=== PATIENT | female | born 1945 | race Caucasian/White ===

== ENCOUNTER 2019-08-09 11:30 | Outpatient (CLI) | payer MEDICARE, SELFPAY ==
--- NOTE | ~2019-08-09 | XR_ITS ---
EXAMINATION: XR lumbar spine 2-3V DATE: 08/09/2019 11:57 INDICATION: Low back pain TECHNIQUE: Anteroposterior and lateral views of the lumbar spine, and cone-down lateral view of the l umbosacral junction were obtained. COMPARISON: 04/30/2018. FINDINGS: There is no fracture, dislocation, or subluxation. The vertebral body heights are normal. T here is severe loss of intervertebral disc space height at L4-5 and moderate loss of intervertebral d isc space height throughout the remainder of the lumbar spine. A chronic compression fracture of T11 is noted. Degenerative osteophytes project from the anterior endplates of multiple vertebral bodies. There is severe facet osteoarthritis of the lower lumbar spine. Surgical changes are noted in the up per abdomen. IMPRESSION: 1. Severe lumbar spondylosis without acute findings. Reviewed, dictated and finalized at location A.
== END 2019-08-09 11:31 | disposition home or self-care (01) ==
LOC: CHSIMG 11:36
PROVIDERS: PCP Internal Medicine; Visit Provider Internal Medicine
DX: M54.5 Low back pain (principal)
CPT/HCPCS: 72100

== ENCOUNTER 2019-08-17 06:52 | Outpatient (CLI) | payer MEDICARE, SELFPAY ==
--- NOTE | ~2019-08-17 | MR_ITS ---
EXAMINATION: MR lumbar spine wo con EXAM DATE: 08/17/2019 07:39 INDICATION: Left back, buttock pain. States lifting injury 2 1/2 weeks ago. TECHNIQUE: Multi-sequential, multiplanar MR images of the lumbar spine were obtained without contrast . Sagittal T1, T2, T2 fat saturation images. Axial T2 weighted images. There is no prior study for comparison. FINDINGS: Thoracolumbar dilated nerve root sleeves, not clinically significant. Moderate to severe lo ss of the L4-5 disc height, mild to moderate loss at the other lumbar levels.. Only minimal endplate degenerative signal change. Small Schmorl's nodes. The vertebral bodies are aligned in the AP dimensi on. The conus medullaris terminates at the L1/2 level and has normal signal intensity and morphology. Paraspinal soft tissue is unremarkable. Level by level evaluation: T12-L1: Disc does not extend beyond the endplate margin. Facet arthropathy: None. Neural foraminal stenosis: No stenosis. Central canal stenosis: No stenosis. L1-L2: There is a mild diffuse disc bulge. Facet arthropathy: Mild. Neural foraminal stenosis: No stenosis. Central canal stenosis: No stenosis. L2-L3: There is a minimal diffuse disc bulge. Facet arthropathy: Mild. Neural foraminal stenosis: No stenosis. Central canal stenosis: No stenosis. L3-L4: There is a mild diffuse disc bulge. Facet arthropathy: Mild. Neural foraminal stenosis: No stenosis. Central canal stenosis: No stenosis. L4-L5: There is a mild diffuse disc bulge. Facet arthropathy: Mild. Neural foraminal stenosis: Mild right. Central canal stenosis: No stenosis. L5-S1: There is a mild diffuse disc bulge. Facet arthropathy: Mild. Neural foraminal stenosis: Mild right. Central canal stenosis: No stenosis. IMPRESSION: 1. Overall moderate lumbar disc disease and mild facet arthropathy. Reviewed, dictated and finalized at location A.
== END 2019-08-17 06:53 | disposition home or self-care (01) ==
LOC: CHSIMG 06:53
PROVIDERS: PCP Internal Medicine; Visit Provider Internal Medicine
DX: M54.5 Low back pain (principal); M54.10 Radiculopathy, site unspecified
CPT/HCPCS: 72148

== ENCOUNTER 2019-08-20 16:42 | Outpatient (RCR) | payer MEDICARE, SELFPAY ==
--- NOTE | 2019-08-20 17:40 | PTOPEVAL ---
Thank you for referring Andreina Dinh to [facility]. Please review, sign, date and return this plan of care SARITA. I agree with and certify that the following plan of care is medically necessary. Referring Physician Date Admitting Provider: Attending Provider: Denis Hanesn MD Referring Provider: *PT Outpatient Evaluation Start: 08/20/19 16:59 Freq: Status: Active Protocol: Document 08/20/19 17:01 J (Rec: 08/20/19 17:32 [facility] [id number]) Therapy Assessment Status Assessment Status Assessment Status Evaluation Evaluation Information Problem Diagnosis low back pain, L buttock pain Onset 07/31/19 Additional Evaluation Detail oswestry = 36% functionally declined Subjective Information patient reports she has been Query Text:As Reported By Patient/ having pain in the low back Family for about 3 weeks. she reports no specific injury, but reports she does remember lifting heavy boxes and increased pain began the next few days. she reports the pain has been getting worse. she reports she has no pain with sitting in her recliner shifted to her R side. she reports she is able to stand with support with low pain. however, increased pain with movement and twisting. she reports pain in the L buttock and in the posterior thigh. Prior Level of Function Comments Additional Prior Level of Function she reports she is limited in Comments her normal walking on level ground and up and down steps due to this pain. no cane or AD prior to pain in the back/ buttock. Pain Assessment Timing of Pain Assessment Timing of Pain Assessment Assessment Pain Scale Pain Scale Used Numeric (1 - 10) Self Report Pain Assessment Left Posterior Buttock(s) Reported Pain Level 5 Pain Description Soreness,Tender on Palpation Lowest Pain Intensity 5 Greatest Pain Intensity 8 Pain Aggravating Factors Exercise/Activity,Walking Pain Score Pain Score 5: Self Report Cervical and Lumbar ROM Lumbar ROM Lumbar Flexion Active Ankle Query Text:Hands to: Lumbar Extension (0-40) 15
== END 2019-09-18 09:25 | disposition home or self-care (01) ==
LOC: CHSPT 16:42
PROVIDERS: PCP Internal Medicine; Visit Provider Internal Medicine
DX: M51.36 Other intervertebral disc degeneration, lumbar region (principal)
CPT/HCPCS: 97014; 97110; 97140; 97161; G0283

== ENCOUNTER 2020-03-05 10:27 | Outpatient (CLI) | payer MEDICARE, SELFPAY ==
[2020-03-05 11:22] LABS: SARS-CoV-2 Ag Negative (Negative)
== END 2020-03-05 10:28 | disposition home or self-care (01) ==
LOC: CHSLAB 10:29
PROVIDERS: PCP Internal Medicine; Visit Provider Internal Medicine
DX: Z20.822 Contact with and (suspected) exposure to COVID-19 (principal)
CPT/HCPCS: 87426; C9803

== ENCOUNTER 2020-07-01 11:28 | Outpatient (CLI) | payer MEDICARE, SELFPAY ==
--- NOTE | ~2020-07-01 | XR_ITS ---
XR wrist RT min 3V DATE: 07/01/2020 11:44 INDICATION: Right wrist injury from fall. Lateral pain TECHNIQUE: 4 views COMPARISON: 08/08/2007 right forearm FINDINGS: No fracture or dislocation, periosteal reaction or bone destruction, significant joint spac e narrowing or chondrocalcinosis or erosive change. IMPRESSION: No significant abnormality Reviewed, dictated and finalized at location A. IMPRESSION: No significant abnormality
== END 2020-07-01 11:29 | disposition home or self-care (01) ==
LOC: CHSIMG 11:30
PROVIDERS: PCP Internal Medicine; Visit Provider Internal Medicine
DX: S69.91XA Unspecified injury of right wrist, hand and finger(s), initial encounter (principal)
CPT/HCPCS: 73110

== ENCOUNTER 2020-08-11 08:48 | Outpatient (CLI) | payer MEDICARE, SELFPAY ==
--- NOTE | ~2020-08-11 | XR_ITS ---
XR knee LT 3V 08/11/2020 09:07 Indication: Left knee pain Procedure: 4 views left knee Comparison: No prior studies for comparison. Findings: There is mild osteoarthritis. Osteopenia. No acute fracture or traumatic malalignment. No s ignificant joint effusion. No foreign bodies. There are vascular calcifications. Impression: 1: Mild osteoarthritis of the left knee. Reviewed, dictated and finalized at location B. Impression: 1: Mild osteoarthritis of the left knee.
== END 2020-08-11 08:49 | disposition home or self-care (01) ==
LOC: CHSLAB 08:49
PROVIDERS: PCP Internal Medicine; Visit Provider Internal Medicine
DX: M25.562 Pain in left knee (principal)
CPT/HCPCS: 73562

== ENCOUNTER 2020-10-01 13:53 | Outpatient (CLI) | payer MEDICARE, SELFPAY ==
[2020-10-01 14:11] LABS: Basophils Absolute Auto 0.07 K/mm3 (0.00-0.10); Basophils Percent Auto 1.5 % (0.0-1.0); Eosinophils Absolute Auto 0.11 K/mm3 (0.02-0.50); Eosinophils Percent Auto 2.4 % (1.0-6.0); Hematocrit 33.4 % (35.0-42.0); Hemoglobin 10.8 g/dL (11.7-13.8); Immature Granulocyte Absolute 0.01 K/mm3 (0.00-0.00); Immature Granulocyte Percent A 0.2 % (0.0-0.0); Lymphocytes Absolute Auto 1.23 K/mm3 (1.10-4.50); Lymphocytes Percent Auto 26.7 % (18.0-42.0); Mean Corpuscular HGB Conc 32.3 g/dL (32.0-36.0); Mean Corpuscular Hemoglobin 30.5 pg (27.0-31.0); Mean Corpuscular Volume 94.4 fL (78.0-102.0); Mean Platelet Volume 11.8 fl (9.2-11.8); Monocytes Absolute Auto 0.62 K/mm3 (0.10-0.90); Monocytes Percent Auto 13.4 % (2.0-11.0); Neutrophils Absolute Auto 2.6 K/mm3 (1.7-7.2); Neutrophils Percent Auto 55.8 % (50.0-70.0); Platelet Count Result 240 K/mm3 (150-420); Red Blood Count 3.54 M/mm3 (4.20-5.40); Red Cell Distribution Width 15.1 % (11.6-14.4); White Blood Count 4.6 K/mm3 (4.8-10.8)
[2020-10-01 14:53] LABS: Alanine Aminotransferase 38 U/L (14-59); Albumin Level 2.9 g/dL (3.4-5.0); Alkaline Phosphatase 167 U/L (46-116); Anion Gap 10 mmol/L (8-16); Aspartate Amino Transferase 41 U/L (15-37); Bilirubin,Total 0.6 mg/dL (0.00-1.00); Blood Urea Nitrogen 23 mg/dL (7-18); Calcium 9.3 mg/dL (8.5-10.1); Carbon Dioxide 25 mmol/L (21-32); Chloride 110 mmol/L (98-108); Estimated Glomerular Filt Rate 41; Glucose 121 mg/dL (70-99); Osmolality Calculated 304 mOsm/kg (285-295); Potassium 4.6 mmol/L (3.5-5.1); Sodium 145 mmol/L (136-145); Total Protein 7.4 g/dL (6.4-8.2)
[2020-10-06 18:38] LABS: Alpha Fetoprotein Tumor Marker 2.5 ng/mL (<6.1)
== END 2020-10-01 13:54 | disposition home or self-care (01) ==
LOC: CHSLAB 13:57
PROVIDERS: PCP Internal Medicine
DX: K75.4 Autoimmune hepatitis (principal)
CPT/HCPCS: 36415; 80053; 82105; 85025; 85610

== ENCOUNTER 2021-02-19 10:17 | Outpatient (CLI) | payer OTHER, SELFPAY ==
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
== END 2021-02-19 10:18 | disposition home or self-care (01) ==
PROVIDERS: PCP Internal Medicine; Visit Provider Internal Medicine
DX: M54.2 Cervicalgia (principal)
CPT/HCPCS: 72040

== ENCOUNTER 2021-02-23 09:29 | Outpatient (RCR) | payer OTHER, MEDICARE, SELFPAY ==
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
== END 2021-03-19 10:28 | disposition home or self-care (01) ==
LOC: CHSPT 09:29
PROVIDERS: PCP Internal Medicine; Visit Provider Internal Medicine
DX: M54.2 Cervicalgia (principal)
CPT/HCPCS: 97014; 97110; 97140; 97161; G0283

== ENCOUNTER 2021-04-02 08:30 | Outpatient (CLI) | payer MEDICARE, SELFPAY ==
--- NOTE | ~2021-04-02 | DEXA_ITS ---
Bone Density Report Name: ASHLYN BHAT Age: 76 Sex: Female Ethnicity: White Date of : 1945 Indication: postmenopausal; screening for osteoporosis; height loss; secondary osteoporosis; Referring Provider: Denis Hansen Study: Bone densitometry was performed. Exam Date: April 02, 2021 Accession number: [id number] Bone Density: Region BMD T-score Z-score Classification AP Spine(L1-L4) 0.839 -1.9 0.5 Osteopenia Femoral Neck (Left) 0.509 -3.1 -1.0 Osteoporosis Total Hip (Left) 0.636 -2.5 -0.7 Osteoporosis Femoral Neck (Right) 0.480 -3.3 -1.2 Osteoporosis Total Hip (Right) 0.581 -3.0 -1.2 Osteoporosis Femoral Neck Mean 0.495 -3.2 -1.1 Osteoporosis Total Hip Mean 0.609 -2.7 -1.0 Osteoporosis World Health Organization criteria for BMD impression classify patients as: Normal (T-score at or above -1.0), Osteopenia (T-score between -1.0 and -2.5), or Osteoporosis (T-score at or below -2.5). 10-year Fracture Risk: FRAX not reported because: Some T-score for Spine Total or Hip Total or Femoral Neck at or below -2.5 Treated for osteoporosis Clinical Information Provided by Patient: Has secondary osteoporosis Is being treated for osteoporosis Has used the following medications: Vitamin D Patient maximum height was 67 Menopause Age: 49 No regular weight bearing exercise Drinks caffeinated beverages Onset of menses at age 13 Number of children 4 Impression: The patient has osteoporosis, based on the Right Femoral Neck T-score. Discussion: It is important to ask patients whether they are taking their medications and to encourage continued and appropriate compliance with their osteoporosis therapies to reduce fracture risk. It is also important to review their risk factors and encourage appropriate calcium and vitamin D intakes, exercise, fall prevention and other lifestyle measures. Follow-Up: Consider a repeat BMD and Vertebral Fracture Assessment (VFA) exam in 2 years or sooner if medically necessary, to reassess this patient's status. Reported by: Dr. Benjamin Willoughby on 04/02/2021 9:09:00 AM. Reviewed, dictated and finalized at location A. AMY
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
== END 2021-04-02 08:31 | disposition home or self-care (01) ==
LOC: CHSIMG 08:32
PROVIDERS: PCP Internal Medicine; Visit Provider Internal Medicine
DX: M81.0 Age-related osteoporosis without current pathological fracture (principal); R07.9 Chest pain, unspecified
CPT/HCPCS: 71046; 77080

== ENCOUNTER 2021-05-04 09:45 | Outpatient (CLI) | payer MEDICARE, SELFPAY ==
[2021-05-04 10:00] VITALS: BMI 22.6
[2021-05-04] MEDS: ZOLEDRONIC ACID 5 MG/100 ML 100 ML 400 MG IVPB (10:00)
[2021-05-04 10:01] VITALS: BP 128/74; PULSE 67; RESP 14; TEMP 36.4; O2SAT 97
--- NOTE | 2021-05-04 10:18 | PC.NURSE ---
Patient here for yearly IV Reclast infusion. Education given on medication. No concerns voiced. IV Reclast administered. See MAR. Tolerated well. Safe exit of hospital.
== END 2021-05-04 09:46 | disposition home or self-care (01) ==
LOC: CHSLAB 09:49 → CHSTREATRM 09:49
PROVIDERS: PCP Internal Medicine; Visit Provider Internal Medicine
DX: M81.0 Age-related osteoporosis without current pathological fracture (principal)
CPT/HCPCS: 96374; J3489

== ENCOUNTER 2021-09-29 12:56 | Outpatient (CLI) | payer MEDICARE, SELFPAY ==
--- NOTE | ~2021-09-29 | XR_ITS ---
EXAM: XR knee RT min 4V DATE: 09/29/2021 13:39 HISTORY: Right knee pain,WORSE WITH STAIRS . COMPARISON: None available. FINDINGS: Severely decreased mineralization. No fracture or dislocation. Serpiginous metaphyseal [place] in the proximal bilateral tibia likely representing infarct or enchondroma, of doubtful clinic al significance. Severe lateral and moderate medial joint space narrowing. No erosion or periosteal c hange. Scattered vascular calcification.. IMPRESSION: . Reviewed, dictated and finalized at location K. IMPRESSION: .
== END 2021-09-29 12:57 | disposition home or self-care (01) ==
LOC: CHSIMG 12:58
PROVIDERS: PCP Internal Medicine; Visit Provider Internal Medicine
DX: M25.561 Pain in right knee (principal)
CPT/HCPCS: 73564

== ENCOUNTER 2022-05-12 10:34 | Emergency (ER) | payer MEDICARE, SELFPAY ==
--- NOTE | ~2022-05-12 | CT_ITS ---
EXAMINATION: CT brain wo con INDICATION: Headache COMPARISON: None TECHNIQUE: Standard unenhanced head CT. The dose-length product (DLP) was 605.33 mGy-cm. The mA was a djusted according to patient size. Iterative reconstruction technique was employed. FINDINGS: There is no acute intraparenchymal hemorrhage. No evidence of mass lesion. No evidence of a cute infarction. There is mild periventricular and subcortical hypodensity probably related to small vessel ischemic disease. There is mild prominence of the sulci and ventricles related to cerebral atr ophy. Intracranial calcified cerebral atherosclerosis is noted. There are no extra-axial collections. There is no mass effect or midline shift. Changes in the globes are likely from ocular lens surgery. The visualized sinuses and mastoid air cells are well aerated. IMPRESSION: 1. No acute intracranial abnormality. 2. Age related findings. Reviewed, dictated and finalized at location L.
--- NOTE | ~2022-05-12 | CT_ITS ---
EXAMINATION: CTA chest PE protocol DATE: 05/12/2022 12:02 INDICATION: Dizziness. Elevated d-dimer. TECHNIQUE: Computed tomography (CT) pulmonary angiogram of the chest was performed with 100 mL Omnipa que-350 intravenous contrast. Additional 3D reconstructions utilizing coronal maximum intensity proje ction (MIP) were performed. Automated exposure control and iterative reconstruction technique were em ployed. The dose-length product was 181.55 mGy-cm. COMPARISON: Chest CT dated 04/30/2018 FINDINGS: Excellent contrast opacification of the pulmonary arteries. There is mild streak artifact from dense contrast in the superior vena cava and right atrium. Minimal scattered respiratory motion artifact do es not significantly limit evaluation. No pulmonary embolism. Linear band of discoid atelectasis/scar ring in the right lower lobe. There are also couple calcified right lower lobe nodules along with ingrid cified right hilar lymph nodes consistent with old granulomatous disease. No pneumonia, pulmonary shannon ma, pleural effusion or pneumothorax. Cardiomegaly. Atherosclerotic coronary artery calcific location . No pericardial effusion. Dependently layering fluid within the chronically patulous esophagus with no significant change in relatively diffuse relatively uniform circumferential esophageal wall thicke gray likely related to chronic esophagitis. There are postoperative changes with multiple surgical cl ips in the epigastric region. Cirrhotic nodular liver with paraesophageal varices. No interval change in multiple perineural cysts along the neural foramina at multiple levels in the thoracic spine linn g with a couple larger but attenuation meningoceles or potentially schwannomas at the bilateral T9-T1 0 neural foramina. Mild thoracic dextrocurvature with moderate spondylosis. Chronic T11 compression f racture with 20% anterior vertebral body height loss. IMPRESSION: 1. No pulmonary embolism or other acute cardiopulmonary disease. 2. Chronic patulous esophagus with chronic diffuse esophageal wall thickening most likely related to esophagitis such as in the setting of reflux. 3. Cardiomegaly. 4. Cirrhosis of the liver with portal venous hypertension including paraesophageal varices. Reviewed, dictated and finalized at location A. IMPRESSION: 1. No pulmonary embolism or other acute cardiopulmonary disease. 2. Chronic patulous esophagus with chronic diffuse esophageal wall thickening m ost likely related to esophagitis such as in the setting of reflux. 3. Cardiomegaly. 4. Cirrhosis of the liver with portal venous hypertension including paraesophag eal varices.
[2022-05-12 10:48] VITALS: BP 98/70; PULSE 110; RESP 16; TEMP 35.7; O2SAT 99
--- NOTE | 2022-05-12 10:52 | ECG_ITS ---
Rate 104 AR 0 QRSd 99 QT 353 QTc 465 --Mears-- P QRS 9 T 3 ATRIAL FIBRILLATION WITH RAPID VENTRICULAR RESPONSE BORDERLINE ST-T WAVE ABNORMALITY- DIFFUSE LEADS BASELINE WANDER- I, AVR, AVL, AVF ABNORMAL ECG NO PREVIOUS ECG AVAILABLE FOR COMPARISON Electronically Signed On 05-12-2022 11:24:47 CDT by Eliud REYES
[2022-05-12 11:03] LABS: Appearance Urine Slightly Cloudy (Clear); Bilirubin Urine Negative (Negative); Blood Urine Trace-Intact (Negative); Color Urine Light Yellow (Yellow); Glucose Urine UA Negative (Negative); Ketones Urine Negative (Negative); Leukocyte Esterase Ur 3+ LEU/UL (Negative); Nitrate Urine Positive (Negative); Protein Urine Negative (Negative); Specific Grav Ur 1.015 (1.010-1.020); pH Urine 6.5 (5.0-8.0)
[2022-05-12 11:15] LABS: Basophils Absolute Auto 0.07 K/mm3 (0.00-0.10); Basophils Percent Auto 1.5 % (0.0-1.0); Eosinophils Absolute Auto 0.15 K/mm3 (0.02-0.50); Eosinophils Percent Auto 3.2 % (1.0-6.0); Hematocrit 35.9 % (35.0-42.0); Hemoglobin 12.2 g/dL (11.7-13.8); Immature Granulocyte Absolute 0.01 K/mm3 (0.00-0.00); Immature Granulocyte Percent A 0.2 % (0.0-0.0); Lymphocytes Absolute Auto 1.14 K/mm3 (1.10-4.50); Lymphocytes Percent Auto 24.1 % (18.0-42.0); Mean Corpuscular Hemoglobin 31.7 pg (27.0-31.0); Mean Corpuscular Volume 93.2 fL (78.0-102.0); Mean Platelet Volume 12.3 fl (9.2-11.8); Monocytes Absolute Auto 0.55 K/mm3 (0.10-0.90); Monocytes Percent Auto 11.6 % (2.0-11.0); Neutrophils Absolute Auto 2.8 K/mm3 (1.7-7.2); Neutrophils Percent Auto 59.4 % (50.0-70.0); Platelet Count Result 220 K/mm3 (150-420); Red Blood Count 3.85 M/mm3 (4.20-5.40); Red Cell Distribution Width 16.4 % (11.6-14.4); White Blood Count 4.7 K/mm3 (4.8-10.8)
[2022-05-12 11:21] LABS: Add Urine Microscopic? NO; Bacteria Urine 3+ /hpf; RBC Urine 0-2 /hpf (0-2); Renal Epithelial Cells Urine Rare /hpf; Squamous Epithelial Cell Urine Rare /hpf (Few); WBC Urine 21-30 /hpf (0-3)
[2022-05-12 11:29] LABS: Partial Thromboplastin Time 26.2 SEC (23.90-30.70); Prothrombin Time 10.8 Seconds (9.50-12.10)
--- NOTE | 2022-05-12 11:30 | PC.NURSE ---
elevated Ddimer 1.38, erp is notified.
[2022-05-12 11:31] LABS: D Dimer 1.38 mg/L (0.19-0.50)
[2022-05-12 11:36] LABS: Alanine Aminotransferase 31 U/L (14-59); Albumin Level 2.1 g/dL (3.4-5.0); Alkaline Phosphatase 148 U/L (46-116); Anion Gap 11 mmol/L (8-16); Aspartate Amino Transferase 38 U/L (15-37); Bilirubin,Total 0.7 mg/dL (0.00-1.00); Blood Urea Nitrogen 22 mg/dL (7-18); Calcium 9.7 mg/dL (8.5-10.1); Carbon Dioxide 24 mmol/L (21-32); Chloride 112 mmol/L (98-108); Estimated CRCL calculation 28 ml/min; Estimated Glomerular Filt Rate 40; Glucose 141 mg/dL (70-99); Magnesium 1.7 mg/dL (1.8-2.4); NT Pro B Type Natriuretic Pept 5875 pg/mL (0-450); Osmolality Calculated 309 mOsm/kg (285-295); Potassium 3.5 mmol/L (3.5-5.1); Sodium 147 mmol/L (136-145); Troponin I 16.5 ng/L (0.00-60.4)
[2022-05-12] MEDS: SODIUM CHLORIDE 0.9% IV 500 ML 999 ML IV CONT (13:52)
--- NOTE | 2022-05-12 14:12 | ED.DIZZY ---
HPI - Dizziness General Chief Complaint: Dizziness Stated Complaint: dizzy spells Time Seen by Provider: 05/12/22 10:37 Source: patient Mode of arrival: ambulatory Limitations: no limitations History of Present Illness HPI Narrative: this is a 77-year-old female with a history of atrial fibrillation CHF recently started on spironolactone, and currently on furosemide. Presents with some dizziness for last 3 days, has a history of atrial fibrillation and is currently on Eliquis patient denies any chest pain there is currently no shortness of breath does have peripheral edema but patient family state that this is improved since she started on spironolactone. There is no nausea vomiting no chest pain no abdominal pain no diarrhea constipation no frontal sinus pressure no bilateral ear pressure. MD elicited complaint: dizziness Onset (ago): day(s) Timing: gradual onset Severity: mild Description: sense of movement Context: change in medication Exacerbating factors: movement/ambulation Relieving factors: remaining still Associated symptoms: denies other symptoms Related Data Home Medications Medication Instructions Recorded Confirmed apixaban 5 mg tablet (Eliquis) 5 mg PO BID 05/04/21 05/12/22 gabapentin 100 mg tablet 200 mg PO TID 05/04/21 05/12/22 pravastatin 20 mg tablet 10 mg PO DAILY 05/04/21 05/12/22 spironolactone 25 mg tablet 25 mg PO DAILY 05/04/21 05/12/22 metoprolol succinate 25 mg 12.5 mg PO DAILY 05/12/22 05/12/22 tablet,extended release 24 hr metoprolol tartrate 25 mg tablet 25 mg PO DAILY 05/12/22 05/12/22 omeprazole 40 mg capsule,delayed 40 mg PO BID 05/12/22 05/12/22 release ursodiol 500 mg tablet 500 mg PO BID 05/12/22 05/12/22 Allergies Allergy/AdvReac Type Severity Reaction Status Date / Time Sulfa (Sulfonamide Allergy Hives Verified 05/12/22 10:52 Antibiotics) Review of Systems Review of Systems: All systems reviewed & are unremarkable except as noted in HPI and below PMFSH Past Medical History Medical History Afib CHF (congestive heart failure) Exam Const: General: healthy appearing Nutritional Appearance: well nourished Orientation/consciousness: patient oriented x3 Limitations: no limitations HENMT: Head: normal to inspection Face and sinus: normal facial exam Mouth: Yes Normal oral and palatal mucosa present Eyes: Conjunctivae: conjunctivae normal EOM: EOMs intact bilaterally Neck: Neck: normal visual inspection Chest: Chest palpation & inspection: normal inspection of the chest Resp: Effort & Inspection: normal respiratory effort Cardio: Rate: regular rate Rhythm: regular rhythm GI: Auscultation: normal bowel sounds : General: Yes bladder normal to palpation Urinary Catheter: Urinary Catheter: patent and draining Back/Spine/Pelvis: Back: no CVA tenderness Skin: General skin exam: normal color Rashes: no rashes Wounds: no wounds Neuro: General: patient oriented x3 Cranial nerves: Yes Nystagmus not present Speech: normal speech Gait exam (Neuro): Normal gait present Extrem: General: normal to inspection Psych: Mental Status: mental status grossly normal Affect: normal affect Attitude: cooperative Course Course Emergency Course: labs an EKG reviewed with patient and family patient had an elevated D-dimer and CTA performed which shows no pulmonary embolism patient had a BNP performed which was 5875, patient with peripheral edema started on spironolactone not too long ago and states that her edema has markedly improved. Patient had a UA performed which shows that she has a urinary tract infection and given IV antibiotics and small bolus of 250 mL of normal saline. Otherwise her labs and vitals reviewed were stable patient does have according the family a lower blood pressure readings. Her symptoms of dizziness has improved. Vital Signs Vital signs: Vital Signs Temperature 35.7 C L 03
[2022-05-12 14:42] VITALS: BP 103/63; PULSE 100
[2022-05-12 14:43] VITALS: BP 102/59; PULSE 114
[2022-05-12 15:02] VITALS: BP 87/47; PULSE 89; RESP 16; TEMP 36.3; O2SAT 98
--- NOTE | 2022-05-12 16:15 | PC.NURSE ---
On 05/12/22, the student, [wilbert guzman ], provided care and completed [facility] documentation on this patient. I have reviewed the student's documentation and agree with the findings.
--- NOTE | 2022-05-14 12:21 | PC.NURSE ---
reviewed final urine culture results. no change in plan of care needed.
== END 2022-05-12 15:10 | disposition home or self-care (01) ==
PROVIDERS: Emergency Provider Emergency Medicine; PCP Internal Medicine
DX: N30.00 Acute cystitis without hematuria (principal); E86.0 Dehydration; I48.91 Unspecified atrial fibrillation; I50.9 Heart failure, unspecified; Z79.01 Long term (current) use of anticoagulants
CPT/HCPCS: 36415; 70450; 71275; 80053; 81003; 83605; 83735; 83880; 84484; 85025; 85380; 85610; 85730; 87077; 87086; 87088; 87186; 93005; 96365; 99284; J0696; J7040; J7050; Q9967

== ENCOUNTER 2022-08-24 12:47 | Outpatient (CLI) | payer MEDICARE, SELFPAY ==
--- NOTE | ~2022-08-24 | XR_ITS ---
EXAMINATION: XR knee RT 3V DATE: 08/24/2022 13:12 INDICATION: Right knee pain and worsening imbalance TECHNIQUE: Anteroposterior, sunrise and crosstable lateral views of the right knee were obtained COMPARISON: 09/29/2021 FINDINGS: Alignment is normal. No fracture. Severe joint space narrowing in the lateral compartment best appre ciated on the lateral projection and mild respiratory the patellofemoral compartment. No joint effusi on/layering lipohemarthrosis. Soft tissues are unremarkable. IMPRESSION: 1. Right knee osteoarthritis, severe in the lateral compartment and mild in the patellofemoral compar tment. Reviewed, dictated and finalized at location B. IMPRESSION: 1. Right knee osteoarthritis, severe in the lateral compartment and mild in the patellofemoral compartment.
== END 2022-08-24 12:48 | disposition home or self-care (01) ==
LOC: CHSIMG 12:48
PROVIDERS: PCP Internal Medicine; Visit Provider Internal Medicine
DX: M25.561 Pain in right knee (principal); M17.11 Unilateral primary osteoarthritis, right knee
CPT/HCPCS: 73562

== ENCOUNTER 2022-09-19 06:32 | Outpatient (CLI) | payer MEDICARE, SELFPAY ==
--- NOTE | ~2022-09-19 | MR_ITS ---
EXAMINATION: MR brain IAC wo/w con DATE: 09/19/2022 08:11 INDICATION: Dizziness. TECHNIQUE: Magnetic resonance imaging (MRI) of the brain, brainstem, and internal auditory canals was performed without and with 11 mL MultiHance intravenous contrast. COMPARISON: Brain MRI 07/22/2017, head CT 05/12/2022 FINDINGS: The pituitary is enlarged with height of 13 mm, worsened from 5 mm on 07/22/17. The infundibu lum is displaced to the left. There is a 13 x 14 x 12 mm mass in the pituitary that demonstrates incr eased T1 and T2 weighted signal intensity without contrast enhancement. There are scattered areas of nonspecific increased T2-weighted signal intensity in the cerebral white matter, which is within norm al limits for the patient's age. There is no intracranial hemorrhage or acute ischemic infarct. The v entricles are normal in size. There is mild mucosal thickening in the paranasal sinuses. There are li ruthy changes of ocular lens replacement surgeries. The mastoid air cells are normal. IMPRESSION: 1. 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 Reviewed, dictated and finalized at location A. IMPRESSION: 1. 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
== END 2022-09-19 06:33 | disposition home or self-care (01) ==
PROVIDERS: PCP Internal Medicine; Visit Provider Nurse Practitioner Family
DX: R42 Dizziness and giddiness (principal)
CPT/HCPCS: 70553; A9577

== ENCOUNTER 2022-12-06 13:59 | Emergency (ER) | payer MEDICARE, SELFPAY ==
--- NOTE | ~2022-12-06 | CT_ITS ---
EXAMINATION: CT pelvis wo con DATE: 12/06/2022 14:35 INDICATION: Coccygeal pain post fall TECHNIQUE: Computed tomography (CT) of the pelvis was performed without intravenous contrast. Automat ed exposure control and iterative reconstruction technique were employed.The dose-length product was 215.33 mGy-cm. COMPARISON: 06/26/2017 FINDINGS: There is a transverse process extending across the sacrum at the level of S4. There is up to 6 mm ant erior displacement of the caudal fragment. No other fractures identified. Mild bilateral sacroiliac a nd hip osteoarthritis. Moderate to severe disc height loss at L4-L5 and mild disc height loss at L5-S 1. Moderate lower lumbar facet osteoarthritis. Nodular liver surface consistent with cirrhosis. Chron ic UPJ obstruction with mild left hydronephrosis. Again seen are perirectal varices consistent with p ortal venous hypertension. Bowels are otherwise unremarkable. Bladder is normal. No pathologically en larged cervical inguinal lymphadenopathy. IMPRESSION: 1. Mild displacement of fracture extending transversely across S4. 2. Cirrhosis with prominent perirectal collaterals consistent with cirrhosis. 3. Chronic left UPJ obstruction with mild left hydroureteronephrosis without significant change since 2017. 4. Moderate to severe lower lumbar spondylosis. Reviewed, dictated and finalized at location A. IMPRESSION: 1. Mild displacement of fracture extending transversely across S4. 2. Cirrhosis with prominent perirectal collaterals consistent with cirrhosis. 3. Chronic left UPJ obstruction with mild left hydroureteronephrosis without si gnificant change since 2018. 4. Moderate to severe lower lumbar spondylosis.
--- NOTE | ~2022-12-06 | XR_ITS ---
XR tibia fibula LT 2V DATE: 12/06/2022 14:35 INDICATION: Fall. Anterior skin tears. TECHNIQUE: AP and crosstable lateral views of right lower leg COMPARISON: None FINDINGS: There is diffuse osteopenia. No fracture or dislocation, periosteal reaction or bone destruction. IMPRESSION: Osteopenia Reviewed, dictated and finalized at location A. IMPRESSION: Osteopenia
[2022-12-06 14:00] VITALS: BP 127/58; PULSE 58; RESP 16; TEMP 36.6; O2SAT 98
--- NOTE | 2022-12-06 14:09 | ED.FALL ---
HPI - Fall General Chief Complaint: Fall Stated Complaint: fall/tail bone pain Time Seen by Provider: 12/06/22 14:08 Source: patient, EMS and RN notes reviewed Mode of arrival: EMS Limitations: no limitations History of Present Illness MD complaint: fall Onset (ago): minute(s) (30) Fall from: standing Fall witnessed: no Place fall occurred: home Loss of consciousness: none Prolonged down time: no Symptoms prior to fall: none Context: tripped/slipped Location of injury: buttocks Location of injury - extremities: Left: lower leg Severity: moderate Quality: dull and aching Associated symptoms (after fall): denies Related Data Home Medications Medication Instructions Recorded Confirmed apixaban 5 mg tablet (Eliquis) 5 mg PO BID 05/04/21 12/06/22 gabapentin 100 mg tablet 300 mg PO TID 05/04/21 12/06/22 pravastatin 20 mg tablet 10 mg PO DAILY 05/04/21 12/06/22 spironolactone 25 mg tablet 25 mg PO DAILY 05/04/21 12/06/22 metoprolol succinate 25 mg 12.5 mg PO DAILY 05/12/22 12/06/22 tablet,extended release 24 hr omeprazole 40 mg capsule,delayed 40 mg PO BID 05/12/22 12/06/22 release ursodiol 500 mg tablet 550 mg PO BID 05/12/22 12/06/22 lactulose 10 gram/15 mL oral 30 ml PO DAILY 12/06/22 12/06/22 solution midodrine 2.5 mg tablet 7.5 mg PO DAILY 12/06/22 12/06/22 Allergies Allergy/AdvReac Type Severity Reaction Status Date / Time Sulfa (Sulfonamide Allergy Hives Verified 12/06/22 14:07 Antibiotics) Review of Systems Review of Systems: All systems reviewed & are unremarkable except as noted in HPI and below PMFSH Past Medical History Medical History (Updated 12/06/22 @ 15:09 by Jose Roberto Arora MD) Afib CHF (congestive heart failure) GERD (gastroesophageal reflux disease) Hyperlipidemia Exam Const: General: healthy appearing, no acute distress and alert Nutritional Appearance: well nourished Orientation/consciousness: patient oriented x3 Limitations: no limitations HENMT: Head: normal to inspection Ears: external ears normal Face/Nose/Sinus: Normal external nose present Face and sinus: normal facial exam Mouth: Yes Normal oral and palatal mucosa present Eyes: Conjunctivae: conjunctivae normal Pupils: Equal, round and reactive pupils present EOM: EOMs intact bilaterally Neck: Neck: normal visual inspection Resp: Effort & Inspection: normal respiratory effort Auscultation: clear to auscultation bilaterally Cardio: Rate: regular rate Rhythm: regular rhythm GI: GI Palp: Yes Soft to palpation and No Tenderness to palpation present (GI) Auscultation: normal bowel sounds Back/Spine/Pelvis: Cervical Spine: cervical ROM normal Thoracic/Lumbar Spine: thoraco-lumbar ROM normal Sacrum: tenderness midline Coccyx: Coccyx tenderness present on direct palpation Skin: General skin exam: normal color and abrasion ( left anterior gonzalez) Neuro: General: patient oriented x3, moves all extremities, no focal motor deficits and CN's II-XI intact bilaterally Speech: normal speech Extrem: General: normal exam except as noted and no clubbing, cyanosis or edema Left lower extremity: lower leg Details: tenderness Location: of the midshaft tibia Psych: Mental Status: mental status grossly normal Affect: normal affect Attitude: cooperative MDM - Fall Differential Diagnosis Differential diagnosis: Likely other ( contusion left leg, fracture left tibia, pelvic fracture, coccyx fracture, sacral fracture.) Discharge Plan Discharge Clinical Impression: Closed sacral fracture Qualifiers: Encounter type: initial encounter Fracture alignment: minimally displaced Patient Disposition: Home, Self-Care Condition: Stable Instructions: Sacral Fracture (ED) Additional Instructions: obtain a donut to sit on from pharmacy. Can take Tylenol in between pain medicines. Prescriptions: New hydrocodone-acetaminophen 5-325 mg tablet 1 tablet PO Q6H PRN (Reason: pain) Qty: 10 0RF No Action spi
--- NOTE | 2022-12-06 15:08 | PC.NURSE ---
at bedside. pt is awaiting results. denies any needs or complaints. will continue to monitor.
[2022-12-06 15:15] VITALS: BP 125/66; PULSE 56; RESP 18; O2SAT 98
== END 2022-12-06 15:15 | disposition home or self-care (01) ==
PROVIDERS: Emergency Provider Emergency Medicine; PCP Internal Medicine
DX: S32.10XA Unspecified fracture of sacrum, initial encounter for closed fracture (principal); I48.91 Unspecified atrial fibrillation; I50.9 Heart failure, unspecified; E78.5 Hyperlipidemia, unspecified; Z79.01 Long term (current) use of anticoagulants; Z79.899 Other long term (current) drug therapy; W01.0XXA Fall on same level from slipping, tripping and stumbling without subsequent striking against object, initial encounter
CPT/HCPCS: 72192; 73590; 99284

== ENCOUNTER 2022-12-14 12:43 | Outpatient (CLI) | payer MEDICARE, SELFPAY | END 2022-12-14 12:44 | disposition home or self-care (01) | LOC: CHSLAB 12:44 | PROVIDERS: PCP Internal Medicine; Visit Provider Internal Medicine | DX: R19.7 Diarrhea, unspecified (principal) | CPT/HCPCS: 87324 ==

== ENCOUNTER 2023-01-11 10:22 | Outpatient (CLI) | payer MEDICARE, SELFPAY ==
[2023-01-11 10:46] LABS: Basophils Percent Auto 1.8 % (0.0-1.0); Eosinophils Absolute Auto 0.23 K/mm3 (0.02-0.50); Eosinophils Percent Auto 4.1 % (1.0-6.0); Hematocrit 30.7 % (35.0-42.0); Hemoglobin 10.4 g/dL (11.7-13.8); Immature Granulocyte Absolute 0.08 K/mm3 (0.00-0.00); Immature Granulocyte Percent A 1.4 % (0.0-0.0); Lymphocytes Absolute Auto 1.28 K/mm3 (1.10-4.50); Lymphocytes Percent Auto 22.9 % (18.0-42.0); Mean Corpuscular HGB Conc 33.9 g/dL (32.0-36.0); Mean Corpuscular Hemoglobin 33.8 pg (27.0-31.0); Mean Corpuscular Volume 99.7 fL (78.0-102.0); Monocytes Absolute Auto 0.82 K/mm3 (0.10-0.90); Monocytes Percent Auto 14.7 % (2.0-11.0); Neutrophils Absolute Auto 3.1 K/mm3 (1.7-7.2); Neutrophils Percent Auto 55.1 % (50.0-70.0); Nucleated Red Blood Cells Absolute Auto 0.06 K/mm3 (0.00-0.00); Nucleated Red Blood Cells Perc 1.1 % (0-0.0); Platelet Count Result 230 K/mm3 (150-420); Red Blood Count 3.08 M/mm3 (4.20-5.40); Red Cell Distribution Width 19.9 % (11.6-14.4); White Blood Count 5.6 K/mm3 (4.8-10.8)
[2023-01-11 11:08] LABS: Alanine Aminotransferase 30 U/L (14-59); Albumin Level 1.7 g/dL (3.4-5.0); Alkaline Phosphatase 212 U/L (46-116); Anion Gap 7 mmol/L (8-16); Aspartate Amino Transferase 40 U/L (15-37); Bilirubin,Total 0.8 mg/dL (0.00-1.00); Blood Urea Nitrogen 29 mg/dL (7-18); Calcium 9.2 mg/dL (8.5-10.1); Carbon Dioxide 27 mmol/L (21-32); Chloride 110 mmol/L (98-108); Estimated Glomerular Filt Rate 49; Glucose 102 mg/dL (70-99); NT Pro B Type Natriuretic Pept 1512 pg/mL (0-450); Osmolality Calculated 303 mOsm/kg (285-295); Potassium 3.5 mmol/L (3.5-5.1); Sodium 144 mmol/L (136-145); Total Protein 6.4 g/dL (6.4-8.2)
== END 2023-01-11 10:23 | disposition home or self-care (01) ==
LOC: CHSLAB 10:26
PROVIDERS: PCP Internal Medicine; Visit Provider Internal Medicine
DX: I50.9 Heart failure, unspecified (principal)
CPT/HCPCS: 36415; 80053; 83880; 85025

== ENCOUNTER 2023-01-27 11:45 | Outpatient (CLI) | payer MEDICARE, SELFPAY ==
[2023-01-27 12:00] LABS: Basophils Absolute Auto 0.08 K/mm3 (0.00-0.10); Basophils Percent Auto 1.7 % (0.0-1.0); Eosinophils Absolute Auto 0.24 K/mm3 (0.02-0.50); Hematocrit 32.3 % (35.0-42.0); Hemoglobin 10.4 g/dL (11.7-13.8); Immature Granulocyte Absolute 0.02 K/mm3 (0.00-0.00); Immature Granulocyte Percent A 0.4 % (0.0-0.0); Lymphocytes Absolute Auto 1.14 K/mm3 (1.10-4.50); Lymphocytes Percent Auto 23.6 % (18.0-42.0); Mean Corpuscular HGB Conc 32.2 g/dL (32.0-36.0); Mean Corpuscular Hemoglobin 33.1 pg (27.0-31.0); Mean Corpuscular Volume 102.9 fL (78.0-102.0); Mean Platelet Volume 12.9 fl (9.2-11.8); Monocytes Absolute Auto 0.69 K/mm3 (0.10-0.90); Monocytes Percent Auto 14.3 % (2.0-11.0); Neutrophils Absolute Auto 2.7 K/mm3 (1.7-7.2); Nucleated Red Blood Cells Absolute Auto 0.02 K/mm3 (0.00-0.00); Nucleated Red Blood Cells Perc 0.4 % (0-0.0); Platelet Count Result 229 K/mm3 (150-420); Red Blood Count 3.14 M/mm3 (4.20-5.40); Red Cell Distribution Width 18.6 % (11.6-14.4); White Blood Count 4.8 K/mm3 (4.8-10.8)
[2023-01-27 12:22] LABS: Alanine Aminotransferase 29 U/L (14-59); Albumin Level 2.2 g/dL (3.4-5.0); Alkaline Phosphatase 207 U/L (46-116); Ammonia 36 umol/L (11-32); Anion Gap -1 mmol/L (8-16); Aspartate Amino Transferase 48 U/L (15-37); Bilirubin,Total 1.1 mg/dL (0.00-1.00); Blood Urea Nitrogen 17 mg/dL (7-18); Calcium 9.1 mg/dL (8.5-10.1); Carbon Dioxide 33 mmol/L (21-32); Chloride 106 mmol/L (98-108); Estimated Glomerular Filt Rate 41; Glucose 101 mg/dL (70-99); NT Pro B Type Natriuretic Pept 1985 pg/mL (0-450); Osmolality Calculated 287 mOsm/kg (285-295); Potassium 4.4 mmol/L (3.5-5.1); Sodium 138 mmol/L (136-145); Total Protein 6.9 g/dL (6.4-8.2)
[2023-01-27 12:29] LABS: Appearance Urine Clear (Clear); Bilirubin Urine Negative (Negative); Blood Urine Negative (Negative); Color Urine Light Yellow (Yellow); Glucose Urine UA Negative (Negative); Ketones Urine Negative (Negative); Leukocyte Esterase Ur 1+ (Negative); Nitrate Urine Negative (Negative); Protein Urine Negative (Negative); Specific Grav Ur 1.015 (1.010-1.020)
[2023-01-27 12:31] LABS: Add Urine Microscopic? YES; Bacteria Urine Trace /hpf; RBC Urine None seen /hpf (0-2); Squamous Epithelial Cell Urine Rare /hpf (Few)
== END 2023-01-27 11:46 | disposition home or self-care (01) ==
LOC: CHSLAB 11:47
PROVIDERS: PCP Internal Medicine; Visit Provider Internal Medicine
DX: I48.0 Paroxysmal atrial fibrillation (principal); K74.3 Primary biliary cirrhosis; I50.9 Heart failure, unspecified; N39.0 Urinary tract infection, site not specified
CPT/HCPCS: 36415; 80053; 81001; 82140; 83880; 85025; 87086; 87088

== ENCOUNTER 2023-09-25 14:20 | Outpatient (CLI) | payer MEDICARE, SELFPAY ==
--- NOTE | ~2023-09-25 | DEXA_ITS ---
Bone Density Report Name: ASHLYN BHAT Age: 78 Sex: Female Ethnicity: White Date of : 1945 Indication: postmenopausal osteoporosis; monitoring treatment; height loss; Referring Provider: Denis Hansen Study: Bone densitometry was performed. Exam Date: September 25, 2023 Accession number: [id number] Bone Density: Region BMD T-score Z-score Classification AP Spine(L1-L4) 0.820 -2.1 0.5 Osteopenia Femoral Neck (Left) 0.433 -3.7 -1.6 Osteoporosis Total Hip (Left) 0.583 -2.9 -1.0 Osteoporosis Femoral Neck (Right) 0.427 -3.8 -1.6 Osteoporosis Total Hip (Right) 0.527 -3.4 -1.5 Osteoporosis Femoral Neck Mean 0.430 -3.8 -1.6 Osteoporosis Total Hip Mean 0.555 -3.2 -1.3 Osteoporosis World Health Organization criteria for BMD impression classify patients as: Normal (T-score at or above -1.0), Osteopenia (T-score between -1.0 and -2.5), or Osteoporosis (T-score at or below -2.5). 10-year Fracture Risk: FRAX not reported because: Some T-score for Spine Total or Hip Total or Femoral Neck at or below -2.5 Treated for osteoporosis Previous Exams: Region Exam Age BMD T-score BMD Change BMD Change Date g/cm2 vs Baseline vs Previous AP Spine (L1-L4) 09/25/2023 78 0.820 -2.1 -0.019 (-2.2%) -0.019 (-2.2%) 04/02/2021 76 0.839 -1.9 Total Hip(Left) 09/25/2023 78 0.583 -2.9 -0.053 (-8.4%) -0.053 (-8.4%) 04/02/2021 76 0.636 -2.5 Total Hip(Right) 09/25/2023 78 0.527 -3.4 -0.054 (-9.3%) -0.054 (-9.3%) 04/02/2021 76 0.581 -3.0 *Denotes significance at 95% confidence level, LSC for AP Spine = 0.022 g/cm2, LSC for Total Hip = 0.027 g/cm2 # Denotes dissimilar scan types or analysis methods Clinical Information Provided by Patient: Is being treated for osteoporosis Has used the following medications: Reclast (i.e. zoledronate), Vitamin D, multi Patient maximum height was 67 Menopause Age: 49 No regular weight bearing exercise Drinks caffeinated beverages Onset of menses at age 13 Number of children 4 Impression: The patient has osteoporosis, based on the Right Femoral Neck T-score. No significant bone loss was observed. Discussion: PATIENT UNDER TREATMENT WITH NO SIGNIFICANT BMD LOSS SINCE LAST EXAM. In an untreated patient, BMD typically declines with age. A lack of decline or gain is usually a sign that treatment is efficacious and fracture risk is reduced. It is important to ask patients whether they are bob
== END 2023-09-25 14:21 | disposition home or self-care (01) ==
LOC: CHSIMG 14:22
PROVIDERS: PCP Internal Medicine; Visit Provider Internal Medicine
DX: Z78.0 Asymptomatic menopausal state (principal); M81.0 Age-related osteoporosis without current pathological fracture; M85.88 Other specified disorders of bone density and structure, other site
CPT/HCPCS: 77080

== ENCOUNTER 2023-10-20 09:51 | Outpatient (CLI) | payer MEDICARE, SELFPAY ==
[2023-10-20 10:10] VITALS: BP 112/54; PULSE 56; RESP 16; TEMP 35.6; O2SAT 99; BMI 20.2
--- NOTE | 2023-10-20 10:10 | PC.NURSE ---
patient here for Reclast infusion. tolerated IV start well. Patient provided with call light, denies any needs at this time.
[2023-10-20] MEDS: ZOLEDRONIC ACID 5 MG/100 ML 100 ML 400 MG IVPB (10:31)
--- NOTE | 2023-10-20 10:31 | PC.NURSE ---
Reclast infusion started, patient tolerating well. Sitting up in chair resting.
--- NOTE | 2023-10-20 10:50 | PC.NURSE ---
Patient tolerated infusion well. Encouraged patient to drink plenty of fluids and reviewed possible adverse reactions and or side effects she may experience. Patient denies any questions,IV site removed, tip intact, dressing applied to site. Patient left ambulatory.
== END 2023-10-20 10:50 | disposition home or self-care (01) ==
PROVIDERS: PCP Internal Medicine; Visit Provider Internal Medicine
DX: M81.0 Age-related osteoporosis without current pathological fracture (principal)
CPT/HCPCS: 96374; J3489

== ENCOUNTER 2023-12-18 09:51 | Outpatient (RCR) | payer MEDICARE, SELFPAY ==
--- NOTE | 2023-12-18 11:49 | PTOPEVAL1 ---
Assessment and note entered by Shaun Higuera Evaluation Information Assessment Status Evaluation Diagnosis closed displaced fracture of the right femoral neck ICD-10 Condition Codes (PT) R26.9,Weakness R53.1 Onset 11/03/23 Subjective Information Pt. reports that he was going up a ramp into a restaurant and fell when reaching for a handle. She states that she was no using an AD at the time . She reports that she underwent surgery on . She states that she had done rehab and home health therapy after the fall. She states that she has been discharged from home health. She reports that prior to her fall she was very active with driving and did not use an AD. She states that she completed all IADL's without assistance. She reports that she is not currently driving and is using a walker for ambulation. She states that her goal for therapy is to be able to walk without an AD. Reported Pain Level Pain Score 4: Self Report Assessment PT Clinical Summary Pt. is a 78 year old female who enters the clinic post hip fracture. She presents with impaired strength, impaired ROM, impaired gait, impaired balance and functional decline. Continued skilled PT is indicated in order to improve these areas to allow the pt. to be able to achieve her goal of walking normal. Plan of Care Interventions Electrical Stimulation,Gait Training,Hot Pack/Cold Pack,Manual Therapy,Neuro Re-education,Patient/ Caregiver Educati,Therapeutic Activities, Therapeutic Exercise PT Services Indicated Yes Treatment Frequency and 3x/week x 12 visits Duration These treatments will address the objective and functional deficits as defined above. The patient will be advanced safely and appropriately in order for the patient to progress towards his/her prior level of function. Additional exercises will be introduced and as well as a comprehensive home exercise program upon discharge, if needed, ?to ensure carryover of functional gains achieved in the clinic. This treatment plan has been reviewed and agreement upon by the patient.
--- NOTE | 2023-12-18 11:50 | OPREHPOC ---
Outpatient Therapy Plan of Care This is a Multidisciplinary Plan of Care that may contain components documented by all disciplines (PT, OT, and ST.) PT Problem 1 PT Problem #1 Knowledge Deficit PT Goal 1 Goal / Goal Update Pt. will be independent with a HEP addressing strength and mobility. Target Visit 2 PT Problem 2 PT Problem #2 Impaired Balance PT Goal 1 Goal / Goal Update Pt. will improve her tinetti score to 19 or greater indicating lower fall risk Target Visit 12 PT Problem 3 PT Problem #3 Impaired Gait PT Goal 1 Goal / Goal Update Pt. will complete the 6 minute walk test for a distance of 750' or greater with use of cane or no AD demonstrating improve gait efficiency Target Visit 12 PT Problem 4 PT Problem #4 Impaired Strength PT Goal 1 Goal / Goal Update Pt. will present with 4+/5 gross right l.e. strength Pt. will be able to complete 5-10 sit to stand without u.e. support indicating improved functional strength Target Visit 12
--- NOTE | 2024-01-11 12:09 | OPREHPOC ---
Outpatient Therapy Plan of Care This is a Multidisciplinary Plan of Care that may contain components documented by all disciplines (PT, OT, and ST.) PT Problem 1 PT Problem #1 Knowledge Deficit PT Goal 1 Goal / Goal Update Pt. will be independent with a HEP addressing strength and mobility. Target Visit 2 Progress Met PT Problem 2 PT Problem #2 Impaired Balance PT Goal 1 Goal / Goal Update Pt. will improve her tinetti score to 19 or greater indicating lower fall risk Target Visit 12 Progress Not Met PT Goal 2 Goal / Goal Update continue Target Visit 20 PT Problem 3 PT Problem #3 Impaired Gait PT Goal 1 Goal / Goal Update Pt. will complete the 6 minute walk test for a distance of 750' or greater with use of cane or no AD demonstrating improve gait efficiency Target Visit 12 Progress Not Met PT Goal 2 Goal / Goal Update continue Target Visit 20 PT Problem 4 PT Problem #4 Impaired Strength PT Goal 1 Goal / Goal Update Pt. will present with 4+/5 gross right l.e. strength Pt. will be able to complete 5-10 sit to stand without u.e. support indicating improved functional strength Target Visit 12 Progress Not Met PT Goal 2 Goal / Goal Update continue Target Visit 20
--- NOTE | 2024-01-11 12:09 | PTOPPROG ---
Assessment and note entered by Gina Chandler, PT Evaluation Information Assessment Status Progress Diagnosis closed displaced fracture of the right femoral neck ICD-10 Condition Codes (PT) R26.9,Weakness R53.1 Other ICD-10 Condition Codes ( R26.9, R53.1 PT) Onset 11/03/23 Subjective Information Andreina Dinh reports that she has improved since initiating PT and can move around easier. She does still get pain in her right knee and feels her right knee is weak. She utilizes a rollator walker for ambulation and when she tries to go without it, she feels off balance. She denies falls. She is able to take stairs one at a time and she uses two handrails. Assessment PT Clinical Summary Andreina Dinh has completed 10 skilled PT visits for weakness and difficulty walking following a closed displaced fracture of the right femoral neck. She is reporting she has improved since initiating PT but she still gets pain in her right knee and feels her right knee is still weak. She has not fallen but uses her rollator walker at all times. She is still taking stairs one at a time. She objectively demonstrates improved LE strength, improved balance, and improved gait however, she continues to have functional right knee and hip weakness, decreased dynamic balance, and altered gait. She is a high fall risk per the Tinetti Balance test. She will continue to benefit from skilled PT to address these limitations. Plan of Care Interventions Gait Training,Neuro Re-education,Patient/Caregiver Educati,Therapeutic Activities,Therapeutic Exercise PT Services Indicated Yes Treatment Frequency and Continue 2 times a week for 10 visits Duration These treatments will address the objective and functional deficits as defined above. The patient will be advanced safely and appropriately in order for the patient to progress towards his/her prior level of function. Additional exercises will be introduced and as well as a comprehensive home exercise program upon discharge, if needed, ?to ensure carryover of functional gains achieved in the clinic. This treatment plan has been reviewed and agreement upon by the patient.
--- NOTE | 2024-02-20 14:48 | PCPTNOTE ---
Pt BP taken due to patient complaints of shortness of breath and dizziness with exertion. 77/43 pulse 44. Pt taken to ER
--- NOTE | 2024-02-29 12:17 | OPREHPOC ---
Outpatient Therapy Plan of Care This is a Multidisciplinary Plan of Care that may contain components documented by all disciplines (PT, OT, and ST.) PT Problem 1 PT Problem #1 Knowledge Deficit PT Goal 1 Goal / Goal Update Pt. will be independent with a HEP addressing strength and mobility. Target Visit 2 Progress Met PT Problem 2 PT Problem #2 Impaired Balance PT Goal 1 Goal / Goal Update Pt. will improve her tinetti score to 19 or greater indicating lower fall risk Target Visit 12 Progress Not Met PT Goal 2 Goal / Goal Update continue Target Visit 20 Progress Met PT Problem 3 PT Problem #3 Impaired Gait PT Goal 1 Goal / Goal Update Pt. will complete the 6 minute walk test for a distance of 750' or greater with use of cane or no AD demonstrating improve gait efficiency Target Visit 12 Progress Not Met PT Goal 2 Goal / Goal Update continue Target Visit 20 Progress Not Met PT Problem 4 PT Problem #4 Impaired Strength PT Goal 1 Goal / Goal Update Pt. will present with 4+/5 gross right l.e. strength Pt. will be able to complete 5-10 sit to stand without u.e. support indicating improved functional strength Target Visit 12 Progress Not Met PT Goal 2 Goal / Goal Update continue Target Visit 20 Progress Partially Met
--- NOTE | 2024-02-29 12:17 | PTOPDC ---
Assessment and note entered by Gina Chandler, PT Evaluation Information Assessment Status Discharge Diagnosis closed displaced fracture of the right femoral neck ICD-10 Condition Codes (PT) Abnormalities of gait and mobility R26.9,Weakness R53.1 Other ICD-10 Condition Codes ( R26.9, R53.1 PT) Onset 11/03/23 Subjective Information Andreina Dinh reports her right hip is doing well. She is not having very much pain in the hip but does have right knee pain. She is able to get around her home easily and has started cooking a little as well. Her is still doing most of the cleaning though. She feels her balance is doing well and she has not had any falls. Reported Pain Level Pain Score 7,0: Self Report Pain Score 8,2: Self Report Assessment PT Clinical Summary Andreina Dinh has completed 20 skilled PT visits following a closed displaced fracture of the right femoral neck. She is reporting minimal pain in the right hip but has been having right knee pain. She is getting around her home without difficulty and has been able to start cooking more recently. She reports her does most of the cleaning right now. She demonstrates improved hip and knee strength, improved gait, and improved balance. She has met 4/5 goals and will be discharged to an independent [facility]. Plan of Care PT Services Indicated No
== END 2024-02-29 13:03 | disposition home or self-care (01) ==
LOC: CHSPT 09:51
DX: S72.001A Fracture of unspecified part of neck of right femur, initial encounter for closed fracture (principal); R26.9 Unspecified abnormalities of gait and mobility; R53.1 Weakness
CPT/HCPCS: 97110; 97112; 97116; 97161; 97530; 97750

== ENCOUNTER 2024-02-20 11:37 | Emergency (ER) | payer MEDICARE, SELFPAY ==
[2024-02-20] VITALS (24 sets, daily range): BP systolic 95–130; BP diastolic 64–89; PULSE 82–106; RESP 12–23; TEMP 36.6; O2SAT 98–100
--- NOTE | ~2024-02-20 | CT_ITS ---
Clinical Indication: Shortness of breath CT Scan of the Chest with Contrast: Technique: Contiguous sections were acquired throughout the chest after intravenous administration of 100 cc of Omnipaque 350. Dose reduction technique was used on this scan by utilizing automated expos ure control and iterative reconstruction technique. The dose-length product (DLP) was 142.44 mGy-cm. COMPARISON: 05/12/2022 Findings: There is no evidence of any significant mediastinal, hilar or axillary lymphadenopathy. There is no f illing defect in the pulmonary arterial tree to suggest pulmonary embolus. There is no evidence of ao rtic dissection or aneurysm. Marked, diffuse esophageal dilatation is unchanged from prior exam.. There is no evidence of pleural or pericardial effusion. There is linear bibasilar scarring or atelectasis. Calcified right lower lobe granulomas are present. Images through the upper abdomen reveal no abnormalities. Compression fractures of T10 and T11 are no sol. Impression: No evidence of pulmonary embolus, aortic dissection, or aortic aneurysm. Linear bibasilar scarring or atelectasis. Marked, diffuse esophageal dilatation is unchanged. T10 compression fracture, new since 05/12/2022, but age-indeterminate overall. Stable T11 compression fracture. Reviewed, dictated and finalized at location . [employer] Impression: No evidence of pulmonary embolus, aortic dissection, or aortic aneurysm. Linear bibasilar scarring or atelectasis. Marked, diffuse esophageal dilatation is unchanged. T10 compression fracture, new since 05/12/2022, but age-indeterminate overall. S table T11 compression fracture.
--- NOTE | 2024-02-20 11:56 | ED_ITS ---
HPI - General Adult General Chief complaint: Dizziness Stated complaint: dizziness and sob Time Seen by Provider: 02/20/24 11:56 Source: patient and family Mode of arrival: ambulatory Limitations: no limitations History of Present Illness HPI narrative: 78-year-old white femalecomplaint of dizziness this morning she was in physical therapy for status post hip surgery complains of dizziness orthostatic hypotension shortness of breath. Patient had her right hip surgery done in October she says she has been short of breath since then and now she is short of breath to the point where she gets short of breath just walking across the room. She has dizziness as well of feeling like she is going to pass out for the last 2-4 weeks. She has not discussed this with any of her physicians or primary care providers. Denies any pain. Occasionally she will have some right hip pain and right arthritis knee pain but she is having no pain now. She says she does not drink a whole lot but otherwise her eating and drinking have not changed. She denies any nausea vomiting diarrhea bleeding or bruising black stools swelling lumps or bumps rash or itching. She feels generally weak fatigued and tired and has dyspnea on exertion she has no shortness of breath at rest her setting. Denies any cough. patient does admit to being short of breath since her ortho pubic surgery of her right hip in October. She admits to being short of breath just walking across the room for several weeks. She has not discussed this with her physicians however. Past medical history hypotension GERD hyperlipidemia Primary biliary cirrhosis,CHF atrial fib on Eliquis she has had gastric bypass surgery. Related Data Home Medications ?Medication ?Instructions ?Recorded ?Confirmed ?Last Taken ?Type pravastatin 20 mg tablet 10 mg PO DAILY 05/04/21 11/12/23 11/12/23 History omeprazole 40 mg capsule,delayed 40 mg PO DAILY 05/12/22 11/12/23 11/12/23 History release ursodiol 500 mg tablet 500 mg PO BID 05/12/22 11/12/23 11/12/23 History lactulose 10 gram/15 mL oral 20 ml PO TID 12/06/22 11/12/23 11/12/23 History solution rifaximin 200 mg tablet (Xifaxan) 550 mg PO BID 10/20/23 11/12/23 11/12/23 History acetaminophen 650 tablet PO Q6H PRN Pain 11/12/23 11/12/23 11/12/23 History Allergies Allergy/AdvReac Type Severity Reaction Status Date / Time Sulfa (Sulfonamide Allergy Hives Verified 12/06/22 14:07 Antibiotics) Review of Systems 2 Review of Systems: All systems reviewed & are unremarkable except as noted in HPI and below PMFSH Past Medical History Medical History Afib CHF (congestive heart failure) Esophagitis GERD (gastroesophageal reflux disease) Hyperlipidemia Hypotension Social History Social History Smoking status: Never smoker Alcohol intake: never Substance use: never Do You Feel Safe in your Home?: Yes Lack of Transportation: No Lack of Food: Never True Current Housing: I Have Housing Concerned About Future Housing: No Difficulty Paying Gas/Electric Bills: No Difficulty Paying for Meds: No Currently Unemployed: No Education: Bachelor's Degree Difficulty w/ Childcare or Family Care: No Spiritual care concerns: No Exam 2 Narrative: White female patient with no apparent distress.? Head normocephalic, atraumatic.? Eyes conjunctiva pink sclera nonicteric.? Extraocular movements are intact.? Ears externally normal.? TMs are normal. ?Oropharynx is clear with moist mucous membranes without exudates.? Neck is supple nontender no lymphadenopathy.? Back is nontender.? Lungs are clear.? Heart is regular rate and irregularly irregular rhythm without murmurs gallops or rubs.? Chest wall nontender. Abdomen is soft and nontender no hepatosplenomegaly or masses no CVA tenderness no abdominal bruits.? Extremities no cyanosis clubbing or edema.? Skin is warm and dry without rashes or lesions.? Neurological patient is alert and oriented x4.? Motor and sensory grossly intact.? Gait is normal. Course Vital Signs Vital signs: Vital Signs Pulse Rate 99 02/20/24 11:59 Respiratory Rate 16 02/20/24 11:59 Pulse Oximetry 99 02/20/24 11:59 Oxygen Delivery Room Air 02/20/24 11:59 Temperature 36.6 C 02/20/24 12:03 Pulse Rate 99 02/20/24 16:00 Respiratory Rate 17 02/20/24 16:00 Blood Pressure 130/82 02/20/24 16:01 Pulse Oximetry 99 02/20/24 16:01 Oxygen Delivery Room Air 02/20/24 16:01 Medical Decision Making MDM Narrative Medical decision making narrative: ?Patient placed in room: 7 with her ? History and physical was performed. CT PE study:No PE Compression fractures T10 new since April of 2022 but age- indeterminate overall and stable chronic T11 compression ? Hematocrit 34.1 rest of CBC was normal,, D-dimer was 6.99.? Coags were normal BUN is 29 creatinine 1.64 GFR is 30 in October BUN creatinine was 271.7 and GFR was 40.? Calcium 10.6, total bilirubin 1.1 AST 38 alk-phos 233 albumin 2.2 the rest of CMP was normal. Lactic acid normal at 1.7 and magnesium was normal at 1.8 COVID flu and RSV was negative Independent Historian: External Source Review: Differential Dx includes but not limited to: PE pneumonia electrolyte imbalance anemia acute coronary syndrome Medications were Reviewed: home meds reviewed, patient is on Eliquis Medications given: normal saline 1 L Independently Interpreted by me: EKG shows atrial fib with nonspecific ST T-wave abnormalities at a rate of 94 impression abnormal EKG is independently interpreted by me. Shared decision Making: Evaluation was discussed all questions were asked and answered patient agreed with plan. Social Situation Impacting Patients Care: Right hip surgery in October Discussed with Dr. LIU DIAGNOSIS: dyspnea Congestive heart failure on exertion orthostatic hypotension volume depletion AFib with controlled rate Age-indeterminate T10 compression fracture, old T11 compression fracture DISPOSITION : discharge home CONDITION AT DISCHARGE: stable ambulated well at discharge Vital Signs Vital Signs: Vital Signs Pulse Rate 99 02/20/24 11:59 Respiratory Rate 16 02/20/24 11:59 Pulse Oximetry 99 02/20/24 11:59 Oxygen Delivery Room Air 02/20/24 11:59 Temperature 36.6 C 02/20/24 12:03 Pulse Rate 99 02/20/24 16:00 Respiratory Rate 17 02/20/24 16:00 Blood Pressure 130/82 02/20/24 16:01 Pulse Oximetry 99 02/20/24 16:01 Oxygen Delivery Room Air 02/20/24 16:01 Lab Data 02/20/24 12:27 02/20/24 12:26 Labs: Lab Results 02/20/24 02/20/24 02/20/24 Range/Units 12:17 12:26 12:27 WBC 6.7 (4.8-10.8) K/mm3 RBC 3.71 L (4.20-5.40) M/mm3 Hgb 11.9 (11.7-13.8) g/dL Hct 34.1 L (35.0-42.0) % MCV 91.9 (78.0-102.0) fL MCH 32.1 H (27.0-31.0) pg MCHC 34.9 (32-36) g/dL RDW 17.7 H (11.6-14.4) % Plt Count 215 (150-420) K/mm3 MPV 12.8 H (9.2-11.8) fl PT 10.9 (9.64-11.0) Seconds INR 1.0 APTT 27.6 (23.9-30.70) Sec D-Dimer 6.99 H* Cancelled (0.19-0.50) mg/L Sodium 139 (136-145) mmol/L Potassium 5.1 (3.5-5.1) mmol/L Chloride 107 (98-108) mmol/L Carbon Dioxide 24 (21-32) mmol/L Anion Gap 8 (4-12) mmol/L BUN 29 H (7-18) mg/dL Creatinine 1.64 H (0.55-1.02) mg/dL Estim Creat Clear Calc 21 ml/min Estimated GFR 30 L (59 - ) Glucose 119 H (70-99) mg/dL Calculated Osmolality 294 (285-295) mOsm/kg Lactic Acid 1.7 (0.4-2.0) mmol/L Calcium 10.6 H (8.5-10.1) mg/dL Magnesium 1.8 (1.8-2.4) mg/dL Total Bilirubin 1.1 H (0.00-1.00) mg/dL AST 38 H (15-37) U/L ALT 25 (14-59) U/L Alkaline Phosphatase 233 H (46-116) U/L Troponin I 15.1 (0.00-60.4) ng/L NT-Pro-B Natriuret Pep 1241 H (0-450) pg/mL Total Protein 7.7 (6.4-8.2) g/dL Albumin 2.2 L (3.4-5.0) g/dL Influenza A (RT-PCR) Negative (Negative) Influenza B (RT-PCR) Negative (Negative) RSV (RT-PCR) Negative (Negative) SARS-CoV-2 RNA (RT-PCR) Negative (Negative) Discharge Plan Discharge Clinical Impression: Volume depletion, Dizziness Afib Qualifiers: Atrial fibrillation type: unspecified chronic Qualified Code(s): I48.20 - Chronic atrial fibrillation, unspecified CKD (chronic kidney disease) Qualifiers: Chronic kidney disease stage: unspecified stage Qualified Code(s): N18.9 - Chronic kidney disease, unspecified Congestive heart failure Qualifiers: Heart failure type: unspecified Heart failure chronicity: chronic Qualified Code(s): I50.9 - Heart failure, unspecified Patient Disposition: Home, Self-Care Condition: Stable Instructions: Heart Failure (ED), Dehydration (ED), Dizziness (ED) Additional Instructions: follow-up with your primary care provider and 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 Return if you get worse or develops any new symptoms. Continue her same medications. Patient Language: Japanese Prescriptions: No Action pravastatin 20 mg Tablet 10 mg PO DAILY lactulose 10 gram/15 mL solution 20 ml PO TID omeprazole 40 mg capsule,delayed release(DR/EC) 40 mg PO DAILY ursodiol 500 mg tablet 500 mg PO BID Xifaxan 200 mg Tablet 550 mg PO BID acetaminophen 650 tablet PO Q6H PRN (Reason: Pain) oxycodone 5 mg Tablet 5 mg PO Q8H PRN (Reason: Pain Rated 7-10) Qty: 20 0RF pantoprazole 40 mg Tablet,Delayed Release (Dr/Ec) 40 mg PO DAILY Qty: 30 0RF docusate sodium 100 mg Capsule 100 mg PO BID PRN (Reason: Constipation) Qty: 60 0RF calcium carbonate 500 mg calcium (1,250 mg) Tablet,Chewable 200 mg PO Q2H PRN (Reason: Indigestion) Qty: 90 0RF ferrous sulfate 325 mg (65 mg iron) Tablet,Delayed Release (Dr/Ec) 325 mg PO DAILY Qty: 30 0RF cholecalciferol (vitamin D3) 125 mcg (5,000 unit) Tablet 5,000 unit PO DAILY Qty: 30 0RF multivitamin with folic acid [Thera] 400 mcg Tablet 1 tablet PO QAM Qty: 30 0RF methocarbamol 500 mg Tablet 1,000 mg PO TID Qty: 90 0RF lidocaine [Blue-Emu Lidocaine Patch] 4 % Adhesive Patch,Medicated 2 patch TOPICAL DAILY Qty: 30 0RF polyethylene glycol 3350 17 gram Powder In Packet 17 g PO DAILY Qty: 30 0RF spironolactone 25 mg Tablet 50 mg PO DAILY Qty: 30 0RF midodrine 2.5 mg tablet 2.5 mg PO TID Qty: 90 0RF Eliquis 5 mg Tablet 5 mg PO BID Qty: 60 0RF Follow-up/Referrals: Denis Hansen MD [Primary Care Provider] - Time of Disposition: 17:01
--- NOTE | 2024-02-20 12:01 | ECG_ITS ---
Test Date: 2024-02-20 12:20:20 Measurements Intervals [place] Rate: 94 P: 0 VT: 0 QRS: 43 QRSD: 96 T: -55 QT: 354 QTc: 443 Interpretive Statements ATRIAL FIBRILLATION NONSPECIFIC ST & T-WAVE ABNORMALITY No previous ECG available for comparison Electronically Signed On 02-20-2024 22:43:53 [employer] by Katelynn Jimenez M.D.
[2024-02-20] MEDS: SODIUM CHLORIDE 0.9% IV 1,000 ML 999 ML IV CONT (12:26)
[2024-02-20 12:50] LABS: Alanine Aminotransferase 25 U/L (14-59); Albumin Level 2.2 g/dL (3.4-5.0); Alkaline Phosphatase 233 U/L (46-116); Anion Gap 8 mmol/L (4-12); Aspartate Amino Transferase 38 U/L (15-37); Bilirubin,Total 1.1 mg/dL (0.00-1.00); Blood Urea Nitrogen 29 mg/dL (7-18); Calcium 10.6 mg/dL (8.5-10.1); Carbon Dioxide 24 mmol/L (21-32); Chloride 107 mmol/L (98-108); Estimated CRCL calculation 21 ml/min; Estimated Glomerular Filt Rate 30; Glucose 119 mg/dL (70-99); Osmolality Calculated 294 mOsm/kg (285-295); Potassium 5.1 mmol/L (3.5-5.1); Sodium 139 mmol/L (136-145); Total Protein 7.7 g/dL (6.4-8.2)
[2024-02-20 12:56] LABS: Lactic Acid Reflex 1.7 mmol/L (0.4-2.0)
[2024-02-20 12:57] LABS: Hematocrit 34.1 % (35.0-42.0); Hemoglobin 11.9 g/dL (11.7-13.8); Mean Corpuscular HGB Conc 34.9 g/dL (32-36); Mean Corpuscular Hemoglobin 32.1 pg (27.0-31.0); Mean Corpuscular Volume 91.9 fL (78.0-102.0); Mean Platelet Volume 12.8 fl (9.2-11.8); Platelet Count Result 215 K/mm3 (150-420); Red Blood Count 3.71 M/mm3 (4.20-5.40); Red Cell Distribution Width 17.7 % (11.6-14.4); White Blood Count 6.7 K/mm3 (4.8-10.8)
[2024-02-20 13:10] LABS: SARS-CoV-2 RNA PCR Negative (Negative)
[2024-02-20 13:10] LABS: Partial Thromboplastin Time 27.6 Sec (23.9-30.70); Prothrombin Time 10.9 Seconds (9.64-11.0)
[2024-02-20 13:11] LABS: Influenza A QL RT-PCR Negative (Negative); Influenza B QL RT-PCR Negative (Negative); RSV RNA, RT-PCR Negative (Negative)
[2024-02-20 13:27] LABS: Magnesium 1.8 mg/dL (1.8-2.4)
[2024-02-20 13:33] LABS: D Dimer 6.99 mg/L (0.19-0.50)
[2024-02-20 15:04] LABS: Troponin I 15.1 ng/L (0.00-60.4)
[2024-02-20 15:07] LABS: NT Pro B Type Natriuretic Pept 1241 pg/mL (0-450)
--- NOTE | 2024-02-20 16:36 | PC.NURSE ---
1620 PT TAKEN ON A WALK WITH WALKER PT SACHI WELL
== END 2024-02-20 17:05 | disposition home or self-care (01) ==
PROVIDERS: Emergency Provider Emergency Medicine; PCP Internal Medicine
DX: I13.0 Hypertensive heart and chronic kidney disease with heart failure and stage 1 through stage 4 chronic kidney disease, or unspecified chronic kidney disease (principal); I50.9 Heart failure, unspecified; I48.91 Unspecified atrial fibrillation; N18.9 Chronic kidney disease, unspecified; I95.1 Orthostatic hypotension; E86.9 Volume depletion, unspecified; M48.54XA Collapsed vertebra, not elsewhere classified, thoracic region, initial encounter for fracture; R06.00 Dyspnea, unspecified; K74.3 Primary biliary cirrhosis; E78.5 Hyperlipidemia, unspecified; K21.9 Gastro-esophageal reflux disease without esophagitis; Z79.01 Long term (current) use of anticoagulants; Z98.84 Bariatric surgery status; Z20.822 Contact with and (suspected) exposure to COVID-19
CPT/HCPCS: 36415; 71275; 80053; 83605; 83735; 83880; 84484; 85027; 85380; 85610; 85730; 87637; 93005; 96360; 99284; J7030; Q9967

== ENCOUNTER 2024-03-26 12:53 | Outpatient (RCR) | payer MEDICARE, SELFPAY ==
--- NOTE | 2024-03-26 15:09 | PTOPEVAL1 ---
Assessment and note entered by Carol Kerr DPT Evaluation Information Assessment Status Evaluation Diagnosis R hip weakness Other ICD-10 Condition Codes ( S72.001A PT) Onset 03/19/24 Subjective Information Patient underwent R hemiarthroplasty in October of 2023. She reports she has not had PT since January 2024. She reports she is limited at times due to shortness of breath. She reports she is not walking straight. She reports she is using a rollator at all times. She reports difficulty with putting on socks and shoes and picking up objects off the floor. She reports her surgeon recommended that she continue PT to strengthen. She reports she does not have to return to surgeon unless she has any issues. Reported Pain Level Pain Score 0: Self Report Assessment PT Clinical Summary Mrs. Dinh is a 79 year old female who presents to PT with R hip weakness following R hip hemiarthroplasty. Patient demonstrates decreased B hip strength, impaired gait mechanics and impaired balance. She has difficulty with completing house hold tasks, putting on her socks and shoes, and picking up objects from the ground. Patient would benefit from skilled PT to address impairments and return to PLOF. Plan of Care Interventions Electrical Stimulation,Gait Training,Hot Pack/Cold Pack,Manual Therapy,Neuro Re-education,Patient/ Caregiver Education,Therapeutic Activities, Therapeutic Exercise PT Services Indicated Yes Treatment Frequency and 2x weekly for 12 visits Duration These treatments will address the objective and functional deficits as defined above. The patient will be advanced safely and appropriately in order for the patient to progress towards his/her prior level of function. Additional exercises will be introduced and as well as a comprehensive home exercise program upon discharge, if needed, ?to ensure carryover of functional gains achieved in the clinic. This treatment plan has been reviewed and agreement upon by the patient.
--- NOTE | 2024-04-23 12:01 | OPREHPOC ---
Outpatient Therapy Plan of Care This is a Multidisciplinary Plan of Care that may contain components documented by all disciplines (PT, OT, and ST.) PT Problem 1 PT Problem #1 Knowledge Deficit PT Goal 1 Goal / Goal Update Patient to demonstrate independence with HEP Target Visit 6 Progress Met PT Problem 2 PT Problem #2 Pain PT Goal 1 Goal / Goal Update patient to report highest pain at 2/10 Target Visit 12 Progress Partially Met PT Goal 2 Goal / Goal Update continue PT Problem 3 PT Problem #3 Impaired Strength PT Goal 1 Goal / Goal Update patient to demonstrate 4+/5 B hip strength to return to prolonged ambulation without limp Target Visit 12 Progress Not Met PT Goal 2 Goal / Goal Update continue PT Problem 4 PT Problem #4 Impaired Functional Mobility PT Goal 1 Goal / Goal Update 1. patient to improve LEFS by 20% 2. patient to report ability to don socks and shoes on R LE at PLOF 3. patient to demonstrate ability to tow picker objects off of floor Target Visit 12 Progress Partially Met PT Goal 2 Goal / Goal Update continue
--- NOTE | 2024-04-23 12:02 | PTOPPROG ---
Assessment and note entered by Gina Chandler, PT Evaluation Information Assessment Status Progress Diagnosis R hip weakness Other ICD-10 Condition Codes ( S72.001A PT) Onset 03/19/24 Subjective Information Renee reports her right hip is getting stronger and not having as much pain. She does still have constant right knee pain though and feels it holds her back more than the hip. She saw an orthopedically impaired teacher for her right knee last week and had a cortisone injection. She reports the injection has not helped her pain. She was also ordered PT for her right knee and the patient wants to finish PT on her hip then start PT for her knee. She notes she is getting around the house with a cane or by holding furniture and pierre but she still uses her rollator walker when she goes out. Assessment PT Clinical Summary Andreina Dinh has completed 9 skilled PT visits for her right hip. She is reporting decreasing pain levels in the hip however, she has had increased pain in the right knee. She still uses a rollator walker for ambulation outside the home and a single point cane or furniture to get around in the home. She demonstrates improved strength and endurance however she continues to have deficits in strength, balance, gait, and endurance. She will benefit from continued PT to further address these limitations. Plan of Care Interventions Manual Therapy,Neuro Re-education,Patient/ Caregiver Education,Therapeutic Activities, Therapeutic Exercise PT Services Indicated Yes Treatment Frequency and Continue per original POC for 3 additional visits Duration These treatments will address the objective and functional deficits as defined above. The patient will be advanced safely and appropriately in order for the patient to progress towards his/her prior level of function. Additional exercises will be introduced and as well as a comprehensive home exercise program upon discharge, if needed, ?to ensure carryover of functional gains achieved in the clinic. This treatment plan has been reviewed and agreement upon by the patient.
--- NOTE | 2024-05-02 11:53 | OPREHPOC ---
Outpatient Therapy Plan of Care This is a Multidisciplinary Plan of Care that may contain components documented by all disciplines (PT, OT, and ST.) PT Problem 1 PT Problem #1 Knowledge Deficit PT Goal 1 Goal / Goal Update Patient to demonstrate independence with HEP Target Visit 6 Progress Met PT Problem 2 PT Problem #2 Pain PT Goal 1 Goal / Goal Update patient to report highest pain at 2/10 Target Visit 12 Progress Met PT Goal 2 Goal / Goal Update continue PT Problem 3 PT Problem #3 Impaired Strength PT Goal 1 Goal / Goal Update patient to demonstrate 4+/5 B hip strength to return to prolonged ambulation without limp Target Visit 12 Progress Partially Met PT Goal 2 Goal / Goal Update continue PT Problem 4 PT Problem #4 Impaired Functional Mobility PT Goal 1 Goal / Goal Update 1. patient to improve LEFS by 20% -not met 2. patient to report ability to don socks and shoes on R LE at PLOF -met 3. patient to demonstrate ability to tow picker objects off of floor -not met Target Visit 12 Progress Partially Met PT Goal 2 Goal / Goal Update continue
--- NOTE | 2024-05-02 11:53 | PTOPDC ---
Assessment and note entered by Gina Chandler, PT Evaluation Information Assessment Status Discharge Diagnosis R hip weakness Other ICD-10 Condition Codes ( S72.001A PT) Onset 03/19/24 Subjective Information Renee reports her right hip has been doing well and she is not having pain in it any longer. She also notes her balance is improving and she uses a cane or no AD in her home. She still uses a walker when she goes out in public. She has been having pain in her right knee that has caused more deficits than her hip. She had an injection in her knee 2 weeks ago and that has helped decrease the knee pain as well. Reported Pain Level Pain Score 0,2: Self Report Assessment PT Clinical Summary Andreina Dinh has completed 12 skilled PT visits for her right hip. She is reporting decreasing pain levels in the hip and knee. She feels her balance is improving as well but she is still using AD for ambulation and she still feels weak. She continues to have difficulty picking items up off the floor. She demonstrates improved strength, balance, and endurance however she continues to have deficits in strength, balance, gait, and endurance. She will be discharged for her right hip and plans to initiate PT for her right knee. Plan of Care PT Services Indicated No
== END 2024-05-02 13:10 | disposition home or self-care (01) ==
LOC: CHSPT 12:53
DX: S72.001A Fracture of unspecified part of neck of right femur, initial encounter for closed fracture (principal)
CPT/HCPCS: 97110; 97112; 97116; 97161; 97530; 97750

== ENCOUNTER 2024-05-07 10:50 | Outpatient (RCR) | payer MEDICARE, SELFPAY ==
--- NOTE | 2024-05-07 11:58 | OPREHPOC ---
Outpatient Therapy Plan of Care This is a Multidisciplinary Plan of Care that may contain components documented by all disciplines (PT, OT, and ST.) PT Problem 1 PT Problem #1 Knowledge Deficit PT Goal 1 Goal / Goal Update The patient will be independent in a home exercise program. Target Visit 4 PT Problem 2 PT Problem #2 Pain PT Goal 1 Goal / Goal Update The patient will report no greater than 3/10 right knee pain with sit to stand transfers and stair negotiation. Target Visit 10 PT Problem 3 PT Problem #3 Impaired Strength PT Goal 1 Goal / Goal Update The patient will demonstrate 4/5 right knee and hip strength. Target Visit 10 PT Problem 4 PT Problem #4 Impaired Endurance PT Goal 1 Goal / Goal Update The patient will ambulate with the least restrictive AD a distance of 600 feet or more with independence during the 6 minute walk test to improve community ambulation. Target Visit 10 PT Problem 5 PT Problem #5 Impaired Functional Mobility PT Goal 1 Goal / Goal Update The patient will demonstrate 40% or less self perceived disability per the LEFS questionnaire. Target Visit 10
--- NOTE | 2024-05-07 11:58 | PTOPEVAL1 ---
Assessment and note entered by Gina Chandler, PT Evaluation Information Assessment Status Evaluation ICD-10 Condition Codes (PT) Pain in right knee M25.561 Other ICD-10 Condition Codes ( M17.11 PT) Onset 04/16/24 Subjective Information Andreina Dinh reports she has osteoarthritis in her right knee. She was planning to have a knee replacement however, she had a fall and broke her right hip and had to have surgery in October 2023. She has been participating in PT for her hip and recently her knee has been more painful and more of a problem than her hip. She notes pain with prolonged sitting, sit to stand transfers, and stairs. She continues to use a cane for ambulation and occasionally a rollator. She recently had an injection in her knee that helped decrease the pain and now she notes achiness in the right knee. Reported Pain Level Pain Score 4: Self Report Assessment PT Clinical Summary Andreina Dinh presents with right knee pain and has been diagnosed with osteoarthritis. She sustained a right femur fracture in October 2023 that required surgical stabilization. She has been having increased right knee pain recently and feels limitations with sit to stand transfers, stairs, and prolonged sitting. She demonstrates decreased right knee and hip strength, altered gait, decreased balance, and tenderness at the left medial knee joint line. She will benefit from skilled PT to address these limitations. Plan of Care Interventions Electrical Stimulation,Gait Training,Hot Pack/Cold Pack,Manual Therapy,Neuro Re-education,Patient/ Caregiver Education,Therapeutic Activities, Therapeutic Exercise PT Services Indicated Yes Treatment Frequency and 2 times a week for 10 visits Duration These treatments will address the objective and functional deficits as defined above. The patient will be advanced safely and appropriately in order for the patient to progress towards his/her prior level of function. Additional exercises will be introduced and as well as a comprehensive home exercise program upon discharge, if needed, ?to ensure carryover of functional gains achieved in the clinic. This treatment plan has been reviewed and agreement upon by the patient.
--- NOTE | 2024-06-20 10:10 | PTOPDC ---
Assessment and note entered by Gina Chandler, PT Evaluation Information Assessment Status Discharge - Pt Not Present ICD-10 Condition Codes (PT) Pain in right knee M25.561 Other ICD-10 Condition Codes ( M17.11 PT) Onset 04/16/24 Subjective Information Andreina Dinh called to report she fell and broke her patella so she will not be in PT for awhile. Assessment PT Clinical Summary Andreina Dinh completed 4 skilled PT visits for right knee pain. She called to report she fell and fractured her patella so she will not be attending PT for awhile. She is discharged. Plan of Care PT Services Indicated No
== END 2024-05-16 20:00 | disposition home or self-care (01) ==
LOC: CHSPT 10:50
DX: M17.11 Unilateral primary osteoarthritis, right knee (principal)
CPT/HCPCS: 97014; 97110; 97161; 97530; G0283

== ENCOUNTER 2024-07-03 13:43 | Outpatient (RCR) | payer MEDICARE, SELFPAY ==
--- NOTE | 2024-07-03 15:39 | OPREHPOC ---
Outpatient Therapy Plan of Care This is a Multidisciplinary Plan of Care that may contain components documented by all disciplines (PT, OT, and ST.) PT Problem 1 PT Problem #1 Knowledge Deficit PT Goal 1 Goal / Goal Update The patient will be independent in a home exercise program. Target Visit 4 PT Problem 2 PT Problem #2 Pain PT Goal 1 Goal / Goal Update The patient will report no greater than 3/10 right knee pain with walking 500 feet. Target Visit 10 PT Problem 3 PT Problem #3 Impaired Range of Motion PT Goal 1 Goal / Goal Update The patient will demonstrate 0-120 degrees right knee AROM to improve gait and stair navigation. Target Visit 10 PT Problem 4 PT Problem #4 Impaired Strength PT Goal 1 Goal / Goal Update The patient will demonstrate 4/5 or greater strength in the right hip and knee to improve gait and functional mobility. Target Visit 10
--- NOTE | 2024-07-03 15:40 | PTOPEVAL1 ---
Assessment and note entered by Gina Chandler, PT Evaluation Information Assessment Status Evaluation Diagnosis s/p R patella fracture ICD-10 Condition Codes (PT) Pain in right knee M25.561 Other ICD-10 Condition Codes ( S82.001A PT) Onset 05/18/24 Subjective Information Renee Dinh reports she caught her foot or cane when walking on a sidewalk on 05/18/24 and she fell forward onto both knees. She fractured her right patella and was put in a knee brace locked in extension for the first 6 weeks. She went to the physician about 10 days ago and her braced was opened to allow 45 degrees of movement. She is now able to move around a little better but still has difficulty walking, getting in and out of chairs, and standing for more than 10 minutes. She is using a rollator walker for mobility as well. She reports a lot of her pain has improved the last 2 weeks. Reported Pain Level Pain Score 2: Self Report Assessment PT Clinical Summary Andreina Dinh presents 6.5 weeks s/p right patella fracture. She presents in a hinged knee brace that allows 45 degrees of knee flexion. She has difficulty with walking, standing more than 10 minutes, stairs, and getting in/out of chairs and vehicles. She objectively demonstrates decreased right knee flexion passive and active ROM, slightly decreased right knee extension ROM, impaired gait, impaired balance, and decreased right LE strength. She will benefit from skilled PT to address these limitations. Plan of Care Interventions Electrical Stimulation,Gait Training,Hot Pack/Cold Pack,Manual Therapy,Neuro Re-education,Patient/ Caregiver Education,Therapeutic Activities, Therapeutic Exercise PT Services Indicated Yes Treatment Frequency and 2 times a week for 10 visits Duration These treatments will address the objective and functional deficits as defined above. The patient will be advanced safely and appropriately in order for the patient to progress towards his/her prior level of function. Additional exercises will be introduced and as well as a comprehensive home exercise program upon discharge, if needed, ?to ensure carryover of functional gains achieved in the clinic. This treatment plan has been reviewed and agreement upon by the patient.
--- NOTE | 2024-08-01 14:03 | OPREHPOC ---
Outpatient Therapy Plan of Care This is a Multidisciplinary Plan of Care that may contain components documented by all disciplines (PT, OT, and ST.) PT Problem 1 PT Problem #1 Knowledge Deficit PT Goal 1 Goal / Goal Update The patient will be independent in a home exercise program. Target Visit 4 Progress Met PT Problem 2 PT Problem #2 Pain PT Goal 1 Goal / Goal Update The patient will report no greater than 3/10 right knee pain with walking 500 feet. Target Visit 10 Progress Met PT Problem 3 PT Problem #3 Impaired Range of Motion PT Goal 1 Goal / Goal Update The patient will demonstrate 0-120 degrees right knee AROM to improve gait and stair navigation. Target Visit 10 Progress Not Met PT Problem 4 PT Problem #4 Impaired Strength PT Goal 1 Goal / Goal Update The patient will demonstrate 4/5 or greater strength in the right hip and knee to improve gait and functional mobility. Target Visit 10 Progress Not Met
--- NOTE | 2024-08-01 14:03 | PTOPPROG ---
Assessment and note entered by Litzy Dolan, PT Evaluation Information Assessment Status Progress Diagnosis s/p R patella fracture ICD-10 Condition Codes (PT) Pain in right knee M25.561 Other ICD-10 Condition Codes ( S82.001A PT) Onset 05/18/24 Subjective Information Pt reports an improvement in her pain and is able to stand for more than 10 mins. She also notes improved ability to walk but does still have difficulty getting out of a chair as long as there are arm rests to push up from. She does report concern regarding her balance and states she had a fall 2 days ago before her previous PT visit. Assessment PT Clinical Summary Mrs. Dinh has attended 10 skilled PT visits following R patellar fracture on 05/18/24. She continues to slowly progress toward normal R knee flexion ROM per protocol. She demonstrates gross LE weakness with production of R knee pain with resisted knee extension. She also demonstrates gait deficits such as forward lurch and decreased stance time on R leg due to pain and quad weakness . She will benefit from continued skilled PT intervention per protocol to improve deficits and continue progressing toward goals. Plan of Care Interventions Electrical Stimulation,Gait Training,Hot Pack/Cold Pack,Manual Therapy,Neuro Re-education,Patient/ Caregiver Education,Therapeutic Activities, Therapeutic Exercise PT Services Indicated Yes Treatment Frequency and 2x/week for 10 additional visits Duration These treatments will address the objective and functional deficits as defined above. The patient will be advanced safely and appropriately in order for the patient to progress towards his/her prior level of function. Additional exercises will be introduced and as well as a comprehensive home exercise program upon discharge, if needed, ?to ensure carryover of functional gains achieved in the clinic. This treatment plan has been reviewed and agreement upon by the patient.
--- NOTE | 2024-09-03 12:55 | PCPTNOTE ---
Patient called & cancelled scheduled appointment this date due to being in the ER on 09/02/24 evening, pt will try to make it 09/05/24. -Gina Chandler, PT
--- NOTE | 2024-09-10 15:50 | OPREHPOC ---
Outpatient Therapy Plan of Care This is a Multidisciplinary Plan of Care that may contain components documented by all disciplines (PT, OT, and ST.) PT Problem 1 PT Problem #1 Knowledge Deficit PT Goal 1 Goal / Goal Update The patient will be independent in a home exercise program. Target Visit 4 Progress Met PT Problem 2 PT Problem #2 Pain PT Goal 1 Goal / Goal Update The patient will report no greater than 3/10 right knee pain with walking 500 feet. Target Visit 10 Progress Not Met PT Problem 3 PT Problem #3 Impaired Range of Motion PT Goal 1 Goal / Goal Update The patient will demonstrate 0-120 degrees right knee AROM to improve gait and stair navigation. Target Visit 10 Progress Met PT Problem 4 PT Problem #4 Impaired Strength PT Goal 1 Goal / Goal Update The patient will demonstrate 4/5 or greater strength in the right hip and knee to improve gait and functional mobility. Target Visit 10 Progress Not Met
--- NOTE | 2024-09-10 15:50 | PTOPREEVAL ---
Assessment and note entered by JT File, PT Evaluation Information Assessment Status Progress Diagnosis s/p R patella fracture ICD-10 Condition Codes (PT) Pain in right knee M25.561 Other ICD-10 Condition Codes ( S82.001A PT) Onset 05/18/24 Subjective Information patient reports she continues to have pain in the R knee. she reports it crackles and pops. she reports she struggles to get up and down from a chair most. she reports she follows up with the ortho doc on 09/25/24. Reported Pain Level Pain Score 4: Self Report Assessment PT Clinical Summary mrs. alarcon presents to skilled PT for her 20th skilled therapy visit for the R knee after patellar fracture. she displays improved R knee arom, R LE strength, but pain still in the R knee with standing and ambulation activities. she has made mixed progress towards goals. she will hold continued skilled PT at this time, and continue with HEP while she awaits follow up with her ortho . Plan of Care Interventions Electrical Stimulation,Gait Training,Hot Pack/Cold Pack,Manual Therapy,Neuro Re-education,Patient/ Caregiver Education,Therapeutic Activities, Therapeutic Exercise PT Services Indicated Yes Treatment Frequency and hold therapy, continue with HEP, follow up with Duration ortho These treatments will address the objective and functional deficits as defined above. The patient will be advanced safely and appropriately in order for the patient to progress towards his/her prior level of function. Additional exercises will be introduced and as well as a comprehensive home exercise program upon discharge, if needed, ?to ensure carryover of functional gains achieved in the clinic. This treatment plan has been reviewed and agreement upon by the patient.
--- NOTE | 2024-10-08 15:04 | PCPTNOTE ---
patient got new order and new account
== END 2024-10-01 23:59 | disposition home or self-care (01) ==
LOC: CHSPT 13:43
DX: S82.001A Unspecified fracture of right patella, initial encounter for closed fracture (principal); M25.561 Pain in right knee
CPT/HCPCS: 97110; 97112; 97161; 97530

== ENCOUNTER 2024-09-02 20:12 | Emergency (ER) | payer MEDICARE, SELFPAY ==
[2024-09-02] VITALS (9 sets, daily range): BP systolic 95–113; BP diastolic 56–72; PULSE 82–103; RESP 13–25; TEMP 36.6; O2SAT 99–100
--- OUTSIDE RECORDS SUMMARY | 2024-09-02 20:14 | XMS_ITS | Encounter Summary ---
Author Organization [facility] Address [address] [place] [address] Phone Care Team Providers Care Prefabricator Name Role Phone Denis Hansen MD Primary Care Provider Suzanne Klein MD Unavailable [phone] Laurence Oden 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 Not on file No t on file documented as of this encounter Plan of Treatment Not on file documented as of this encounter Procedures Procedure Name Priority Date/Time Associated Diagnosis Comments SCAN - LABS 10/01/2020 documented in this encounter Results * SCAN - LABS (10/01/2020) us Provider Scanning Final Result documented in this encounter Visit Diagnoses Not on filedocumented in this encounter Care Teams Prefabricator Relationship Specialty Start Date End Date Denis Hansen MD [address] [place] [address] PCP - General 12/26/16 Suzanne Klein MD [address] [facility] [address] [place] [address] Medical Oncologist/Deodorizer Operator Hematology 06/09/21 Laurence Oden LCSW [address] [facility] ([facility]) Mailstop [phone] [place] [address] SHOP Outpatient Client Experience Manager 07/12/23 08/09/23 documented as of this encounter
--- OUTSIDE RECORDS SUMMARY | 2024-09-02 20:14 | XMS_ITS | Clinical Summary ---
Author Organization [facility] Address [address] [place] [address] Care Team Providers Care Insurance Adviser Name Role Phone Denis Hansen MD Primary Care Provider [phone] Allergies Active Allergy Reactions Criticality Noted Date Comments Sulfa Antibiotics Itching 11/11/2017 Medications ELIQUIS 5 MG tablet Take 5 mg by mouth 2 (two) times daily. 8 Active gabapentin 100 MG capsule Take 100-200 mg by mouth 3 (three) times daily. Takes 200 mg (2 Caps) in AM, then 100 mg (1 Cap) at Noon, then 200 mg (2 Caps) in PM 8 Active potassium chloride CR 20 MEQ tablet Take 20 mEq by mouth 2 (two) times daily. 8 Active pravastatin 10 MG tablet Take 10 mg by mouth daily. 8 Active ursodiol 500 MG tablet Take 1,000 mg by mouth daily. 8 Active pantoprazole 40 MG tablet Take 1 tablet (40 mg total) by mouth 2 (two) times daily. Take 1 tablet 2 hours after morning dose of carafate and before breakfast every day. Take 1 tablet 1 hour after third dose of carafate and before dinner every day. 120 tablet 8 Active sucralfate 1 GM/10ML suspension Take 10 mLs (1 g total) by mouth 4 (four) times daily. Take at 0600 (2 hours before breakfast), 1100 (1 hour before lunch), 1700(1 hour before dinner), 2200(before bed) 1200 mL 8 Active ferrous sulfate, 65 mg elemental, 325 (65 FE) MG tablet Take 1 tablet (325 mg total) by mouth 2 (two) times a day. 180 tablet 8 Active COMPRESSION STOCKINGS Use compression stockings to help with leg edema. 3 Container 3 8 Active Active Problems Problem Noted Date Diagnosed Date Syncope 11/11/2017 Anemia 11/11/2017 Assessment & Plan (11/11/2017 6:23 PM CDT): - repeat AM CBC - iron studies ordered Blood in stool 11/11/2017 Assessment & Plan (11/11/2017 6:24 PM CDT): - GI consultation - continue eliquis for the time being A-fib ([facility]) 11/11/2017 Assessment & Plan (11/11/2017 6:26 PM CDT): - continue home eliquis for the time Social History Tobacco Use Types Packs/Day Years Used Date Smoking Tobacco: Never Smokeless Tobacco: Never Alcohol Use Standard Drinks/Week Comments No 0 (1 standard drink = 0.6 oz pur e alcohol) AUDIT-C Answer Date Recorded Frequency of Alcohol Consumption Never 11/11/2017 Average Number of Drinks Not on file 018 Frequency of Binge Drinking Not on file 10/22 Comments No Sex and Gender Information Value Date Recorded Sex Assigned at Not on file Legal Sex Female 2:43 AM CDT Gender Identity Not on file Sexual Orientation Not on file Last Filed Vital Signs Vital Sign Reading Time Taken Comments Blood Pressure 96/54 11/14/2017 4:01 PM CDT Pulse 89 11/14/2017 4:01 PM CDT Temperature 36.9 C (98.4 F) 11/14/2017 3:55 PM CDT Respiratory Rate 18 11/14/2017 3:55 PM CDT Oxygen Saturation 97% 11/14/2017 4:01 PM CDT Inhaled Oxygen Concentration - - Weight 66 kg (145 lb 8.1 oz) 11/14/2017 4:32 AM CDT Height 165.1 cm (5' 5) 11/11/2017 6:18 PM CDT Body Mass Index 24.21 11/11/2017 6:18 PM CDT Plan of Treatment Health Maintenance Due Date Last Done Comments Hepatitis C 1964 DTaP, Tdap and Td Vaccines ( 1 - Tdap) 1965 Pneumococcal Vaccine: 50+ Ye ars (1 of 1 - PCV) 1996 Zoster Vaccines (1 of 2) 1996 Annual Medicare Wellness Visit 2011 Dexa Scan (General) 2011 RSV Immunization or 60+ Years (1 - 1-dose 75+ series) 2021 COVID-19 Vaccine (1 - 2023-2 5 season) 2023 Meningococcal B Vaccine Aged Out No l onger eligible based on patient's age to complete this topic Meningococcal Vaccine Aged Out No lucy zoltan eligible based on patient's age to complete this topic RSV Immunizations Under 20 Months Aged Out No longer eligible based on patient's age to complete this topic Insurance MED REPLACE [facility] [place] [address] [facility] [place] [address] Advance Directives * Full Code (Latest Code Status on File) Date Activated Date Inactivated Comments 11/11/2017 6:20 PM 11/14/2017 7:49 PM Care Teams Insurance Adviser Relationship Specialty Start Date End Date Denis Hansen MD [address] [place] [id number] PCP - General INTERNAL MEDICINE 11/11/17
--- OUTSIDE RECORDS SUMMARY | 2024-09-02 20:14 | XMS_ITS | Encounter Summary ---
Author Organization [facility] Address [address] [place] [address] Phone Care Team Providers Care Heat Plant Specialist Name Role Phone Denis Hansen MD Primary Care Provider [phone] Suzanne Klein MD Unavailable [phone] Laurence Oden [facility] Unavailable [phone] Encounter Details Date Type Department Care Team (Latest Contact Info) Description 03/19/2021 Orders Only [facility] Scanning, Provider Social History Tobacco Use Types Packs/Day Years Used Date Smoking Tobacco: Never Smokeless Tobacco: Never Alcohol Use Standard Drinks/Week Comments No 0 (1 standard drink = 0.6 oz pur e alcohol) AUDIT-C Answer Date Recorded Q1: How often do you have a drink containing alc ohol? Monthly or less 11/25/2020 Q2: How many drinks containi ng alcohol do you have on a typical day when you are drinking? 1 or 2 11/25/2020 Q3: How often do you have si x or more drinks on one occasion? 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 No t on file documented as of this encounter Plan of Treatment Not on file documented as of this encounter Procedures Procedure Name Priority Date/Time Associated Diagnosis Comments SCAN - LABS 03/19/2021 documented in this encounter Results * SCAN - LABS (03/19/2021) us Provider Scanning Final Result documented in this encounter Visit Diagnoses Not on filedocumented in this encounter Care Teams Heat Plant Specialist Relationship Specialty Start Date End Date Denis Hansen MD [address] [place] [address] PCP - General 12/26/16 Suzanne Klein MD [address] [place] [address] Medical Oncologist/Circus Train Supervisor Hematology 06/09/21 Laurence Oden LCSW [address] [facility] ([facility]) Mailstop [phone] [place] [address] SHOP Outpatient Manager Pool 07/12/23 08/09/23 documented as of this encounter
--- OUTSIDE RECORDS SUMMARY | 2024-09-02 20:14 | XMS_ITS | Encounter Summary ---
Author Organization [facility] Address [address] [place] [address] Care Team Providers Care Machining And Assembly Supervisor Name Role Phone Denis Hansen MD Primary Care Provider Encounter Details Date Type Department Care Team (Latest Contact Info) Description 11/12/2017 Abstract [facility] Michell Ruelas MD Social History Tobacco Use Types Packs/Day Years [...] on file Sexual Orientation Not on file documented as of this encounter Functional Status documented as of this encounter Mental Status * Question Answer Entry Date Author Status Because of a physical, mental, or emotional condition, do you have serious difficulty concentrating, remembering, or making decisions? No 11/14/2017 4:56 PM CDT Fest[employer] Rust LP N Active documented in this encounter Plan of Treatment Not on file documented as of this encounter Visit Diagnoses Not on filedocumented in this encounter Care Teams Machining And Assembly Supervisor Relationship Specialty Start Date End Date Denis Hansen MD [address] [place] [id number] PCP - General INTERNAL MEDICINE 11/11/17 documented as of this encounter
--- OUTSIDE RECORDS SUMMARY | 2024-09-02 20:14 | XMS_ITS | Encounter Summary ---
Author Organization [facility] Address [address] [place] [address] Phone Care Team Providers Care Treasury Assistant Name Role Phone Denis Hansen MD Primary Care Provider [phone] Suzanne Klein MD Unavailable [phone] Laurence Oden [facility] Unavailable [phone] Encounter Details Date Type Department Care Team (Late st Contact Info) Description 02/19/2021 Orders Only [facility] Scanning, Provider Social [...] on file Legal Sex Female 8:41 PM CERTIFIED SURGICAL FIRST ASSISTANT Gender Identity Not on file Sexual Orientation Not on file 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 No t on file documented as of this encounter Plan of Treatment Not on file documented as of this encounter Procedures Procedure Name Priority Date/Time Associated Diagnosis Comments SCAN - RADIOLOGY/IMAGING 02/19/2021 documented in this encounter Results * SCAN - RADIOLOGY/IMAGING (02/19/2021) Anatomical Region Laterality Modality Other Provider Scanning Final Result documented in this encounter Visit Diagnoses Not on filedocumented in this encounter Care Teams Treasury Assistant Relationship Specialty Start Date End Date Denis Hansen MD [address] [place] [address] PCP - General 12/26/16 Suzanne Klein MD [address] [place] [address] Medical Oncologist/Nurse Midwife/Clinical Instructor Hematology 06/09/21 Laurence Oden, REMELTER [address] [facility] ([facility]) Mailstop [phone] [place] [address] SHOP Outpatient Paving Rammer 07/12/23 08/09/23 documented as of this encounter
--- OUTSIDE RECORDS SUMMARY | 2024-09-02 20:14 | XMS_ITS | Encounter Summary ---
Author Organization [facility] Address [address] [place] [address] Phone Care Team Providers Care Auto Electrician Name Role Phone Denis Hansen MD Primary Care Provider + [phone] Suzanne Klein MD Unavailable [phone] Laurence Oden [facility] Unavailable [phone] Encounter Details Date Type Department Care Team (Late st Contact Info) Description 04/02/2021 Orders Only [facility] Scanning, Provider Social History Tobacco Use Types Packs/Day Years Used Date Smoking Tobacco: Never Smokeless Tobacco: Never Alcohol Use Standard Drinks/Week Comments No 0 (1 standard drink = 0.6 oz pur e alcohol) AUDIT-C Answer Date Recorded Q1: How often do you have a drink containing alc ohol? Never 04/06/2021 Average Number of Drinks Not on file 022 Q3: How often do you have si x or more drinks on one occasion? 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 on file documented as of this encounter Plan of Treatment Not on file documented as of this encounter Procedures Procedure Name Priority Date/Time Associated Diagnosis Comments SCAN - LABS 04/02/2021 documented in this encounter Results * SCAN - LABS (04/02/2021) us Provider Scanning Final Result documented in this encounter Visit Diagnoses Not on filedocumented in this encounter Care Teams Auto Electrician Relationship Specialty Start Date End Date Denis Hansen MD [address] [place], [place] [id number] PCP - General 12/26/16 Suzanne Klein MD [address] [place] [address] Medical Oncologist/Anesthesiology Medical Doctor Hematology 06/09/21 Laurence Oden LCSW [address] [facility] ([facility]) Mailstop [phone] [place] [address] SHOP Outpatient Billet Heater Operator 07/12/23 08/09/23 documented as of this encounter
--- OUTSIDE RECORDS SUMMARY | 2024-09-02 20:14 | XMS_ITS | Encounter Summary ---
Author Organization [facility] Address [address] [place] [address] Phone Care Team Providers Care Grease Refiner Operator Name Role Phone Denis Hansen MD Primary Care Provider + [phone] Suzanne Klein MD Unavailable [phone] Laurence Oden [facility] Unavailable [phone] Encounter Details Date Type Department Care Team (Late st Contact Info) Description 11/29/2022 Orders Only [facility] Scanning, Provider Social History Tobacco Use Types Packs/Day Years Used Date Smoking Tobacco: Never Smokeless Tobacco: Never Alcohol Use Standard Drinks/Week Comments No 0 (1 standard drink = 0.6 oz pur e alcohol) AUDIT-C Answer Date Recorded Q1: How often do you have a drink containing alcohol? Never 06/24/2022 Q2: How many drinks containi ng alcohol do you have on a typical day when you are drinking? Patient does not drink Q3: How often do you have si x or more drinks on one occasion? Never 06/24/2022 Personal Safety Answer Date Recorded Have you ever been in or are you currently in a harmful physical or emotional relationship or is someone making you feel afraid or unsafe? 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 on file documented as of this encounter Plan of Treatment Not on file documented as of this encounter Procedures Procedure Name Priority Date/Time Associated Diagnosis Comments SCAN - LABS 11/29/2022 documented in this encounter Results * SCAN - LABS (11/29/2022) us Provider Scanning Final Result documented in this encounter Visit Diagnoses Not on filedocumented in this encounter Care Teams Grease Refiner Operator Relationship Specialty Start Date End Date Denis Hansen MD [address] [place] [address] PCP - General 12/26/16 Suzanne Klein MD [address] [place] [address] Medical Oncologist/Chief Financial Officer Hematology 06/09/21 Laurence Oden LCSW [address] [facility] ([facility]) [phone] [place] [address] SHOP Outpatient Coo 07/12/23 08/09/23 documented as of this encounter
--- OUTSIDE RECORDS SUMMARY | 2024-09-02 20:15 | XMS_ITS | Clinical Summary ---
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 Interpretive Comments: A. Dyspnea in Acute Care Setting All Ages: < 300 pg/ml, acute heart failure unlikely. < 50 yrs: 300 - 450 pg/ml, further investigation warranted. > 450 pg/ml, acute heart failure likely. 50 - 74 yrs: 300 - 900 pg/ml, further investigation warranted. > 900 pg/ml, acute heart failure likely . > or = 75 yrs: 450 - 1800 pg/ml, further investigation warranted. > 1800 pg/ml, acute heart failure likely. B. Non-acute Setting < 75 yrs < 125 pg/ml, rules out heart failure. > or = 125 pg/ml, further investigation warranted. > or = 75 yrs < 450 pg/ml, rules out heart failure. > or = 450 pg/ml, further investigation warranted. - Knowledge of each individual patient's NT-proBNP range may be more useful than using similar cut-points for every patient. Please note that marked elevations in NT-proBNP levels may be observed in state other than Left Ventricular Congestive Failure, including: acute coronary syndromes, right heart strain/failure (including pulmonary embolism and cor pulmonale), critical illness, renal failure, as well as advanced age. - References: 1. Magdaleno ALLRED et.al. Eur Heart J. 2006:27:330-337. 2. Annabelle RW, Nika AM. J. AM Vida Cardiol: Cardiovasc Imag. 2009;2: 216- 225. Interpretive Data Last Revised Date: 2017. Blood 09/02/2024 4:27 PM CDT 09/02/2024 6:50 PM CDT us Edson Vega MD LAB BLOOD ORDERABLES Final Re sult [facility] [place] [address] * (ABNORMAL) Basic metabolic panel (09/02/2024 4:27 PM CDT) [facility] Sodium 141 135 - 145 mmol/L Potassium, pl 7.0(C) 3.3 - 4.9 mmol/L [facility] Chloride 117(H) 97 - 110 mmol/L [facility] CO2 20(L) 22 - 32 mmol/L [facility] Anion gap 4 2 - 15 mmol/L [facility] BUN 25 6 - 25 mg/dL [facility] Creatinine 1.57(H) 0.60 - 1.10 mg/dL [facility] Glucose 118 70 - 199 mg/dL [facility] Comment: Interpretive Data Fasting glucose >/= 126 mg/dl is diagnostic for diabetes. Fasting is defined as no caloric intake for at least 8 hours. Fasting glucose between 100 mg/dl to 125 mg/dl is diagnostic of prediabetes. In a patient with classic symptoms of hyperglycemia or hyperglycemic crisis, a random glucose >/= 200 mg/dl is diagnostic for diabetes. In the absence of unequivocal hyperglycemia, results should be confirmed by repeat testing. The classification and Diagnosis of Diabetes Diabetes Care 2022; 46: S19-S40. Current interpretive data was last revised 2022. Calcium 10.0 8.5 - 10.3 mg/dL [facility] Blood 09/02/2024 4:27 PM CDT 09/02/2024 6:50 PM CDT us Edson Vega MD LAB BLOOD ORDERABLES Final Re sult [facility] Department [place] [address] * MRI Abdomen Liver W WO Contrast (09/02/2024 12:21 PM CDT) Anatomical Region Laterality Modality Body N/A Magnetic Resonan ce 09/02/2024 2:47 PM CDT Impressions 09/02/2024 3:11 PM CDT IMPRESSION: 1. Previously described LR 3 lesion is less discrete on this exam and not measurable. No new suspicious hepatic lesion. 2. Stigmata of cirrhosis with portal hypertension. 3. Similar biliary ductal dilatation predominantly in the left lateral section. 4. Persistent marked gastric distention, similar to multiple prior exams and possibly related to stenosis at gastrojejunostomy. This can be further evaluated with upper GI exam as indicated. Dictated by: Clayton Scruggs MD The radiology attending physician has personally reviewed this study, and had reviewed and/or edited this written report and agrees with it. Electronically signed by: Tess Degroot M.D. Narrative 09/02/2024 3:11 PM CDT EXAMINATION: MAGNETIC RESONANCE IMAGING OF THE ABDOMEN WITH AND WITHOUT CONTRAST HISTORY: 79-year-old woman with autoimmune hepatitis and primary biliary cirrhosis. Follow-up hepatic lesion. TECHNIQUE: Magnetic resonance imaging of the abdomen was performed prior to and following the uneventful administration of intravenous contrast. Protocol: Liver Contrast: Dotarem (gadoterate) 10 mL COMPARISON: 02/12/2024 MRI. FINDINGS: Liver: Nodular liver surface morphology in keeping with cirrhosis. No significant iron or fat deposition. - Bile ducts: There is biliary ductal dilatation in the left hemiliver, most predominant in the lateral section. This is similar in severity to prior exam. - Focal liver lesions: Previously described LR 3 lesion in hepatic segment 8 is not well visualized on this exam. No new suspicious hepatic lesion. - Vasculature: Portal vasculature is patent. Gallbladder: Absent. Pancreas: There is unchanged mild prominence of the pancreatic duct with cystic lesions in the pancreatic head measuring up to 1.5 cm, unchanged and likely represent containing intraductal papillary mucinous neoplasms. Spleen: Absent with multiple splenules noted in the left upper quadrant. Adrenals: Normal. Kidneys: Scattered renal cysts. Other Findings: Trace ascites. Recanalized umbilical vein. Changes of gastric bypass with unchanged distention of the stomach upstream to gastrojejunostomy, similar to multiple prior exams. Procedure Note Tess Degroot MD - 09/02/2024 EXAMINATION: MAGNETIC RESONANCE IMAGING OF THE ABDOMEN WITH AND WITHOUT CONTRAST HISTORY: 79-year-old woman with autoimmune hepatitis and primary biliary cirrhosis. Follow-up hepatic lesion. TECHNIQUE: Magnetic resonance imaging of the abdomen was performed prior to and following the uneventful administration of intravenous contrast. Protocol: Liver Contrast: Dotarem (gadoterate) 10 mL COMPARISON: 02/12/2024 MRI. FINDINGS: Liver: Nodular liver surface morphology in keeping with cirrhosis. No significant iron or fat deposition. - Bile ducts: There is biliary ductal dilatation in the left hemiliver, most predominant in the lateral section. This is similar in severity to prior exam. - Focal liver lesions: Previously described LR 3 lesion in hepatic segment 8 is not well visualized on this exam. No new suspicious hepatic lesion. - Vasculature: Portal vasculature is patent. Gallbladder: Absent. Pancreas: There is unchanged mild prominence of the pancreatic duct with cystic lesions in the pancreatic head measuring up to 1.5 cm, unchanged and likely represent containing intraductal papillary mucinous neoplasms. Spleen: Absent with multiple splenules noted in the left upper quadrant. Adrenals: Normal. Kidneys: Scattered renal cysts. Other Findings: Trace ascites. Recanalized umbilical vein. Changes of gastric bypass with unchanged distention of the stomach upstream to gastrojejunostomy, similar to multiple prior exams. IMPRESSION: IMPRESSION: 1. Previously described LR 3 lesion is less discrete on this exam and not measurable. No new suspicious hepatic lesion. 2. Stigmata of cirrhosis with portal hypertension. 3. Similar biliary ductal dilatation predominantly in the left lateral section. 4. Persistent marked gastric distention, similar to multiple prior exams and possibly related to stenosis at gastrojejunostomy. This can be further evaluated with upper GI exam as indicated. Dictated by: Clayton Scruggs MD The radiology attending physician has personally reviewed this study, and had reviewed and/or edited this written report and agrees with it. Electronically signed by: Tess Degroot M.D. Fariha Low MD IMG MRI PROCEDURES F inal Result * XR Knee Right 1 or 2 Views (06/25/2024 11:05 AM CDT) Anatomical Region Laterality Modality Lower Extremities, Knee Right Computed Radiography 06/25/2024 11:2 1 AM CDT Impressions 06/25/2024 11:21 AM CDT Healing mildly displaced right patellar fracture. Electronically signed by: Jessee Owens M.D. Narrative 06/25/2024 11:21 AM CDT EXAMINATION: XR KNEE RIGHT 1 OR 2 VIEWS HISTORY: Patellar fracture FINDINGS: 2 views of the right knee were performed with comparison made to 06/04/2024. There is a healing mildly displaced transverse patellar fracture. Joint effusion has improved. There is moderate right knee osteoarthritis. Bones are osteopenic. Vascular calcifications are noted. Procedure Note Jessee Owens MD PhD - 06/25/2024 EXAMINATION: XR KNEE RIGHT 1 OR 2 VIEWS HISTORY: Patellar fracture FINDINGS: 2 views of the right knee were performed with comparison made to 06/04/2024. There is a healing mildly displaced transverse patellar fracture. Joint effusion has improved. There is moderate right knee osteoarthritis. Bones are osteopenic. Vascular calcifications are noted. IMPRESSION: Healing mildly displaced right patellar fracture. Electronically signed by: Jessee Owens M.D. us Lamberto Madsen MD IMG XR PROCEDURES Final R esult * XR Knee Right 1 or 2 Views (06/04/2024 11:21 AM CDT) Anatomical Region Laterality Modality Lower Extremities, Knee Right Computed Radiography 06/04/2024 11:3 2 AM CDT Impressions 06/04/2024 11:32 AM CDT 1. Unchanged mildly displaced patellar fracture with articular incongruence in unchanged alignment Electronically signed by: Erik Ingram MD Narrative 06/04/2024 11:32 AM CDT EXAMINATION: XR KNEE RIGHT 1 OR 2 VIEWS HISTORY: Knee pain. FINDINGS: Comparison to 05/09/2024. Unchanged mildly displaced patellar fracture with articular incongruence. Alignment is unchanged. Small to moderate effusion. No new fracture. Moderate lateral predominant knee osteoarthritis. Atherosclerotic calcifications. Procedure Note Erik Ingram MD - 06/04/2024 EXAMINATION: XR KNEE RIGHT 1 OR 2 VIEWS HISTORY: Knee pain. FINDINGS: Comparison to 05/09/2024. Unchanged mildly displaced patellar fracture with articular incongruence. Alignment is unchanged. Small to moderate effusion. No new fracture. Moderate lateral predominant knee osteoarthritis. Atherosclerotic calcifications. IMPRESSION: 1. Unchanged mildly displaced patellar fracture with articular incongruence in unchanged alignment Electronically signed by: Erik Ingram MD us Lamberto Madsen MD IMG XR PROCEDURES Final R esult * Hepatitis C antibody Blood (07/10/2023 5:21 AM CDT) Hep C Ab Nonreactive Nonreactive Comment:Antibodies to HCV no t detected. Does NOT exclude the possibility of recent exposure to HCV. Current interpretive data was last revised on 21 Blood 07/10/2023 5:21 AM CDT 07/10/2023 5:39 AM CDT us Giovanni Mrury MD LAB MICROBIOLOGY - GEN ERAL ORDERABLES Edited Result - Final [facility] Department [place] [address] * COLONOSCOPY (01/26/2022 8:35 AM SALON ASSISTANT) Anatomical Region Laterality Modality Other Narrative Procedure Note Ghassan Healy MD - 01/26/2022 8:35 AM CST [facility] Patient Name: Andreina Dinh Procedure Date: 01/26/2022 8:35 AM Date of : 1945 Admit Type: Outpatient Age: 76 Gender: Female Attending MD: Ghassan Leonard M.D. Room: [facility] ENDOSCOPY ROOM 9 Note Status: Finalized Procedure: Colonoscopy Indications: Screening for colorectal malignant neoplasm; evaluation of iron deficiency anemia. Referring MD: Fariha Low M.D. Providers: Ghassan Leonard M.D. Medicines: Monitored Anesthesia Care Complications: No immediate complications. Estimated Blood Loss: Estimated blood loss was minimal. Procedure: Pre-Anesthesia Assessment: - The risks and benefits of the procedure and the sedation options and risks were discussed with the patient. All questions were answered and informed consent was obtained. - Immediately prior to administration ofmedications, the patient was re-assessed for adequacy to receive sedatives. The benefits, risks and alternatives of theprocedure and sedation were discussed and informed consentwas obtained. All questions were answered. Please referto the signed informed consent document in the medical record. The scope was passed under direct vision.The CF [id number] endoscope was introduced through the anus and advanced to the terminal ileum. The colonoscopy was performed without difficulty. The patient tolerated the procedure well. The qualityof the bowel preparation was good. The quality of the bowel preparation was evaluated using the BBPS([place] Bowel Preparation Scale) with scores of: RightColon = 3, Transverse Colon = 3 and Left Colon = 3 (entire mucosa seen well with no residual staining, small fragments of stool or opaque liquid). The totalBBPS score equals 9. The bowel preparation used was polyethylene glycol (PEG) via split doseinstruction. Findings: The perianal and digital rectal examinations were normal. The terminal ileum appeared normal. Three sessile polyps were found in the transverse colon and ascending colon. The polyps were 2 to 5 mm in size. The polyp was removed witha cold biopsy forceps and The polyp was removed with a cold snare. Resection and retrieval were complete. For hemostasis, threehemostatic clips were successfully placed. There was no bleeding at the end ofthe procedure. A 10 mm polyp was found in the sigmoid colon. The polyp was semi-pedunculated. The polyp was removed with a hot snare. Resectionand retrieval were complete. To prevent bleeding after the polypectomy,one hemostatic clip was successfully placed. Large, non-bleeding rectal varices were found. Non-bleeding internal hemorrhoids were found during retroflexion. The hemorrhoids were mild. The colon (entire examined portion) revealed significantly excessive looping. External pressure from two assistance required to completethe examination. Impression: - Significant colonoscopy looping was encountered require external pressure to complete examination. Recommend Colowrap for future examinations. - Three 2 to 5 mm polyps in the transverse colonand in the ascending colon, the largest removed with a cold snare and the smaller two removed with a cold biopsy forceps. Resected and retrieved. Clips were placed at the cold snare site. - One 10 mm (suspect inflammatory) polyp in the sigmoid colon, removed with a hot snare. Resectedand retrieved. Clip was placed. - Rectal varices and non-bleeding internalhemorrhoids. Recommendation: - A polyp or polyps were removed during your colonoscopy today. After the pathology result ofthe polyp(s) is reviewed, the doctor who performed your colonoscopy will recommend follow-up colonoscopy to you based on current guidelines by gastroenterology societies: > If only small hyperplastic polyps from the rectumor sigmoid were removed, repeat the colonoscopy in 10 years. > If 1 or 2 polyps less than 1 cm in size are adenomas, repeat the colonoscopy in 5 years. > If 3 or more polyps are adenomas, repeat the colonoscopy in 3 years. > If there are 10 or more adenomas, repeat the colonoscopy in 1 year. > If any polyp is 10 mm or greater in size, has villous histology or high grade dysplasia, repeatthe colonoscopy in 3 years. > If a polyp greater than 2 cm was removed with a piecemeal technique, repeat the colonoscopy in 6 months to be certain that there is no residualpolyp. > Sessile serrated polyps are treated like adenomas for surveillance purposes. - Restart Eliquis tomorrow. - Return to referring provider as indicated. - In the unusual situation that you developabdominal pain, bleeding or other significant problems in the days following this procedure please call my office [phone]). After hours and eveningsplease call [phone] and speak to the GI fellow corey. Please tell the fellow that Dr. Leonard did your procedure and that you were instructed to have the fellow call me or the physician covering for me to discuss the management of your condition. If youhave an urgent problem, please go to the nearestemergency room and have the ER doctor call my office duringthe day or the GI fellow after hours and weekends to arrange admission or transfer to our facility.Please bring this report with you if you go to theemergency room. Attending Participation: I personally performed the entire procedure. Electronically signed by Ghassan Leonard MD Ghassan Leonard M.D. 01/26/2022 9:34:45 AM . Number of Addenda: 0 Note Initiated On: 01/26/2022 8:35 AM Recognized by the [place] [employer] for promoting quality in endoscopy Ghassan Leonard MD ENDOSCOPY PROCEDURES Final Result from Last 3 Months or Most Recently Relevant to Health Maintenance Insurance [facility] MEDICARE UHC MEDICARE ADVANTAGE [employer] [facility] MEDICARE Advance Directives For more information, please contact: [phone] * Full Code (Latest Code Status on File) Date Activated Date Inactivated Comments 11/03/2023 9:05 AM 11/10/2023 6:58 PM * Full Code Date Activated Date Inactivated Comments 07/09/2023 5:04 PM 07/11/2023 8:45 PM * Full Code Date Activated Date Inactivated Comments 06/24/2022 8:14 AM 06/24/2022 1:40 PM * Full Code Date Activated Date Inactivated Comments 03/28/2022 7:30 AM 03/28/2022 1:41 PM * Full Code Date Activated Date Inactivated Comments 01/26/2022 8:05 AM 01/26/2022 2:36 PM Care Teams Raw Cheese Worker Relationship Specialty Start Date End Date Denis Hansen MD [address] [place] [address] PCP - General 12/26/16 Suzanne Klein MD [address] [place] [address] Medical Oncologist/Smoking Pipe Coater Hematology 06/09/21
--- OUTSIDE RECORDS SUMMARY | 2024-09-02 20:15 | XMS_ITS | Encounter Summary ---
Author Organization [facility] Address [address] [place] [address] Phone Care Team Providers Care Radar Operator Name Role Phone Denis Hansen MD Primary Care Provider Suzanne Klein MD Unavailable [phone] Laurence Oden [facility] Unavailable [phone] Encounter Details Date Type Department Care Team (Late st Contact Info) Description 08/07/2020 Orders Only [facility] Scanning, Provider Social History Tobacco Use Types Packs/Day Years Used Date Smoking Tobacco: Never Smokeless Tobacco: Never Alcohol Use Standard Drinks/Week Comments No 0 (1 standard drink = 0.6 oz pur e alcohol) Comments No Sex and Gender Information Value Date Recorded Sex Assigned at Not on file Legal Sex Female 8:41 PM FIELD RADIO TECHNICIAN Gender Identity Not on file Sexual Orientation Not on file 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 Not on file No t on file documented as of this encounter Plan of Treatment Not on file documented as of this encounter Procedures Procedure Name Priority Date/Time Associated Diagnosis Comments SCAN - LABS 08/07/2020 documented in this encounter Results * SCAN - LABS (08/07/2020) us Provider Scanning Final Result documented in this encounter Visit Diagnoses Not on filedocumented in this encounter Care Teams Radar Operator Relationship Specialty Start Date End Date Denis Hansen MD [address] [place] [address] PCP - General 12/26/16 Suzanne Klein MD [address] [place] [address] Medical Oncologist/Ferryboat Operator Cable Hematology 06/09/21 Laurence Oden LCSW [address] [facility] ([facility]) Mailstop [phone] [place] [address] [employer]OP Outpatient Internet Marketing Assistant 07/12/23 08/09/23 documented as of this encounter
--- OUTSIDE RECORDS SUMMARY | 2024-09-02 20:15 | XMS_ITS | Encounter Summary ---
Author Organization [facility] Healthcare Address [address] [place] [address] Care Team Providers Care Personnel Technician Name Role Phone Denis Hansen MD Primary Care Provider Suzanne Klein MD Unavailable [phone] Reason for Referral * MRI/CAT/PET Scan (Routine) - Closed Specialty Diagnoses / Procedures Referred By [facility] Referred To Contact Radiology Diagnoses Primary biliary cirrhosis (HCC) Autoimmune hepatitis (HCC) Procedures MRI Abdomen Liver W WO Contrast Fariha Low MD [address] [address] Phone: tel: fax: [facility] Referral ID Status Reason Start Date Expiration Date Visits Re quested Visits Authorized [id number] Closed 03/04/2024 04/03/2025 1 1 Reason for Visit * MRI/CAT/PET Scan (Routine) - Closed Specialty Diagnoses / Procedures Referred By [facility] Referred To Contact Radiology Diagnoses Primary biliary cirrhosis (HCC) Autoimmune hepatitis (HCC) Procedures MRI Abdomen Liver W WO Contrast Fariha Low MD [address] [address] Phone: tel: fax: [facility] Referral ID Status Reason Start Date Expiration Date Visits Re quested Visits Authorized [id number] Closed 03/04/2024 04/03/2025 1 1 Encounter Details Date Type Department Care Team (Latest Contact Info) Description 09/02/2024 10:50 AM CDT Hospital Encounter [facility] [address] [place] [address] Fariha Low MD [address] [place] [address] Primary biliary cirrhosis (HCC); Autoimmune hepatitis (HCC) Social History Tobacco Use Types Packs/Day Years Used Date Smoking Tobacco: Never Passive Smoke Exposure: Never Smokeless Tobacco: Never Alcohol Use Standard Drinks/Week Comments No 0 (1 standard drink = 0.6 oz pur e alcohol) [facility] Utilities Answer Date Recorded In the past 12 months has e [employer], gas, oil, or water [employer] threatened to shut off services in your [...] often do you attend chur ch or sabianism services? More than 4 times per year 07/12/2023 Do you belong to any clubs o r organizations such as yazdanism groups, unions, fraternal or athletic groups, or [...] any time in the past 12 m [facility], were you homeless or living in a custodial (including now)? No 07/12/2023 Personal Safety Answer Date Recorded Have you ever been in or are you currently in a harmful physical or emotional relationship or is someone making you feel afraid or unsafe? 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 Fariha Low MD IM MRI PROCEDURES F inal Result documented in this encounter Visit Diagnoses Diagnosis Primary biliary cirrhosis (HCC) Biliary cirrhosis Autoimmune hepatitis (HCC) Autoimmune hepatitis documented in this encounter Administered Medications Inactive Administered Medications - up to 3 most recent administrations Medication Order MAR Action Action Date Dose Rate Site gadoterate meglumine injection 10 mL 10 mL, intravenous, Once in imaging, contrast, Starting on 09/02/24 at 1209, For 1 dose Contrast Given 09/02/2024 12:10 PM CDT 10 mL documented in this encounter Orders Medications Ordered That Gamaliel ht Not Have Been Administered Count Last Ordered Date First Ordered Date gadoterate meglumine injection 10 mL 1 08/20 documented in this encounter Care Teams Personnel Technician Relationship Specialty Start Date End Date Denis Hansen MD [address] [place] [address] PCP - General 12/26/16 Suzanne Klein MD [address] [place] [address] Medical Oncologist/Line Cook Hematology 06/09/21 documented as of this encounter
--- OUTSIDE RECORDS SUMMARY | 2024-09-02 20:15 | XMS_ITS | Continuity of Care Document ---
Author Organization [facility] Main Address [address] [facility] [address] [place] [address] Insurance Providers Payer Plan Claims Address Claims Phone Policy Number Group Number Relation Employer Guarantor Name Guarantor Guarantor Address Guarantor Phone [employer] [address] [address], [place] [address] tel:[phone] Vaibhav Dinh [address] [place] [address] [employer] [address], [place] [address] tel:[phone] Vaibhav Dinh [address] [place] [address] [employer] [address], [place] [address] tel:[phone] Vaibhav Dinh [address] [place] [address] Problems Condition ICD9 code ICD10 code SNOMED code Start Date End Date S tatus Altered mental status, unspecified R41.82 Working Acute kidney failure, unspecified N17.9 Working Disorder of urea cycle metabolism, unspecified E72.20 W orking Hepatic encephalopathy K76.82 W orking Other malaise R53.81 Working Primary biliary cirrhosis K74.3 Working Asymptomatic menopausal state Z78.0 Working Age-related osteoporosis without current pathological fracture M81.0 Wor sabine Fracture of unspecified part of neck of right femur, initial encounter for closed fracture S72.001A Worki ng Results No Results Allergies, adverse reactions, alerts No known allergies and adverse reactions Medications No administered medications reported Vital Signs No vital signs reported Social History No smoking Hx information available
--- OUTSIDE RECORDS SUMMARY | 2024-09-02 20:15 | XMS_ITS | Encounter Summary ---
Author Organization [facility] Address [address] [place] [address] Phone Care Team Providers Care Top Printing Press Operator Name Role Phone Denis Hansen MD Primary Care Provider [phone] Suzanne Klein MD Unavailable [phone] Laurence Oden [facility] Unavailable [phone] Encounter Details Date Type Department Care Team (Late st Contact Info) Description 06/24/2020 Orders Only [facility] Scanning, Provider Social History Tobacco Use Types Packs/Day Years Used Date Smoking Tobacco: Never Smokeless Tobacco: Never Alcohol Use Standard Drinks/Week Comments No 0 (1 standard drink = 0.6 oz pur e alcohol) Comments No Sex and Gender Information Value Date Recorded Sex Assigned at Not on file Legal Sex Female 8:41 PM MOLD WASHER Gender Identity Not on file Sexual Orientation Not on file 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 No t on file documented as of this encounter Plan of Treatment Not on file documented as of this encounter Procedures Procedure Name Priority Date/Time Associated Diagnosis Comments SCAN - LABS 06/24/2020 documented in this encounter Results * SCAN - LABS (06/24/2020) us Provider Scanning Final Result documented in this encounter Visit Diagnoses Not on filedocumented in this encounter Care Teams Top Printing Press Operator Relationship Specialty Start Date End Date Denis Hansen MD [address] [place] [address] PCP - General 12/26/16 Suzanne Klein MD [address] [facility] [address] [place] [address] Medical Oncologist/Fig Washer Hematology 06/09/21 Laurence Oden LCSW [address] [facility] ([facility]) Mailstop [phone] [place] [address] [facility] Outpatient Oil Expert 07/12/23 08/09/23 documented as of this encounter
--- OUTSIDE RECORDS SUMMARY | 2024-09-02 20:15 | XMS_ITS | Encounter Summary ---
Author Organization [facility] Healthcare Address [address] [place] [address] Care Team Providers Care Support Architect Name Role Phone Denis Hansen MD Primary Care Provider Suzanne Klein MD Unavailable Laurence Oden [facility] Unavailable Encounter Details Date Type Department Care Team (Late st Contact Info) Description 10/03/2019 Telephone [facility] ([facility]) [address] [place], [place] [id number] Laura Pérez MD [address] 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 Not on file No t on file documented as of this encounter Plan of Treatment Not on file documented as of this encounter Visit Diagnoses Not on filedocumented in this encounter Care Teams Support Architect Relationship Specialty Start Date End Date Denis Hansen MD [address] [place] [address] PCP - General 12/26/16 Suzanne Klein MD [address] [place] [address] Medical Oncologist/Manager Generation Hematology 06/09/21 Laurence Oden LCSW [address] [facility] ([facility]) Mailstop [phone] [place] [address] [facility] Outpatient High School Assistant Football Coach 07/12/23 08/09/23 documented as of this encounter
--- OUTSIDE RECORDS SUMMARY | 2024-09-02 20:15 | XMS_ITS | Encounter Summary ---
Author Organization [facility] Address [address] [place] [address] Phone Care Team Providers Care Poultry And Fish Butcher Name Role Phone Denis Hansen MD Primary Care Provider [phone] Suzanne Klein MD Unavailable [phone] Laurence Oden [facility] Unavailable [phone] Encounter Details Date Type Department Care Team (Latest Contact Info) Description 08/07/2018 Orders Only [facility] IM EML Scanning, Provider Social History Tobacco Use Types Packs/Day Years Used Date Smoking Tobacco: Never Smokeless Tobacco: Never Alcohol Use Standard Drinks/Week Comments No 0 (1 standard drink = 0.6 oz pur e alcohol) Comments Unknown Sex and Gender Information Value Date Recorded Sex Assigned at Not on file Legal Sex Female 8:41 PM WATER LEAK REPAIRER Gender Identity Not on file Sexual Orientation Not on file 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 No t on file documented as of this encounter Plan of Treatment Not on file documented as of this encounter Procedures Procedure Name Priority Date/Time Associated Diagnosis Comments SCAN - LABS 08/07/2018 documented in this encounter Results * SCAN - LABS (08/07/2018) us Provider Scanning Final Result documented in this encounter Visit Diagnoses Not on filedocumented in this encounter Care Teams Poultry And Fish Butcher Relationship Specialty Start Date End Date Denis Hansen MD [address] [place] [address] PCP - General 12/26/16 Suzanne Klein MD [address] [place] [address] Medical Oncologist/Ortho/Prosthetic Aide Hematology 06/09/21 Laurence Oden LCSW [address] [facility] ([facility]) Mailstop [phone] [place] [address] [facility] Outpatient Education Nurse 07/12/23 08/09/23 documented as of this encounter
--- OUTSIDE RECORDS SUMMARY | 2024-09-02 20:15 | XMS_ITS | Encounter Summary ---
Author Organization [facility] Address [address] [place] [address] Phone Care Team Providers Care Gun Striper Name Role Phone Denis Hansen MD Primary Care Provider [phone] Suzanne Klein MD Unavailable [phone] Laurence Oden [facility] Unavailable [phone] Encounter Details Date Type Department Care Team (Latest Contact Info) Description 08/13/2018 Orders Only [facility] IM EML Scanning, Provider Social History Tobacco Use Types Packs/Day Years Used Date Smoking Tobacco: Never Smokeless Tobacco: Never Alcohol Use Standard Drinks/Week Comments No 0 (1 standard drink = 0.6 oz pur e alcohol) Comments Unknown Sex and Gender Information Value Date Recorded Sex Assigned at Not on file Legal Sex Female 8:41 PM RHEUMATOLOGIST Gender Identity Not on file Sexual Orientation Not on file 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 No t on file documented as of this encounter Plan of Treatment Not on file documented as of this encounter Procedures Procedure Name Priority Date/Time Associated Diagnosis Comments SCAN - RADIOLOGY/IMAGING 08/13/2018 documented in this encounter Results * SCAN - RADIOLOGY/IMAGING (08/13/2018) Anatomical Region Laterality Modality Other us Provider Scanning Final Result documented in this encounter Visit Diagnoses Not on filedocumented in this encounter Care Teams Gun Striper Relationship Specialty Start Date End Date Denis Hansen MD [address] [place] [address] PCP - General 12/26/16 Suzanne Klein MD [address] [place] [address] Medical Oncologist/Oven Unloader Hematology 06/09/21 Laurence Oden LCSW [address] [facility] ([facility]) Mailstop [phone] [place] [address] [facility] Outpatient Windows Laptop Technician 07/12/23 08/09/23 documented as of this encounter
--- OUTSIDE RECORDS SUMMARY | 2024-09-02 20:15 | XMS_ITS | Encounter Summary ---
Author Organization [facility] Healthcare Address [address] [place] [address] Care Team Providers Care Group Work Program Aide Name Role Phone Denis Hansen MD Primary Care Provider Suzanne Klein MD Unavailable [phone] Encounter Details Date Type Department Care Team (Late st Contact Info) Description 09/02/2024 4:20 PM CDT Lab [facility] [address] [place] [address] Paroxysmal atrial fibrillation with RVR (HCC); Atrial fibrillation (HCC) Social History Tobacco Use Types Packs/Day Years Used Date Smoking Tobacco: Never Passive Smoke Exposure: Never Smokeless Tobacco: Never Alcohol Use Standard Drinks/Week Comments No 0 (1 standard drink = 0.6 oz pur e alcohol) [facility] Utilities Answer Date Recorded In the past 12 months has [employer], gas, oil, or water [employer] threatened to shut off services in your [...] week 07/12/2023 How often do you attend [facility] or synagogue services? More than 4 times per year 07/12/2023 Do you belong to any clubs o r organizations such as anglican groups, unions, fraternal or athletic groups, or [...] any time in the past 12 m [facility], were you homeless or living in a jail (including now)? No 07/12/2023 Personal Safety Answer Date Recorded Have you ever been in or are you currently in a harmful physical or emotional relationship or is someone making you feel afraid or unsafe? 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 The CKD-EPI equation should not be used for patients with unstable renal function and has not been validated in children and those over 70. Current interpretive data was last reviewed 2020. Blood 09/02/2024 4:27 PM CDT 09/02/2024 6:54 PM CDT Edson Vega MD LAB BLOOD ORDERABLES Final Re sult Performing Organization Address City/[facility]/ZIP Co de Phone Number [facility] [place] [address] * Critical Result Callback Chemistry (09/02/2024 4:27 PM CDT) Date Notified [id number] Time Notified 19:35 [facility] TestName Potassium Plas [facility] Called/Read Back Rhys [facility] Credentials MD [facility] Called By [facility] Blood 09/02/2024 4:27 PM CDT 09/02/2024 6:54 PM CDT Edson Vega MD LAB BLOOD ORDERABLES Final Re sult Performing Organization Address [facility] [place] [address] * (ABNORMAL) Basic metabolic panel (09/02/2024 4:27 PM CDT) Sodium 141 135 - 145 mmol/L Potassium, pl 7.0(C) 3.3 - 4.9 mmol/L [facility] Chloride 117(H) 97 - 110 mmol/L [facility] CO2 20(L) 22 - 32 mmol/L [facility] Anion gap 4 2 - 15 mmol/L [facility] BUN 25 6 - 25 mg/dL [facility] Creatinine 1.57(H) 0.60 - 1.10 mg/dL [facility] Glucose 118 70 - 199 mg/dL [facility] Comment: Interpretive Data Fasting glucose >/= 126 [...] classification and Diagnosis of Diabetes Diabetes Care 2021; 46: S19-S40. Current interpretive data was last revised 2022. Calcium 10.0 8.5 - 10.3 mg/dL [facility] Blood 09/02/2024 4:27 PM CDT 09/02/2024 6:50 PM CDT us Edson Vega MD LAB BLOOD ORDERABLES Final Re sult [facility] [place] [address] * (ABNORMAL) Pro B-type natriuretic peptide (09/02/2024 [...] Heart J. 2006:27:330-337. 2. Annabelle RW, Nika BRITO. J. AM [facility] Cardiol: Cardiovasc Imag. 2009;2: 216- 225. Interpretive Data Last Revised Date: 2017. Blood 09/02/2024 4:27 PM CDT 09/02/2024 6:50 PM CDT us Edson Vega MD LAB BLOOD ORDERABLES Final Re sult [facility] Department of Laboratories [place], [place] [id number] documented in this encounter Visit Diagnoses Diagnosis Paroxysmal atrial fibrillation with RVR (HCC) Atrial fibrillation (HCC) Atrial fibrillation documented in this encounter Care Teams Group Work Program Aide Relationship Specialty Start Date End Date Denis Hansen MD [address] [place] [address] PCP - General 12/26/16 Suzanne Klein MD [address] [place], [place] [address] Medical Oncologist/Gas Meter Installer Hematology 06/09/21 documented as of this encounter
--- OUTSIDE RECORDS SUMMARY | 2024-09-02 20:15 | XMS_ITS | Encounter Summary ---
Author Organization [facility] Address [address] [place] [address] Phone Care Team Providers Care Gear Grinder Name Role Phone Denis Hansen MD Primary Care Provider [phone] Suzanne Klein MD Unavailable [phone] Reason for Referral * Cardiology (Routine) - Pending Review Specialty Diagnoses / Procedures Referred By Contac t Referred To Contact Diagnoses Hepatopulmonary syndrome (HCC) Procedures Transthoracic Echo (TTE) Limited/Followup Edson Vega MD [address] [address] Phone: tel: fax: [address] [address] Referral ID Status Reason Start Date Expiration Date V isits Requested Visits Authorized [id number] Pending Review 09/02/2024 10/02/2025 1 1 Reason for Visit * Consultation (Routine) - Authorized Specialty Diagnoses / Procedures Referred By Contac t Referred To Contact Cardiology Diagnoses Atrial fibrillation (HCC) Denis Hansen MD [address] [place] [address] Phone: tel: fax: [facility] (All Locations) Referral ID Status Reason Start Date Expiration Date Visits Requested Visits Authorized [id number] Authorized Specialty Services Required 08/21/2024 09/20/2025 12 12 Encounter Details Date Type Department Care Team (Late st Contact Info) Description 09/02/2024 3:15 PM CDT Office Visit [facility] Cardiology [address] [place] [address] Edson Vega MD [address] [facility] [address] [place] [address] Paroxysmal atrial fibrillation with RVR (HCC) (Primary Dx); Atrial fibrillation (HCC); Leg swelling; Hepatopulmonary syndrome (HCC) Social History Tobacco Use Types Packs/Day Years Used Date Smoking Tobacco: Never Passive Smoke Exposure: Never Smokeless Tobacco: Never Tobacco Cessation:Counseling Given: Not Answered Alcohol Use Standard Drinks/Week Comments No 0 (1 standard drink = 0.6 oz pur e alcohol) [facility] Utilities Answer Date Recorded In the past 12 months has [employer], gas, oil, or water [employer] threatened to shut off services in your [...] week 07/12/2023 How often do you attend [facility] or yazdanism services? More than 4 times per year 07/12/2023 Do you belong to any clubs o r organizations such as congregation groups, unions, fraternal or athletic groups, or [...] any time in the past 12 m [facility], were you homeless or living in a senior care (including now)? No 07/12/2023 Personal Safety Answer Date Recorded Have you ever been in or are you currently in a harmful physical or emotional relationship or is someone making you feel afraid or unsafe? 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 No t on file documented as of this encounter Last Filed Vital Signs Vital Sign Reading Time Taken Comments Blood Pressure 95/64 09/02/2024 2:35 PM CDT Pulse 81 09/02/2024 2:35 PM CDT Temperature 36.6 C (97.8 F) 09/02/2024 2:35 PM CDT Respiratory Rate - - Oxygen Saturation 98% 09/02/2024 2:35 PM CDT Inhaled Oxygen Concentration - - Weight 56.8 kg (125 lb 3.2 oz) 09/02/2024 2:35 P M CDT Height 162.6 cm (5' 4.02) 09/02/2024 2:35 PM CD T Body Mass Index 21.48 09/02/2024 2:35 PM CDT documented in this encounter Patient Instructions * Patient Instructions* Edson Vega MD - 09/02/2024 3:15 PM CDT Labwork: BMP, NTproBNP. Anticipate switching from furosemide to a different diuretic medication called bumetanide. Typically we will repeat labwork after one week to ensure your kidney function is fine. Will see if the echo bubble study can be done along with another visit for you or Mr. Dinh. Continue using the wheeled walker as much as possible. documented in this encounter Plan of Treatment Scheduled Orders Name Type Priority Associated Diagnoses Order Schedule Transthoracic Echo (TTE) Limited/Followup Echocardiography Routine Hepatopulmonary syndrome (HCC) Expected: 09/09/2024, Expires: 12/03/2025 documented as of this encounter Results * (ABNORMAL) Pro B-type natriuretic peptide (09/02/2024 [...] MD LAB BLOOD ORDERABLES Final Re sult [facility] One [facility] Department [place] [address] * (ABNORMAL) Basic metabolic panel (09/02/2024 4:27 PM CDT) Sodium 141 135 - 145 mmol/L Potassium, pl 7.0(C) 3.3 - 4.9 mmol/L [facility] Chloride 117(H) 97 - 110 mmol/L [facility] CO2 20(L) 22 - 32 mmol/L [facility] Anion gap 4 2 - 15 mmol/L [facility] BUN 25 6 - 25 mg/dL [facility] Creatinine 1.57(H) 0.60 - 1.10 mg/dL [facility] Glucose 118 70 - 199 mg/dL [facility] Comment: Interpretive Data Fasting glucose >/= [...] 2022. Calcium 10.0 8.5 - 10.3 mg/dL [facility] Blood 09/02/2024 4:27 PM CDT 09/02/2024 6:50 PM CDT us Edson Vega MD LAB BLOOD ORDERABLES Final Re sult [facility] One [facility] Department of Laboratories [place], [place] [id number] documented in this encounter Visit Diagnoses Diagnosis Paroxysmal atrial fibrillation with RVR (HCC)- Primary Atrial fibrillation (HCC) Atrial fibrillation Leg swelling Swelling of limb Hepatopulmonary syndrome (HCC) Hepatopulmonary syndrome documented in this encounter Orders Outpatient Referral Count Last Ordered Date Fir st Ordered Date AMB REFERRAL TO CARDIOLOGY 1 09/02/2024 documented in this encounter Care Teams Gear Grinder Relationship Specialty Start Date End Date Denis Hansen MD [address] [place] [address] PCP - General 12/26/16 Suzanne Klein MD [address] [place] [address] Medical Oncologist/Oenologist Hematology 06/09/21 documented as of this encounter
--- OUTSIDE RECORDS SUMMARY | 2024-09-02 20:15 | XMS_ITS | Encounter Summary ---
Author Organization [facility] Address [address] [place] [address] Phone Care Team Providers Care Senior Planner Name Role Phone Denis Hansen MD Primary Care Provider Suzanne Klein MD Unavailable Laurence Oden [facility] Unavailable Encounter Details Date Type Department Care Team (Late st Contact Info) Description 05/12/2022 Telephone [facility] Cardiology [address] [facility] Advanced Medicine 8th [place] [address] [place] [address] Edson Vega MD [address] [place] [address] Social History Tobacco Use Types Packs/Day Years Used Date Smoking Tobacco: Never Smokeless Tobacco: Never Alcohol Use Standard Drinks/Week Comments No 0 (1 standard drink = 0.6 oz pur e alcohol) AUDIT-C Answer Date Recorded Q1: How often do you have a drink containing alcohol? Never 04/19/2022 Q2: How many drinks containi ng alcohol do you have on a typical day when you are drinking? Patient does not drink Q3: How often do you have si x or more drinks on one occasion? 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 Not on file No t on file documented as of this encounter Plan of Treatment Not on file documented as of this encounter Visit Diagnoses Not on filedocumented in this encounter Care Teams Senior Planner Relationship Specialty Start Date End Date Denis Hansen MD [address] [place] [address] PCP - General 12/26/16 Suzanne Klein MD [address] [place] [address] Medical Oncologist/Middle School Principal Hematology 06/09/21 Laurence Oden LCSW [address] [employer] ([id number] [place] [address] [employer]OP Outpatient Trim Setter Helper 07/12/23 08/09/23 documented as of this encounter
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
--- NOTE | 2024-09-02 20:18 | ECG_ITS ---
Test Date: 2024-09-02 20:30:13 Measurements Intervals [place] Rate: 80 P: 0 NE: 0 QRS: -30 QRSD: 96 T: 12 QT: 351 QTc: 407 Interpretive Statements ATRIAL FIBRILLATION BORDERLINE LEFT AXIS DEVIATION [QRS AXIS < -20] NONSPECIFIC T-WAVE ABNORMALITY ABNORMAL RHYTHM ECG Compared to ECG 02/20/2024 12:20:20 NO SIGNIFICANT CHANGE Electronically Signed On 09-03-2024 10:23:39 CDT by Shaun Lr M.D.
--- NOTE | 2024-09-02 20:25 | ED.GENADULT ---
HPI - General Adult General Chief complaint: Recheck/Abnormal Lab/Rx Stated complaint: abnormal lab Time Seen by Provider: 09/02/24 20:25 Source: patient and family Mode of arrival: ambulatory Limitations: no limitations History of Present Illness HPI narrative: patient referred to the emergency room by her drivability technician elevated potassium level. 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 History of hyperlipidemia, primary biliary cirrhosis, atrial fibrillation on Eliquis And potassium supplement. Patient had a phone call to go to the emergency room immediately because her potassium level is 8 Related Data Home Medications ?Medication ?Instructions ?Recorded ?Confirmed ?Last Taken ?Type pravastatin 20 mg tablet 10 mg PO DAILY 05/04/21 11/12/23 11/12/23 History omeprazole 40 mg capsule,delayed 40 mg PO DAILY 05/12/22 11/12/23 11/12/23 History release ursodiol 500 mg tablet 500 mg PO BID 05/12/22 11/12/23 11/12/23 History lactulose 10 gram/15 mL oral 20 ml PO TID 12/06/22 11/12/23 11/12/23 History solution rifaximin 200 mg tablet (Xifaxan) 550 mg PO BID 10/20/23 11/12/23 11/12/23 History acetaminophen 650 tablet PO Q6H PRN Pain 11/12/23 11/12/23 11/12/23 History gabapentin 100 mg capsule 100 mg PO HS 09/02/24 Unknown History metoprolol succinate 25 mg 12.5 mg PO Q12H 09/02/24 Unknown History tablet,extended release 24 hr potassium chloride 20 mEq 20 meq PO DAILY 09/02/24 Unknown History tablet,extended release(part/cryst) spironolactone 50 mg tablet 50 mg PO DAILY 09/02/24 Unknown History Allergies Allergy/AdvReac Type Severity Reaction Status Date / Time Sulfa (Sulfonamide Allergy Hives Verified 12/06/22 14:07 Antibiotics) Review of Systems Review of Systems: All systems reviewed & are unremarkable except as noted in HPI and below PMFSH Past Medical History Medical History Esophagitis Hypotension GERD (gastroesophageal reflux disease) Hyperlipidemia CHF (congestive heart failure) Afib Social History Social History Smoking status: Never smoker Alcohol intake: never Substance use: never Do You Feel Safe in your Home?: Yes Lack of Transportation: No Lack of Food: Never True Current Housing: I Have Housing Concerned About Future Housing: No Difficulty Paying Gas/Electric Bills: No Difficulty Paying for Meds: No Currently Unemployed: No Education: Bachelor's Degree Difficulty w/ Childcare or Family Care: No Spiritual care concerns: No Exam Narrative: General appearance: Well-developed, well-nourished Skin: Normal color, 1+ edema lower extremity bilaterally Head: Normocephalic, nontraumatic Eyes: Clear conjunctiva ENT: Oropharynx normal, ears normal, nose normal Neck: Supple, nontender Chest and respiratory: Airway patent, no respiratory distress, no accessory muscle use Heart: irregular irregularity Abdomen: Soft, nontender, no organomegaly, quiet bowel sounds Vascular: Normal peripheral pulses, normal capillary refill. Musculoskeletal: Normal range of motion, nontender back Neurologic: Alert and oriented ?3, CONSTRUCTION CONSULTANT is normal as tested, no gross motor deficit Course Vital Signs Vital signs: Vital Signs Pulse Rate 103 H 09/02/24 20:19 Respiratory Rate 09/02/24 20:19 Temperature 36.6 C 09/02/24 20:20 Pulse Rate 103 H 09/02/24 22:01 Respiratory Rate 09/02/24 22:01 Blood Pressure 105/56 L 09/02/24 22:01 Pulse Oximetry 100 09/02/24 22:01 Oxygen Delivery Room Air 09/02/24 20:45 Medical Decision Making MDM Narrative Medical decision making narrative: patient referred to the emergency room by her drivability technician for elevated potassium level. Patient was seen her drivability technician today and was asymptomatic, came to the emergency room and is asymptomatic. Blood workup today showed potassium level of 7.5, EKG showed no hyperkalemia criteria. Patient received hyperkalemia medication protocol, Repeated potassium level showed improvement, currently 5.5. Patient was advised to hold potassium supplement at home for 48 hours and contact her drivability technician in the morning for follow-up. Differential Diagnosis Differential Diagnosis: Hyperkalemia high likely secondary to potassium supplement Vital Signs Vital Signs: Vital Signs Pulse Rate 103 H 09/02/24 20:19 Respiratory Rate 09/02/24 20:19 Temperature 36.6 C 09/02/24 20:20 Pulse Rate 103 H 09/02/24 22:01 Respiratory Rate 19 09/02/24 22:01 Blood Pressure 105/56 L 09/02/24 22:01 Pulse Oximetry 100 09/02/24 22:01 Oxygen Delivery Room Air 09/02/24 20:45 Lab Data 09/02/24 23:54 09/02/24 23:54 Labs: Lab Results 09/02/24 09/02/24 Range/Units 20:37 23:54 WBC 7.9 (4.8-10.8) K/mm3 RBC 3.11 L (4.20-5.40) M/mm3 Hgb 9.9 L (11.7-13.8) g/dL Hct 30.0 L (35.0-42.0) % MCV 96.5 (78.0-102.0) fL MCH 31.8 H (27.0-31.0) pg MCHC 33.0 (32-36) g/dL RDW 18.8 H (11.6-14.4) % Plt Count 243 (150-420) K/mm3 MPV 12.0 H (9.2-11.8) fl Immature Gran % (Auto) Not Reportable Neut % (Auto) Not Reportable Lymph % (Auto) Not Reportable Cowley % (Auto) Not Reportable Eos % (Auto) Not Reportable Baso % (Auto) Not Reportable Lymph # (Auto) Not Reportable Cowley # (Auto) Not Reportable Eos # (Auto) Not Reportable Baso # (Auto) Not Reportable Abs Immat Gran (auto) Not Reportable Absolute Neuts (auto) Not Reportable Absolute Nucleated RBC Not Reportable Neutrophils % (Manual) 70 (46-73) % Band Neutrophils % 0 (0-6) % Lymphocytes % (Manual) 9 L (18-44) % Monocytes % (Manual) 15 H (3-9) % Eosinophils % (Manual) 4 (1-6) % Basophils % (Manual) 2 H (0-1) % Nucleated RBC % Not Reportable Abs Neuts (Manual) 5.53 (1.3-6.7) K/mm3 Abs Lymphs (Manual) 0.71 L (1.1-4.5) K/mm3 Abs Monocytes (Manual) 1.18 H (0.1-0.90) K/mm3 Absolute Eos (Manual) 0.31 (0.02-0.50) K/mm3 Abs Basophils (Manual) 0.15 H (0-0.1) K/mm3 Platelet Estimate Adequate (Adequate) Schistocytes Not Reportable Sodium 139 143 (137-145) mmol/L Potassium 7.5 H* 5.5 H (3.4-5.0) mmol/L Chloride 120 H 120 H (98-107) mmol/L Carbon Dioxide 16 L 17 L (22-30) mmol/L Anion Gap 3 L 6 (4-12) mmol/L BUN 28 H 27 H (7-17) mg/dL Creatinine 1.47 H 1.50 H (0.7-1.0) mg/dL Estim Creat Clear Calc 26 25 ml/min Estimated GFR 34 L 34 L (59 - ) Glucose 92 83 (65-110) mg/dL Calculated Osmolality 293 300 H (285-295) mOsm/kg Calcium 9.1 9.7 (8.4-10.2) mg/dL Total Bilirubin 1.4 H (0.2-1.3) mg/dL AST 57 H (14-36) U/L ALT 20 (6-35) U/L Alkaline Phosphatase 183 H (38-126) U/L Total Protein 6.8 (6.3-8.2) g/dL Albumin 2.7 L (3.5-5.1) g/dL Critical Care Time Critical Care Time Critical Care Time: No Discharge Plan Discharge Clinical Impression: Acute hyperkalemia Patient Disposition: Home Condition: Improved Instructions: Hyperkalemia (ED) Additional Instructions: Return if symptoms are worsening , call your family physician for appointment, take Tylenol as as needed for aches and pain, continue home medications. Hold potassium supplement for 2 days. Then resume your potassium supplement after talking to your drivability technician Patient Language: Niuean Prescriptions: No Action pravastatin 20 mg Tablet 10 mg PO DAILY lactulose 10 gram/15 mL solution 20 ml PO TID gabapentin 100 mg capsule 100 mg PO HS metoprolol succinate 25 mg tablet extended release 24 hr 12.5 mg PO Q12H potassium chloride 20 mEq tablet,ER particles/crystals 20 meq PO DAILY spironolactone 50 mg tablet 50 mg PO DAILY omeprazole 40 mg capsule,delayed release(DR/EC) 40 mg PO DAILY ursodiol 500 mg tablet 500 mg PO BID Xifaxan 200 mg Tablet 550 mg PO BID acetaminophen 650 tablet PO Q6H PRN (Reason: Pain) oxycodone 5 mg Tablet 5 mg PO Q8H PRN (Reason: Pain Rated 7-10) Qty: 20 0RF pantoprazole 40 mg Tablet,Delayed Release (Dr/Ec) 40 mg PO DAILY Qty: 30 0RF docusate sodium 100 mg Capsule 100 mg PO BID PRN (Reason: Constipation) Qty: 60 0RF calcium carbonate 500 mg calcium (1,250 mg) Tablet,Chewable 200 mg PO Q2H PRN (Reason: Indigestion) Qty: 90 0RF ferrous sulfate 325 mg (65 mg iron) Tablet,Delayed Release (Dr/Ec) 325 mg PO DAILY Qty: 30 0RF cholecalciferol (vitamin D3) 125 mcg (5,000 unit) Tablet 5,000 unit PO DAILY Qty: 30 0RF multivitamin with folic acid [Thera] 400 mcg Tablet 1 tablet PO QAM Qty: 30 0RF methocarbamol 500 mg Tablet 1,000 mg PO TID Qty: 90 0RF lidocaine [Blue-Emu Lidocaine Patch] 4 % Adhesive Patch,Medicated 2 patch TOPICAL DAILY Qty: 30 0RF polyethylene glycol 3350 17 gram Powder In Packet 17 g PO DAILY Qty: 30 0RF midodrine 2.5 mg tablet 2.5 mg PO TID Qty: 90 0RF Eliquis 5 mg Tablet 5 mg PO BID Qty: 60 0RF Follow-up/Referrals: Denis Hansen MD [Primary Care Provider] -
[2024-09-02 20:51] LABS: Alanine Aminotransferase 20 U/L (6-35); Albumin Level 2.7 g/dL (3.5-5.1); Alkaline Phosphatase 183 U/L (38-126); Anion Gap 3 mmol/L (4-12); Aspartate Amino Transferase 57 U/L (14-36); Bilirubin,Total 1.4 mg/dL (0.2-1.3); Blood Urea Nitrogen 28 mg/dL (7-17); Calcium 9.1 mg/dL (8.4-10.2); Carbon Dioxide 16 mmol/L (22-30); Chloride 120 mmol/L (98-107); Estimated CRCL calculation 26 ml/min; Estimated Glomerular Filt Rate 34; Glucose 92 mg/dL (65-110); Osmolality Calculated 293 mOsm/kg (285-295); Sodium 139 mmol/L (137-145); Total Protein 6.8 g/dL (6.3-8.2)
--- OUTSIDE RECORDS SUMMARY | 2024-09-02 20:51 | XMS_ITS | Encounter Summary ---
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
--- OUTSIDE RECORDS SUMMARY | 2024-09-02 20:51 | XMS_ITS | Encounter Summary ---
Author Organization [facility] Address [address] [place] [address] Care Team Providers Care Kennel Assistant Name Role Phone Denis Hansen MD Primary Care Provider [phone] Encounter Details Date Type Department Care Team (Latest Contact Info) Description 11/12/2017 Abstract [facility] Michell Ruelas MD Social History [...] on filedocumented in this encounter Care Teams Kennel Assistant Relationship Specialty Start Date End Date Denis Hansen MD [address] [place] [id number] PCP - General INTERNAL MEDICINE 11/11/17 documented as of this encounter
--- OUTSIDE RECORDS SUMMARY | 2024-09-02 20:51 | XMS_ITS | Encounter Summary ---
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) Mailstop [phone] [place] [address] SHOP Outpatient Brakeshoe Repairer 07/12/23 08/09/23 documented as of this encounter
--- OUTSIDE RECORDS SUMMARY | 2024-09-02 20:51 | XMS_ITS | Encounter Summary ---
Author Organization [facility] Address [address] [place] [address] Phone Care Team Providers Care Organ Tuner Name Role Phone Denis Hansen MD Primary Care Provider [phone] Suzanne Klein MD Unavailable Laurence Oden [facility] Unavailable Encounter Details Date Type Department Care Team (Late st Contact Info) Description 05/12/2022 Telephone 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 Not on file No t on file documented as of this encounter Plan of Treatment Not on file documented as of this encounter Visit Diagnoses Not on filedocumented in this encounter Care Teams Organ Tuner Relationship Specialty Start Date End Date Denis Hansen MD [address] [place] [address] PCP - General 12/26/16 Suzanne Klein MD [address] [place] [address] Medical Oncologist/[employer] Advisor Hematology 06/09/21 Laurence Oden LCSW [address] [facility] [place] [phone] [place] [address] [facility]OP Outpatient Dehydrogenation Converter Operator 07/12/23 08/09/23 documented as of this encounter
--- OUTSIDE RECORDS SUMMARY | 2024-09-02 20:51 | XMS_ITS | Encounter Summary ---
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
--- OUTSIDE RECORDS SUMMARY | 2024-09-02 20:51 | XMS_ITS | Encounter Summary ---
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
--- OUTSIDE RECORDS SUMMARY | 2024-09-02 20:51 | XMS_ITS | Encounter Summary ---
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
--- OUTSIDE RECORDS SUMMARY | 2024-09-02 20:51 | XMS_ITS | Encounter Summary ---
Author Organization [facility] Address [address] [place] [address] Care Team Providers Care Drums Teacher Name Role Phone Denis Hansen MD Primary Care Provider [phone] Suzanne Klein MD Unavailable [phone] Reason for Referral * MRI/CAT/PET Scan (Routine) - Closed Specialty Diagnoses / Procedures Referred By [facility] Referred To Contact Radiology Diagnoses Primary biliary cirrhosis (HCC) Autoimmune hepatitis (HCC) Procedures MRI Abdomen Liver W WO Contrast Fariha Low MD [address] [address] Phone: tel: fax: [facility] Referral ID Status Reason Start Date Expiration Date Visits Re quested Visits Authorized [id number] Closed 03/04/2024 04/03/2025 1 1 Reason for Visit * MRI/CAT/PET Scan (Routine) - Closed Specialty Diagnoses / Procedures Referred By [facility] Referred To Contact Radiology Diagnoses Primary biliary cirrhosis (HCC) Autoimmune hepatitis (HCC) Procedures MRI Abdomen Liver W WO Contrast Fariha Low MD [address] [address] Phone: tel: fax: [facility] Referral ID Status Reason Start Date Expiration Date Visits Re quested Visits Authorized [id number] Closed 03/04/2024 04/03/2025 1 1 Encounter Details Date Type Department Care Team (Latest Contact Info) Description 09/02/2024 10:50 AM CDT Hospital Encounter [facility] [address] [place] [address] Fariha Low MD [address] [place] [address] Primary biliary cirrhosis (HCC); Autoimmune hepatitis (HCC) Social History Tobacco Use Types Packs/Day Years Used Date Smoking Tobacco: Never Passive Smoke Exposure: Never Smokeless Tobacco: Never Alcohol Use Standard Drinks/Week Comments No 0 (1 standard drink = 0.6 oz pur e alcohol) [facility] Utilities Answer Date Recorded In the past 12 months has e [employer], gas, oil, or water [employer] threatened to shut off services in your [...] often do you attend chur ch or yarsani services? More than 4 times per year 07/12/2023 Do you belong to any clubs o r organizations such as mandaeism groups, unions, fraternal or athletic groups, or [...] any time in the past 12 m [facility], were you homeless or living in a penitentiary (including now)? No 07/12/2023 Personal Safety Answer Date Recorded Have you ever been in or are you currently in a harmful physical or emotional relationship or is someone making you feel afraid or unsafe? 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
--- OUTSIDE RECORDS SUMMARY | 2024-09-02 20:51 | XMS_ITS | Encounter Summary ---
Author Organization [facility] Address [address] [place] [address] Phone Care Team Providers Care Mold Capper Name Role Phone Denis Hansen MD Primary Care Provider Suzanne Klein MD Unavailable [phone] Reason for Referral * Cardiology (Routine) - Pending Review Specialty Diagnoses / Procedures Referred By Contac t Referred To Contact Diagnoses Hepatopulmonary syndrome (HCC) Procedures Transthoracic Echo (TTE) Limited/Followup Edson Vega MD [address] [address] Phone: tel: fax: [address] [address] Referral ID Status Reason Start Date Expiration Date V isits Requested Visits Authorized [id number] Pending Review 09/02/2024 10/02/2025 1 1 Reason for Visit * Consultation (Routine) - Authorized Specialty Diagnoses / Procedures Referred By Contac t Referred To Contact Cardiology Diagnoses Atrial fibrillation (HCC) Denis Hansen MD [address] [place] [address] Phone: tel: fax: [facility] (All Locations) Referral ID Status Reason Start Date Expiration Date Visits Requested Visits Authorized [id number] Authorized Specialty Services Required 08/21/2024 09/20/2025 12 12 Encounter Details Date Type Department Care Team (Late st Contact Info) Description 09/02/2024 3:15 PM CDT Office Visit [facility] Cardiology [address] [place] [address] Edson Vega MD [address] [place] [address] Paroxysmal atrial fibrillation with RVR (HCC) (Primary Dx); Atrial fibrillation (HCC); Leg swelling; Hepatopulmonary syndrome (HCC) Social History Tobacco Use Types Packs/Day Years Used Date Smoking Tobacco: Never Passive Smoke Exposure: Never Smokeless Tobacco: Never Tobacco Cessation:Counseling Given: Not Answered Alcohol Use Standard Drinks/Week Comments No 0 (1 standard drink = 0.6 oz pur e alcohol) [facility] Utilities Answer Date Recorded In the past 12 months has [employer], gas, oil, or water [employer] threatened to shut off services in your [...] week 07/12/2023 How often do you attend [facility] or holiness services? More than 4 times per year 07/12/2023 Do you belong to any clubs o r organizations such as worship groups, unions, fraternal or athletic groups, or [...] any time in the past 12 m [facility], were you homeless or living in a longterm (including now)? No 07/12/2023 Personal Safety Answer Date Recorded Have you ever been in or are you currently in a harmful physical or emotional relationship or is someone making you feel afraid or unsafe? 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 [...] LAB BLOOD ORDERABLES Final Re sult [facility] [address] [facility] [place] [address] * (ABNORMAL) Basic metabolic panel (09/02/2024 4:27 PM CDT) Sodium 141 135 - 145 mmol/L Potassium, pl 7.0(C) 3.3 - 4.9 mmol/L [facility] Chloride 117(H) 97 - 110 mmol/L [facility] CO2 20(L) 22 - 32 mmol/L [facility] Anion gap 4 2 - 15 mmol/L [facility] BUN 25 6 - 25 mg/dL [facility] Creatinine 1.57(H) 0.60 - 1.10 mg/dL [facility] Glucose 118 70 - 199 mg/dL [facility] Comment: Interpretive Data Fasting glucose >/= [...] 2022. Calcium 10.0 8.5 - 10.3 mg/dL [facility] Blood 09/02/2024 4:27 PM CDT 09/02/2024 6:50 PM CDT us Edson Vega MD LAB BLOOD ORDERABLES Final Re sult [facility] Department of Laboratories [place], [place] [id number] documented in this encounter Visit Diagnoses Diagnosis Paroxysmal atrial fibrillation with RVR (HCC)- Primary Atrial fibrillation (HCC) Atrial fibrillation Leg swelling Swelling of limb Hepatopulmonary syndrome (HCC) Hepatopulmonary syndrome documented in this encounter Orders Outpatient Referral Count Last Ordered Date Fir st Ordered Date AMB REFERRAL TO CARDIOLOGY 1 09/02/2024 documented in this encounter Care Teams Mold Capper Relationship Specialty Start Date End Date Denis Hansen MD [address] [place] [address] PCP - General 12/26/16 Suzanne Klein MD [address] [place] [address] Medical Oncologist/Concrete Spreader Hematology 06/09/21 documented as of this encounter
--- OUTSIDE RECORDS SUMMARY | 2024-09-02 20:51 | XMS_ITS | Encounter Summary ---
Author Organization [facility] Address [address] [place] [address] Care Team Providers Care Commercial Litigation Associate Name Role Phone Denis Hansen MD Primary Care Provider Suzanne lKein MD Unavailable Laurence Oden [facility] Unavailable Encounter Details Date Type Department Care Team (Late st Contact Info) Description 10/03/2019 Telephone [facility] [address] [place], [place] [id number] Laura Pérez MD [address] [facility] [address], [place] [id number] Social History Tobacco Use Types Packs/Day Years Used Date Smoking Tobacco: Never Smokeless Tobacco: Never Alcohol Use Standard Drinks/Week Comments No 0 (1 standard drink = 0.6 oz pur e alcohol) Comments Unknown Sex and Gender Information Value Date Recorded Sex Assigned at Not on file Legal Sex Female 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 Gender Identity Not on file Sexual Orientation Not on file 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 No t on file documented as of this encounter Plan of Treatment Not on file documented as of this encounter Visit Diagnoses Not on filedocumented in this encounter Care Teams Commercial Litigation Associate Relationship Specialty Start Date End Date Denis Hansen MD [address] [place] [address] PCP - General 12/26/16 Suzanne Klein MD [address] [place] [address] Medical Oncologist/Elementary School Art Teacher Hematology 06/09/21 Laurence Oden LCSW 9[address] [facility] ([facility]) Mailstop [phone] [place] [address] SHOP Outpatient Asphalt Paving Machine Operator 07/12/23 08/09/23 documented as of this encounter
--- OUTSIDE RECORDS SUMMARY | 2024-09-02 20:51 | XMS_ITS | Encounter Summary ---
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
--- OUTSIDE RECORDS SUMMARY | 2024-09-02 20:51 | XMS_ITS | Encounter Summary ---
Author Organization 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
--- OUTSIDE RECORDS SUMMARY | 2024-09-02 20:51 | XMS_ITS | Encounter Summary ---
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 ([facility]) Mailstop [phone] [place] [address] SHOP Outpatient Numerical Control Tool Programmer 07/12/23 08/09/23 documented as of this encounter
--- OUTSIDE RECORDS SUMMARY | 2024-09-02 20:51 | XMS_ITS | Encounter Summary ---
Author Organization [facility] Address [address] [place] [address] Care Team Providers Care Nurses Director Name Role Phone Denis Hansen MD Primary Care Provider Suzanne Klein MD Unavailable [phone] Encounter Details Date Type Department Care Team (Late st Contact Info) Description 09/02/2024 4:20 PM CDT Lab [facility] [address] [place] [address] Paroxysmal atrial fibrillation with RVR (HCC); Atrial fibrillation (HCC) Social History Tobacco Use Types Packs/Day Years Used Date Smoking Tobacco: Never Passive Smoke Exposure: Never Smokeless Tobacco: Never Alcohol Use Standard Drinks/Week Comments No 0 (1 standard drink = 0.6 oz pur e alcohol) [facility] Utilities Answer Date Recorded In the past 12 months has [employer], gas, oil, or water Where threatened to shut off services in your [...] week 07/12/2023 How often do you attend [facility] or moravian services? More than 4 times per year 07/12/2023 Do you belong to any clubs o r organizations such as hoahaoism groups, unions, fraternal or athletic groups, or [...] any time in the past 12 m [facility], were you homeless or living in a intermediate (including now)? No 07/12/2023 Personal Safety Answer Date Recorded Have you ever been in or are you currently in a harmful physical or emotional relationship or is someone making you feel afraid or unsafe? 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 Not on file [...] ORDERABLES Final Re sult Performing Organization Address City/[facility]/ZIP Co de Phone Number [facility] [place] [address] * Critical Result Callback Chemistry (09/02/2024 4:27 PM CDT) Date Notified [id number] Time Notified 19:35 [facility] TestName Potassium Plas [facility] Called/Read Back Rhys [facility] Credentials MD [facility] Called By [facility] Blood 09/02/2024 4:27 PM CDT 09/02/2024 6:54 PM CDT Edson Vega MD LAB BLOOD ORDERABLES Final Re sult Performing Organization Address [facility] [place] [address] * (ABNORMAL) Basic metabolic panel (09/02/2024 4:27 PM CDT) Sodium 141 135 - 145 mmol/L Potassium, pl 7.0(C) 3.3 - 4.9 mmol/L [facility] Chloride 117(H) 97 - 110 mmol/L [facility] CO2 20(L) 22 - 32 mmol/L [facility] Anion gap 4 2 - 15 mmol/L [facility] BUN 25 6 - 25 mg/dL [facility] Creatinine 1.57(H) 0.60 - 1.10 mg/dL [facility] Glucose 118 70 - 199 mg/dL [facility] Comment: Interpretive Data Fasting glucose >/= 126 [...] MD LAB BLOOD ORDERABLES Final Re [facility] One [facility] Department [place] [address] * (ABNORMAL) Pro B-type natriuretic peptide (09/02/2024 [...] MD LAB BLOOD ORDERABLES Final Re sult [facility] One [facility] Department of Laboratories [place], [place] [id number] documented in this encounter Visit Diagnoses Diagnosis Paroxysmal atrial fibrillation with RVR (HCC) Atrial fibrillation (HCC) Atrial fibrillation documented in this encounter Care Teams Nurses Director Relationship Specialty Start Date End Date Denis Hansen MD [address] [place] [address] PCP - General 12/26/16 Suzanne Klein MD [address] [place], [place] [address] Medical Oncologist/Environmental Health Inspector Hematology 06/09/21 documented as of this encounter
--- OUTSIDE RECORDS SUMMARY | 2024-09-02 20:51 | XMS_ITS | Encounter Summary ---
Author Organization 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
--- OUTSIDE RECORDS SUMMARY | 2024-09-02 20:51 | XMS_ITS | Clinical Summary ---
Author Organization [facility] Address [address] [place] [address] Care Team Providers Care Tool And Die Supervisor Name Role Phone Denis Hansen MD Primary Care Provider [phone] Allergies Active Allergy Reactions Criticality Noted Date [...] continue eliquis for the time being A-fib ([facility]) 11/11/2017 Assessment & Plan (11/11/2017 6:26 PM [...] to complete this topic Insurance MED REPLACE [facility] [place] [address] [facility] [place] [address] Advance Directives * Full Code (Latest Code Status on File) Date Activated Date Inactivated Comments 11/11/2017 6:20 PM 11/14/2017 7:49 PM Care Teams Tool And Die Supervisor Relationship Specialty Start Date End Date Denis Hansen MD [address] [place] [address] PCP - General INTERNAL MEDICINE 11/11/17
[2024-09-02 20:55] LABS: Potassium 7.5 mmol/L (3.4-5.0)
[2024-09-02] MEDS: SODIUM POLYSTYRENE SULFONONATE 15 GM/60 ML BTL 30 GM PO (21:13)
[2024-09-02] MEDS: SODIUM BICARBONATE 8.4% 50 MEQ/50 ML SYRINGE IV PUSH (21:15)
[2024-09-02] MEDS: INSULIN HUMAN REGULAR (*BKC) 1,000 UNITS/10 ML VIAL 10 UNITS IV PUSH (21:21)
[2024-09-02] MEDS: DEXTROSE 50% 25 GM/50 ML SYRINGE IV PUSH (21:25)
[2024-09-02] MEDS: CALCIUM GLUCONATE 1,000 MG/10 ML VIAL 1000 MG IV PUSH (21:30)
[2024-09-02] MEDS: ALBUTEROL SULFATE NEB 2.5 MG/3 ML INH 10 MG INHALATION (21:33)
--- NOTE | 2024-09-02 21:57 | PC.NURSE ---
Pt resting, family at bedside, continuing to monitor, VSS. Meds given as per order. POC discussed w/ pt and family.
[2024-09-02] MEDS: SODIUM BICARBONATE 8.4% 100 MEQ in DEXTROSE 5% 1,000 ML 1,000 ML 50 MEQ IV CONT (23:29)
--- NOTE | 2024-09-02 23:50 | PC.NURSE ---
Call placed to floor for pt admit. Spoke to REAL [facility]utton, will await callback to see if pt can be admitted on bicarb gtt. VSS, continuing to monitor, pt reports no pain or sxs.
[2024-09-02 23:57] LABS: Hematocrit 30.0 % (35.0-42.0); Hemoglobin 9.9 g/dL (11.7-13.8); Mean Corpuscular HGB Conc 33.0 g/dL (32-36); Mean Corpuscular Hemoglobin 31.8 pg (27.0-31.0); Mean Corpuscular Volume 96.5 fL (78.0-102.0); Platelet Count Result 243 K/mm3 (150-420); Red Blood Count 3.11 M/mm3 (4.20-5.40); White Blood Count 7.9 K/mm3 (4.8-10.8)
[2024-09-02] MEDS: MIDODRINE HCL 2.5 MG TABLET PO (23:59)
--- NOTE | 2024-09-03 | CONSULT_PTH ---
PATIENT: Andreina Dinh LOC: [facility] U#:[id number] AGE/SX: 79/F ROOM: RE09/02/[address]: Keke Faustin MD : 1945 BED: DIS: 09/03/2024 SPEC #: [id number] RECD: 09/03/24 07:57 STATUS: SCOT REQ #: [id number] NANI: 09/03/24 00:[address]: Keke Faustin DEPT: [facility] Consult RECD BY: Laurence Shea MLT, ([facility]) ENTERED: 09/03/24 07:58 SP TYPE: Consult OTHR DR: Denis Hansen MD Tissues: A - Peripheral Smear Procedures: Hematology Consult
[2024-09-03 00:09] LABS: Anion Gap 6 mmol/L (4-12); Blood Urea Nitrogen 27 mg/dL (7-17); Calcium 9.7 mg/dL (8.4-10.2); Carbon Dioxide 17 mmol/L (22-30); Chloride 120 mmol/L (98-107); Estimated CRCL calculation 25 ml/min; Estimated Glomerular Filt Rate 34; Glucose 83 mg/dL (65-110); Osmolality Calculated 300 mOsm/kg (285-295); Potassium 5.5 mmol/L (3.4-5.0); Sodium 143 mmol/L (137-145)
[2024-09-03 00:20] LABS: Band Neutrophils Percent 0 % (0-6); Basophils Absolute Manual 0.15 K/mm3 (0-0.1); Basophils Percent Manual 2 % (0-1); Eosinophils Absolute Manual 0.31 K/mm3 (0.02-0.50); Eosinophils Percent Manual 4 % (1-6); Lymphocytes Absolute Manual 0.71 K/mm3 (1.1-4.5); Lymphocytes Percent Manual 9 % (18-44); Monocytes Absolute Manual 1.18 K/mm3 (0.1-0.90); Monocytes Percent Manual 15 % (3-9); Neutrophils Absolute Manual 5.53 K/mm3 (1.3-6.7); Neutrophils Percent Manual 70 % (46-73)
--- NOTE | 2024-09-03 00:44 | PC.NURSE ---
Spoke w/ pt about labs and K+ level and pt is able to be d/c home now and no admit needed. Pt stable, VSS, will d/c home w/ POC for f/u.
--- NOTE | 2024-09-03 00:54 | PC.NURSE ---
Pt called her pouse to come pick her up for d/c home. Instructed pt on f/u care and calling park worker for recheck blood draw in few days. Pt states understanding.
[2024-09-03 01:03] VITALS: BP 99/59; PULSE 81; RESP 20; TEMP 36.5; O2SAT 97
== END 2024-09-03 01:03 | disposition home or self-care (01) ==
PROVIDERS: Emergency Provider Emergency Medicine; PCP Internal Medicine
DX: E87.5 Hyperkalemia (principal); E78.5 Hyperlipidemia, unspecified; I48.91 Unspecified atrial fibrillation; I50.9 Heart failure, unspecified; Z79.01 Long term (current) use of anticoagulants; Z79.899 Other long term (current) drug therapy
CPT/HCPCS: 36415; 80048; 80053; 85025; 93005; 94640; 96365; 96375; 99284; A9270; J0612; J1815; J7070

== ENCOUNTER 2024-09-05 13:50 | Outpatient (CLI) | payer MEDICARE, SELFPAY ==
--- OUTSIDE RECORDS SUMMARY | 2024-09-05 14:07 | XMS_ITS | Encounter Summary ---
Author Organization [facility] Address [address] [place] [address] Phone Care Team Providers Care Water Purification Chemist Name Role Phone Denis Hansen MD Primary Care Provider + [phone] Suzanne Klein MD Unavailable [phone] 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
--- OUTSIDE RECORDS SUMMARY | 2024-09-05 14:07 | XMS_ITS | Encounter Summary ---
Author Organization 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
--- OUTSIDE RECORDS SUMMARY | 2024-09-05 14:07 | XMS_ITS | Encounter Summary ---
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
--- OUTSIDE RECORDS SUMMARY | 2024-09-05 14:07 | XMS_ITS | Encounter Summary ---
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
--- OUTSIDE RECORDS SUMMARY | 2024-09-05 14:07 | XMS_ITS | Encounter Summary ---
Author Organization [facility] Address [address] [place] [address] Care Team Providers Care Machine Grainer Name Role Phone Denis Hansen MD Primary Care Provider [phone] Encounter Details Date Type Department Care Team (Latest Contact Info) Description 11/12/2017 Abstract [facility] Medical Group Michell Ruelas MD Social [...] on filedocumented in this encounter Care Teams Machine Grainer Relationship Specialty Start Date End Date Denis Hansen MD [address] [place] [address] PCP - General INTERNAL MEDICINE 11/11/17 documented as of this encounter
--- OUTSIDE RECORDS SUMMARY | 2024-09-05 14:07 | XMS_ITS | Encounter Summary ---
Author Organization [facility] Address [address] [place] [address] Phone Care Team Providers Care Width Stripper Name Role Phone Denis Hansen MD Primary Care Provider Suzanne Klein MD Unavailable [phone] Laurence Oden 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
--- OUTSIDE RECORDS SUMMARY | 2024-09-05 14:07 | XMS_ITS | Clinical Summary ---
Author Organization [facility] Address [address] [place] [address] Care Team Providers Care Collator Hand Name Role Phone Denis Hansen MD Primary Care Provider [phone] Allergies Active Allergy Reactions Criticality Noted Date [...] continue eliquis for the time being A-fib ([facility]) 11/11/2017 Assessment & Plan (11/11/2017 6:26 PM [...] to complete this topic Insurance MED REPLACE [facility] [place] [address] [place] [address] Advance Directives * Full Code (Latest Code Status on File) Date Activated Date Inactivated Comments 11/11/2017 6:20 PM 11/14/2017 7:49 PM Care Teams Collator Hand Relationship Specialty Start Date End Date Denis Hansen MD [address] [place] [address] PCP - General INTERNAL MEDICINE 11/11/17
--- OUTSIDE RECORDS SUMMARY | 2024-09-05 14:08 | XMS_ITS | Encounter Summary ---
Author Organization [facility] Address [address] [place] [address] Phone Care Team Providers Care Director Patient Financial Services Name Role Phone Denis Hansen MD Primary Care Provider Suzanne Klein MD Unavailable [phone] Encounter Details Date Type Department Care Team (Late st Contact Info) Description 09/03/2024 Telephone [facility] [address] [facility] 8th [place] [address] [place] [address] Edson Vega MD [address] [facility] [address] [place], [place] [id number] Social History Tobacco Use Types Packs/Day Years Used Date Smoking Tobacco: Never Passive Smoke Exposure: Never Smokeless Tobacco: Never Alcohol Use Standard Drinks/Week Comments No 0 (1 standard drink = 0.6 oz pur e alcohol) [facility] Utilities Answer Date Recorded In the past 12 months has [employer] electric, gas, oil, or water company threatened [...] often do you attend chur ch or catholic services? More than 4 times per year [...] any time in the past 12 m [facility], were you homeless or living in a senior living (including now)? No 07/12/2023 Personal Safety Answer Date Recorded Have you ever been in or are you currently in a harmful physical or emotional relationship or is someone making you feel afraid or unsafe? 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 Pt will have labs done today. Lab order faxed to: [facility] att: Lab * Telephone Encounter - Reji Ly RN - 09/05/2024 12:34 PM CDT From [facility] 09/05/24: Diane Patient's daughter called requesting lab orders to be sent to [facility]. She would also like to discuss questions she has regarding lasix. Adelita can be reached at [phone]. * Addendum Note - Reji Ly RN - 09/05/2024 11:08 AM CDTAddended by: REJI LY on: 09/05/2024 11:08 AM Modules accepted: Orders * Telephone Encounter - Reji Ly RN - 09/05/2024 11:07 AM CDT LMOR for pt's daughter with recs to: STOP shanna STOP potassium Repeat BMP today Asked her to call back to confirm preferred lab location. * Telephone Encounter - Edson Vega MD - 09/05/2024 11:05 AM CDT Reviewed OSH ED records: K 7.5 on presentation, improved at 5.5 on repeat labs. Please discontinue spironolactone and potassium, repeat bmp today. Will decide on diuretics pending repeat labs. * Telephone Encounter - Reji Ly RN - 09/04/2024 1:25 PM CDT Routed to Dr. Vega via cc'd charts. * Telephone Encounter - Mica Adrian - 09/04/2024 1:24 PM CDT Patient ER records from [facility] are in the patient chart * Telephone Encounter - Mica Adrian - 09/04/2024 12:37 PM CDT Records requested from [facility] * Telephone Encounter - Reji Ly RN - 09/04/2024 12:15 PM CDT From [facility] 09/04/24: DIANE PT'S DTR RETURNING CALL IN REGARDS TO PT'S 09/02 ER VISIT [facility]- Mica please request records. Spoke with pt's daughter. Pt went to ER on Monday - K was 7.5/ Was treated for hyperK. 4 hours later, K was 5.5- they discharged her. She reports pt had not been taking furosemide regularly, but continued to take potassium, so thinksthat was why it was so elevated. She said pt take furosemide just PRN for leg swelling. I told her I would send a note to Dr Vega for recs on switching from furosemide to bumex and how to supplement potassium and be in touch. She is coming back for limited TTE on 09/09- I told her we likely will plan for repeat labs then, too. Adelita requested I call her home number @ [phone] * Telephone Encounter - Reji Ly RN - 09/04/2024 11:07 AM CDT allyve message sent to pt asking for update from ER eval on Monday . * Telephone Encounter - Reji Ly RN - 09/04/2024 10:57 AM CDT LMOR for pt to return call. * Telephone Encounter - Reji Ly RN - 09/03/2024 10:49 AM CDT Images from the original note were not included. Edson Vega MD P Wu Card Diane Clinical Pool BMP notable for nonanion gap metabolic acidosis and hyperkalemia to 7.0, GLORIA Cr 1.57 from baseline 1.1-1.26. NTproBNP elevated to 1498, consistent with volume overload. Last available value 643 from 7 years ago. - patient was to have labs rechecked at an OSH ED to confirm hyperkalemia and institute treatment. Please obtain OSH labs + records. - pending the above, will consider switching from furosemide to bumetanide. * Telephone Encounter - Reji Ly RN - 09/03/2024 10:01 AM CDT LMOR for pt to return call to discuss ER eval of elevated potassium. Note from Immunology Teacher MD 09/02/24: Andreina Dinh 47: 79-year-old female with past medical history of atrial fibrillation on anticoagulation, NSVT, primary biliary cirrhosis/autoimmune hepatitis, Pituitary adenoma with possible [place]'s, gastric bypasssurgery. Lab calls because of critical value of potassium of seven. Called patient. She is asymptomatic. She agrees to go to her local emergency room for redraw and potential hyperkalemia management. * Telephone Encounter - Carmelita Garcia - 09/03/2024 8:45 AM CDT Diane Pt calling to speak with a nurse in regards to following up from her visit to the emergency room yesterday. documented in this encounter Plan of Treatment Scheduled Orders Name Type Priority Associated Diagnoses Orde r Schedule Basic metabolic panel Lab Routine Hyperkalemia Medication course changed Expected: 09/05/2024, Expires: 09/05/2025 documented as of this encounter Visit Diagnoses Diagnosis Hyperkalemia- Primary Hyperpotassemia Medication course changed documented in this encounter Discontinued Medications Medication Sig Discontinue Reason Start Date End Da te spironolactone (ALDACTONE) 50 mg tabletIndications:Primar y biliary cirrhosis (HCC),Other cirrhosis of liver (HCC) TAKE ONE TABLET BY MOUTH DAILY Therapy completed 08/26/2024 09/05/2024 potassium chloride ER 20 mEq CR tablet Therapy completed 07/10/2024 09/05/2024 documented as of this encounter Care Teams Director Patient Financial Services Relationship Specialty Start Date End Date Denis Hansen MD [address] [place] [address] PCP - General 12/26/16 Suzanne Klein MD [address] [place] [address] Medical Oncologist/Assistant Coach Hematology 06/09/21 documented as of this encounter
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
--- OUTSIDE RECORDS SUMMARY | 2024-09-05 14:08 | XMS_ITS | Encounter Summary ---
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
--- OUTSIDE RECORDS SUMMARY | 2024-09-05 14:08 | XMS_ITS | Encounter Summary ---
Author Organization [facility] Address [address] [place] [address] Care Team Providers Care Guard Captain Name Role Phone Denis Hansen MD Primary Care Provider Suzanne Klein MD Unavailable Laurence Oden [facility] Unavailable Encounter Details Date Type Department Care Team (Late st Contact Info) Description 10/03/2019 Telephone [facility] [address] [place], [place] [id number] Laura Pérez MD [address] [facility] [address], [place] [id number] Social History Tobacco Use Types Packs/Day Years Used Date Smoking Tobacco: Never Smokeless Tobacco: Never Alcohol Use Standard Drinks/Week Comments No 0 (1 standard drink = 0.6 oz pur e alcohol) Comments Unknown Sex and Gender Information Value Date Recorded Sex Assigned at Not on file Legal Sex Female 8:41 PM CHIPPER OPERATOR Gender Identity Not on file Sexual Orientation Not on file 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 Not on file No t on file documented as of this encounter Plan of Treatment Not on file documented as of this encounter Visit Diagnoses Not on filedocumented in this encounter Care Teams Guard Captain Relationship Specialty Start Date End Date Denis Hansen MD [address] [place] [address] PCP - General 12/26/16 Suzanne Klein MD [address] [place] [address] Medical Oncologist/Brim Buster Hematology 06/09/21 Laurence Oden LCSW [address] [facility] ([facility]) Mailstop [phone] [place] [address] SHOP Outpatient Manager Medical Affairs 07/12/23 08/09/23 documented as of this encounter
--- OUTSIDE RECORDS SUMMARY | 2024-09-05 14:08 | XMS_ITS | Encounter Summary ---
Author Organization [facility] Address [address] [place] [address] Phone Care Team Providers Care Hydrogen Operator Name Role Phone Denis Hansen MD Primary Care Provider Suzanne Klein MD Unavailable [phone] Encounter Details Date Type Department Care Team (Late st Contact Info) Description 09/05/2024 Telephone [facility] Cardiology [address] [facility] Advanced Medicine 8th [place] [address] [place] [address] Edson Vega MD [address] [facility] [address] [place], [place] [id number] Social History Tobacco Use Types Packs/Day Years Used Date Smoking Tobacco: Never Passive Smoke Exposure: Never Smokeless Tobacco: Never Alcohol Use Standard Drinks/Week Comments No 0 (1 standard drink = 0.6 oz pur e alcohol) [facility] Utilities Answer Date Recorded In the past 12 months has [employer], gas, oil, or water company threatened [...] often do you attend chur ch or congregation services? More than 4 times per year 07/12/2023 Do you belong to any clubs o r organizations such as congregational groups, unions, fraternal or athletic groups, or [...] any time in the past 12 m [facility], were you homeless or living in a fdc (including now)? No 07/12/2023 Personal Safety Answer Date Recorded Have you ever been in or are you currently in a harmful physical or emotional relationship or is someone making you feel afraid or unsafe? 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 * Telephone Encounter - Negar Trotter - 09/05/2024 12:11 PM CDT Silvia Patient's daughter called requesting lab orders to be sent to [facility]. She would also like to discuss questions she has regarding lasix. Adelita can be reached at [phone]. documented in this encounter Plan of Treatment Not on file documented as of this encounter Visit Diagnoses Not on filedocumented in this encounter Care Teams Hydrogen Operator Relationship Specialty Start Date End Date Denis Hansen MD [address] [place] [address] PCP - General 12/26/16 Suzanne Klein MD [address] [place] [address] Medical Oncologist/Engineering Teacher Hematology 06/09/21 documented as of this encounter
--- OUTSIDE RECORDS SUMMARY | 2024-09-05 14:08 | XMS_ITS | Encounter Summary ---
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
--- OUTSIDE RECORDS SUMMARY | 2024-09-05 14:08 | XMS_ITS | Encounter Summary ---
Author Organization [facility] Address [address] [place] [address] Phone Care Team Providers Care Warp Tier Name Role Phone Denis Hansen MD Primary Care Provider [phone] Suzanne Klein MD Unavailable [phone] Encounter Details Date Type Department Care Team (Late st Contact Info) Description 09/03/2024 Results Follow-Up [facility] Cardiology [address] [facility] [address] [place] [address] Edson Vega MD [address] [facility] [address] [place] [address] Pro B-type natriuretic peptide, Basic metabolic panel, Critical Result Callback Chemistry, eGFR Social History Tobacco Use Types Packs/Day Years Used Date Smoking Tobacco: Never Passive Smoke Exposure: Never Smokeless Tobacco: Never Alcohol Use Standard Drinks/Week Comments No 0 (1 standard drink = 0.6 oz pur e alcohol) [facility] Utilities Answer Date Recorded In the past 12 months has [employer], gas, oil, or water [employer] threatened to shut off services in your [...] often do you attend chur ch or denominational services? 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 documented in this encounter Plan of Treatment Not on file documented as of this encounter Visit Diagnoses Not on filedocumented in this encounter Care Teams Warp Tier Relationship Specialty Start Date End Date Denis Hansen MD [address] [place] [address] PCP - General 12/26/16 Suzanne Klein MD [address] [place] [address] Medical Oncologist/Manager Floral Hematology 06/09/21 documented as of this encounter
--- OUTSIDE RECORDS SUMMARY | 2024-09-05 14:08 | XMS_ITS | Encounter Summary ---
Author Organization [facility] Address [address] [place] [address] Phone Care Team Providers Care Caustic Room Attendant Name Role Phone Denis Hansen MD Primary Care Provider Suzanne Klein MD Unavailable [phone] Encounter Details Date Type Department Care Team (Late st Contact Info) Description 09/04/2024 Telephone [facility] Cardiology [address] [facility] Advanced Medicine 8th [place] [address] [place] [address] Ritu Liao Social History Tobacco Use Types Packs/Day Years Used Date Smoking Tobacco: Never Passive Smoke Exposure: Never Smokeless Tobacco: Never Alcohol Use Standard Drinks/Week Comments No 0 (1 standard drink = 0.6 oz pur e alcohol) [facility] Utilities Answer Date Recorded In the past 12 months has [employer], gas, oil, or water [employer] threatened to shut off services in your [...] 07/12/2023 How often do you attend chur or quaker services? More than 4 times per year 07/12/2023 Do you belong to any clubs o r organizations such as judaism groups, unions, fraternal or athletic groups, or [...] No 07/12/2023 Housing Stability Vital Sign Answer Adlo e Recorded In the last 12 months, was t here a time when you were not able to pay the mortgage or rent on time? No 07/12/2023 In the past 12 months, how m any times have you moved where you were living? 1 07/12/2023 At any time in the past 12 m [facility], were you homeless or living in a mcc (including now)? No 07/12/2023 Personal Safety Answer Date Recorded Have you ever been in or are you currently in a harmful physical or emotional relationship or is someone making you feel afraid or unsafe? 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 * Telephone Encounter - Ritu Liao - 09/04/2024 11:52 AM CDT DIANE PT'S DTR RETURNING CALL IN REGARDS TO PT'S 09/02 ER VISIT documented in this encounter Plan of Treatment Not on file documented as of this encounter Visit Diagnoses Not on filedocumented in this encounter Care Teams Caustic Room Attendant Relationship Specialty Start Date End Date Denis Hansen MD [address] [place] [address] PCP - General 12/26/16 Suzanne Klein MD [address] [place] [address] Medical Oncologist/Store Host Hematology 06/09/21 documented as of this encounter
--- OUTSIDE RECORDS SUMMARY | 2024-09-05 14:08 | XMS_ITS | Encounter Summary ---
Author Organization [facility] Address [address] [place] [address] Phone Care Team Providers Care Fire Supervisor Name Role Phone Denis Hansen MD Primary Care Provider Suzanne Klein MD Unavailable Laurence Oden [facility] Unavailable Encounter Details Date Type Department Care Team (Late st Contact Info) Description 05/12/2022 Telephone [facility] Cardiology [address] [facility] Advanced Medicine 8th [place] [address] [place] [address] Edson Vega MD [address] [facility] [address] [place] [address] Social History Tobacco Use Types [...] on file Legal Sex Female 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 Gender Identity Not on file Sexual Orientation Not on file 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 Not on file No t on file documented as of this encounter Plan of Treatment Not on file documented as of this encounter Visit Diagnoses Not on filedocumented in this encounter Care Teams Fire Supervisor Relationship Specialty Start Date End Date Denis Hansen MD [address] [place] [address] PCP - General 12/26/16 Suzanne Klein MD [address] [place] [address] Medical Oncologist/Brood Station Manager Hematology 06/09/21 Laurence Oden LCSW [address] [facility] ([facility] [phone] [place] [address] [facility] Outpatient Information Security Manager 07/12/23 08/09/23 documented as of this encounter
--- OUTSIDE RECORDS SUMMARY | 2024-09-05 14:08 | XMS_ITS | Encounter Summary ---
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
--- OUTSIDE RECORDS SUMMARY | 2024-09-05 14:08 | XMS_ITS | Encounter Summary ---
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
[2024-09-05 15:04] LABS: Anion Gap 5 mmol/L (4-12); Blood Urea Nitrogen 22 mg/dL (7-17); Calcium 9.6 mg/dL (8.4-10.2); Carbon Dioxide 20 mmol/L (22-30); Chloride 115 mmol/L (98-107); Estimated Glomerular Filt Rate 47; Glucose 77 mg/dL (65-110); Osmolality Calculated 292 mOsm/kg (285-295); Potassium 5.6 mmol/L (3.4-5.0); Sodium 140 mmol/L (137-145)
== END 2024-09-05 13:51 | disposition home or self-care (01) ==
LOC: CHSLAB 13:53
PROVIDERS: PCP Internal Medicine; Visit Provider Internal Medicine Cardiovascular Disease
DX: E87.5 Hyperkalemia (principal); Z79.899 Other long term (current) drug therapy
CPT/HCPCS: 36415; 80048

== ENCOUNTER 2024-09-16 11:04 | Observation (INO) | payer MEDICARE, SELFPAY ==
[2024-09-16] VITALS (26 sets, daily range): BP systolic 51–92; BP diastolic 42–69; PULSE 74–107; RESP 13–20; TEMP 36.2–36.6; O2SAT 93–100; BMI 21.5
--- NOTE | 2024-09-16 11:10 | ECG_ITS ---
Test Date: 2024-09-16 11:36:34 Measurements Intervals [place] Rate: 80 P: 0 HI: 0 QRS: -5 QRSD: 101 T: -35 QT: 407 QTc: 470 Interpretive Statements ATRIAL FIBRILLATION NONSPECIFIC T-WAVE ABNORMALITY ABNORMAL RHYTHM ECG Compared to ECG 09/02/2024 20:30:13 No significant changes Electronically Signed On 09-18-2024 08:19:16 CDT by Shaun Lr M.D.
--- NOTE | 2024-09-16 11:17 | ED.DIZZY ---
HPI - Dizziness General Chief Complaint: Dizziness Stated Complaint: low blood pressure History of Present Illness HPI Narrative: Pt presents with dizziness when she stands and weakness. Pt says her ross furnace operator at [place] stopped her lasix ans started her on bumex for leg swelling. Pt says the swelling has resolved but now her BP is low. BP was low at PT and pt brought here. Pt denies melena or CP or SOB. Pt has intermittent KOO. Pt has no focal neuro findings or abd pain. Related Data Home Medications ?Medication ?Instructions ?Recorded ?Confirmed ?Last Taken ?Type pravastatin 20 mg tablet 10 mg PO DAILY 05/04/21 09/16/24 11/12/23 History omeprazole 40 mg capsule,delayed 40 mg PO DAILY 05/12/22 09/16/24 11/12/23 History release ursodiol 500 mg tablet 500 mg PO BID 05/12/22 09/16/24 11/12/23 History lactulose 10 gram/15 mL oral 20 g PO TID 12/06/22 09/16/24 11/12/23 History solution acetaminophen 650 tablet PO Q6H PRN Pain 11/12/23 09/16/24 11/12/23 History gabapentin 100 mg capsule 100 mg PO HS 09/02/24 09/16/24 Unknown History potassium chloride 20 mEq 20 meq PO DAILY 09/02/24 09/16/24 Unknown History tablet,extended release(part/cryst) amoxicillin 875 mg-potassium 1 tablet PO Q12H 09/16/24 09/16/24 Unknown History clavulanate 125 mg tablet bumetanide 1 mg tablet 1 mg PO Q12H 09/16/24 09/16/24 Unknown History rifaximin 550 mg tablet (Xifaxan) 550 mg PO BID 09/16/24 09/16/24 Unknown History Allergies Allergy/AdvReac Type Severity Reaction Status Date / Time Sulfa (Sulfonamide Allergy Hives Verified 09/16/24 11:13 Antibiotics) Review of Systems Review of Systems: All systems reviewed & are unremarkable except as noted in HPI and below PMFSH Past Medical History Medical History Esophagitis Hypotension GERD (gastroesophageal reflux disease) Hyperlipidemia CHF (congestive heart failure) Afib Social History Social History Smoking status: Never smoker Second hand tobacco smoke exposure: No Alcohol intake: never Substance use: never Substance use type: does not use Do You Feel Safe in your Home?: Yes Lack of Transportation: No Lack of Food: Never True Current Housing: I Have Housing Concerned About Future Housing: No Difficulty Paying Gas/Electric Bills: No Difficulty Paying for Meds: No Currently Unemployed: No Education: Bachelor's Degree Difficulty w/ Childcare or Family Care: No Spiritual care concerns: No Exam Const: General: healthy appearing and no acute distress Nutritional Appearance: well nourished Orientation/consciousness: patient oriented x3 Limitations: no limitations HENMT: Head: normal to inspection Ears: TM's normal bilaterally Face and sinus: normal facial exam Mouth: Yes Normal oral and palatal mucosa present Throat: posterior oropharynx normal Eyes: EOM: EOMs intact bilaterally Chest: Chest palpation & inspection: normal inspection of the chest and abnormal inspection of the chest Resp: Effort & Inspection: normal respiratory effort Auscultation: clear to auscultation bilaterally Cardio: Rate: regular rate Rhythm: regular rhythm GI: GI Palp: Yes Soft to palpation and No Tenderness to palpation present (GI) Auscultation: normal bowel sounds Skin: General skin exam: normal color Rashes: no rashes Wounds: no wounds Neuro: General: patient oriented x3, moves all extremities, no meningeal signs, no focal motor deficits and CN's II-XI intact bilaterally Speech: normal speech Extrem: General: normal to inspection and no clubbing, cyanosis or edema Psych: Mental Status: mental status grossly normal Affect: normal affect Attitude: cooperative Course Vital Signs Vital signs: Vital Signs Temperature 97.2 F L 09/16/24 11:05 Pulse Rate 90 09/16/24 11:05 Respiratory Rate 18 09/16/24 11:05 Blood Pressure 92/69 L 09/16/24 11:05 Pulse Oximetry 99 09/16/24 11:05 Oxygen Delivery Room Air 09/16/24 11:05 Temperature 97.3 F L 09/16/24 13:25 Pulse Rate 74 09/16/24 13:25 Respiratory Rate 18 09/16/24 13:25 Blood Pressure 77/53 L 09/16/24 13:25 Pulse Oximetry 99 09/16/24 13:25 Oxygen Delivery Room Air 09/16/24 13:25 MDM - Dizziness MDM Narrative Medical decision making narrative: pt presents with dizziness when standing for a few days getting worse. Pt had recent change from lasix to bumex for leg swelling which has improved but now low bp. i suspect some mild dehydration and hypotension related to that but will need to exclude anemia or renal insufficiency or electrolyte issues as well as cardiac etiologies among others. Will give a liter of fluids. infection is a possibility as pt was just told she has a uti from earlier testing but has not gotten the antibiotics yet. will treat with rocephin 2 g IV since we have that result. pt sbp up to 88 and pt and daughter say this is her baseline. BUN and cr up from baseline so it seems this is dehydration from the bumex. discussed with patient and daughter and agreeable for observation. discussed with asia Gil and accepts observation tonight. Lab Data 09/16/24 14:37 09/16/24 11:21 Labs: Lab Results 09/16/24 Range/Units 11:21 WBC 6.2 (4.8-10.8) K/mm3 RBC 3.32 L (4.20-5.40) M/mm3 Hgb 10.7 L (11.7-13.8) g/dL Hct 31.2 L (35.0-42.0) % MCV 94.0 (78.0-102.0) fL MCH 32.2 H (27.0-31.0) pg MCHC 34.3 (32-36) g/dL RDW 18.6 H (11.6-14.4) % Plt Count 215 (150-420) K/mm3 MPV 12.1 H (9.2-11.8) fl Immature Gran % (Auto) 0.3 H (0.0-0.0) % Neut % (Auto) 70.7 H (50.0-70.0) % Lymph % (Auto) 16.1 L (18.0-42.0) % [place] % (Auto) 8.4 (2.0-11.0) % Eos % (Auto) 3.2 (1.0-6.0) % Baso % (Auto) 1.3 H (0.0-1.0) % Lymph # (Auto) 1.00 L (1.10-4.50) K/mm3 [place] # (Auto) 0.52 (0.10-0.90) K/mm3 Eos # (Auto) 0.20 (0.02-0.50) K/mm3 Baso # (Auto) 0.08 (0.00-0.10) K/mm3 Abs Immat Gran (auto) 0.02 H (0.00-0.00) K/mm3 Absolute Neuts (auto) 4.38 (1.70-7.20) K/mm3 Absolute Nucleated RBC 0.02 H (0.00-0.00) K/mm3 Nucleated RBC % 0.3 H (0-0.0) % Sodium 141 (137-145) mmol/L Potassium 3.1 L (3.4-5.0) mmol/L Chloride 104 (98-107) mmol/L Carbon Dioxide 31 H (22-30) mmol/L Anion Gap 6 (4-12) mmol/L BUN 38 H D (7-17) mg/dL Creatinine 2.00 H (0.7-1.0) mg/dL Estim Creat Clear Calc 18 ml/min Estimated GFR 24 L (59 - ) Glucose 132 H (65-110) mg/dL Calculated Osmolality 303 H (285-295) mOsm/kg Calcium 8.2 L (8.4-10.2) mg/dL Magnesium 2.3 (1.6-2.3) mg/dL Total Bilirubin 1.4 H (0.2-1.3) mg/dL AST 46 H (14-36) U/L ALT 19 (6-35) U/L Alkaline Phosphatase 215 H (38-126) U/L Total Protein 7.0 (6.3-8.2) g/dL Albumin 2.7 L (3.5-5.1) g/dL Discharge Plan Discharge Clinical Impression: Acute hypotension, Acute dehydration, Acute hypokalemia Patient Disposition: Still a Patient Condition: Improved
[2024-09-16] MEDS: SODIUM CHLORIDE 0.9% IV 1,000 ML 999 ML IV CONT (11:22)
[2024-09-16 11:27] LABS: Hematocrit 31.2 % (35.0-42.0); Hemoglobin 10.7 g/dL (11.7-13.8); Immature Granulocyte Percent A 0.3 % (0.0-0.0); Lymphocytes Absolute Auto 1.00 K/mm3 (1.10-4.50); Mean Corpuscular HGB Conc 34.3 g/dL (32-36); Mean Corpuscular Hemoglobin 32.2 pg (27.0-31.0); Mean Corpuscular Volume 94.0 fL (78.0-102.0); Nucleated Red Blood Cells Absolute Auto 0.02 K/mm3 (0.00-0.00); Nucleated Red Blood Cells Perc 0.3 % (0-0.0); Platelet Count Result 215 K/mm3 (150-420); Red Blood Count 3.32 M/mm3 (4.20-5.40); White Blood Count 6.2 K/mm3 (4.8-10.8)
--- OUTSIDE RECORDS SUMMARY | 2024-09-16 11:32 | XMS_ITS | Encounter Summary ---
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
--- OUTSIDE RECORDS SUMMARY | 2024-09-16 11:32 | XMS_ITS | Encounter Summary ---
Author Organization 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
--- OUTSIDE RECORDS SUMMARY | 2024-09-16 11:32 | XMS_ITS | Clinical Summary ---
Author Organization [facility] Address [address] [place] [address] Care Team Providers Care Turpentine Distiller Name Role Phone Denis Hansen MD Primary Care Provider [phone] Allergies Active Allergy Reactions Criticality Noted Date [...] continue eliquis for the time being A-fib ([facility]) 11/11/2017 Assessment & Plan (11/11/2017 6:26 [...] to complete this topic Insurance MED RE[facility] MEDICARE [facility] Advance Directives * Full Code (Latest Code Status on File) Date Activated Date Inactivated Comments 11/11/2017 6:20 PM 11/14/2017 7:49 PM Care Teams Turpentine Distiller Relationship Specialty Start Date End Date Denis Hansen MD [address] [place] [id number] PCP - General INTERNAL MEDICINE 11/11/17
--- OUTSIDE RECORDS SUMMARY | 2024-09-16 11:32 | XMS_ITS | Encounter Summary ---
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
--- OUTSIDE RECORDS SUMMARY | 2024-09-16 11:32 | XMS_ITS | Encounter Summary ---
Author Organization [facility] Address [address] [place] [address] Care Team Providers Care Bead Maker Name Role Phone Denis Hansen MD Primary Care Provider [phone] Encounter Details Date Type Department Care Team (Latest Contact Info) Description 11/12/2017 Abstract [facility] Michell Ruelas MD Social [...] on filedocumented in this encounter Care Teams Bead Maker Relationship Specialty Start Date End Date Denis Hansen MD [address] [place] [id number] PCP - General INTERNAL MEDICINE 11/11/17 documented as of this encounter
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
--- OUTSIDE RECORDS SUMMARY | 2024-09-16 11:32 | XMS_ITS | Encounter Summary ---
Author Organization [facility] Address [address] [place] [address] Phone Care Team Providers Care Credit Review Officer Name Role Phone Denis Hansen MD Primary Care Provider Suzanne Klein MD Unavailable [phone] Encounter Details Date Type Department Care Team (Late st Contact Info) Description 09/05/2024 Telephone [facility] Cardiology [address] [facility] 8th [place] [address] [place] [address] Edson Vega MD [address] [place], [place] [id number] Social History Tobacco Use Types Packs/Day Years Used Date Smoking Tobacco: Never Passive Smoke Exposure: Never Smokeless Tobacco: Never Alcohol Use Standard Drinks/Week Comments No 0 (1 standard drink = 0.6 oz pur e alcohol) [facility] Utilities Answer Date Recorded In the past 12 months has [employer], gas, oil, or water company threatened [...] often do you attend chur ch or hinduism services? 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 * Telephone Encounter - Negar Trotter - 09/05/2024 12:11 PM CDT Silvia Patient's daughter called requesting lab orders to be sent [facility]. She would also like to discuss questions she has regarding lasix. Adelita can be reached at [phone]. documented in this encounter Plan of Treatment Not on file documented as of this encounter Visit Diagnoses Not on filedocumented in this encounter Care Teams Credit Review Officer Relationship Specialty Start Date End Date Denis Hansen MD [address] [place] [address] PCP - General 12/26/16 Suzanne Klein MD [address] [place] [address] Medical Oncologist/Machine Group Leader Hematology 06/09/21 documented as of this encounter
--- OUTSIDE RECORDS SUMMARY | 2024-09-16 11:32 | XMS_ITS | Encounter Summary ---
Author Organization [facility] Address [address] [place] [address] Phone Care Team Providers Care Flap Lining Binder Name Role Phone Denis Hansen MD Primary Care Provider Suzanne Klein MD Unavailable Encounter Details Date Type Department Care Team (Late st Contact Info) Description 09/03/2024 Results Follow-Up [facility] Cardiology [address] [place] [address] Edson Vega MD [address] [facility] [address] [place] [address] Pro B-type natriuretic peptide, Basic metabolic panel, Critical Result Callback Chemistry, Additional followed-up results: 2 Social History Tobacco Use Types Packs/Day Years Used Date Smoking Tobacco: Never Passive Smoke Exposure: Never Smokeless Tobacco: Never Alcohol Use Standard Drinks/Week Comments No 0 (1 standard drink = 0.6 oz pur e alcohol) [facility] Utilities Answer Date Recorded In the past 12 months has [employer], gas, oil, or water [employer] threatened to shut off services in your [...] How often do you attend chur or presybeterian services? 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 Dinh that the echocardiogram did not show any evidence of shunting with the bubble study. Will cc: Dr. Low, as well. Await her response to diuretics. * Result Encounter Note - Edson Vega [...] on filedocumented in this encounter Care Teams Flap Lining Binder Relationship Specialty Start Date End Date Denis Hansen MD [address] [place], [place] [id number] PCP - General 12/26/16 Suzanne Klein MD [address] [place] [address] Medical Oncologist/Supervisor Residential Hematology 06/09/21 documented as of this encounter
--- OUTSIDE RECORDS SUMMARY | 2024-09-16 11:32 | XMS_ITS | Encounter Summary ---
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
--- OUTSIDE RECORDS SUMMARY | 2024-09-16 11:32 | XMS_ITS | Encounter Summary ---
Author Organization [facility] Address [address] [place] [address] Care Team Providers Care Property Supervisor Name Role Phone Denis Hansen MD Primary Care Provider Suzanne Klein MD Unavailable Laurence Oden [facility] Unavailable Encounter Details Date Type Department Care Team (Late st Contact Info) Description 10/03/2019 Telephone 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 Not on file No t on file documented as of this encounter Plan of Treatment Not on file documented as of this encounter Visit Diagnoses Not on filedocumented in this encounter Care Teams Property Supervisor Relationship Specialty Start Date End Date Denis Hansen MD [address] [place] [address] PCP - General 12/26/16 Suzanne Klein MD [address] [place] [address] Medical Oncologist/Jammer Hooker Hematology 06/09/21 Laurence Oden LCSW [address] [facility] [place] [place] Mailstop [phone] [place] [address] SHOP Outpatient Pile Driver Operator Barge Mounted 07/12/23 08/09/23 documented as of this encounter
--- OUTSIDE RECORDS SUMMARY | 2024-09-16 11:32 | XMS_ITS | Encounter Summary ---
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
--- OUTSIDE RECORDS SUMMARY | 2024-09-16 11:32 | XMS_ITS | Encounter Summary ---
Author Organization [facility] Address [address] [place] [address] Phone Care Team Providers Care Broke Beater Operator Name Role Phone Denis Hansen MD Primary Care Provider Suzanne Klein MD Unavailable Laurence Oden [facility] Unavailable Encounter Details Date Type Department Care Team (Late st Contact Info) Description 05/12/2022 Telephone [facility] Cardiology [address] [facility] Advanced Medicine 8th [place] [address] [place] [address] Edson Vega MD [address] [facility] [address] [place] [address] Social History Tobacco Use Types [...] on file Legal Sex Female 8:41 PM LABOR RELATIONS REPRESENTATIVE Gender Identity Not on file Sexual Orientation Not on file 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 Not on file No t on file documented as of this encounter Plan of Treatment Not on file documented as of this encounter Visit Diagnoses Not on filedocumented in this encounter Care Teams Broke Beater Operator Relationship Specialty Start Date End Date Denis Hansen MD [address] [place] [address] PCP - General 12/26/16 Suzanne Klein MD [address] [place] [address] Medical Oncologist/Fundraising Assistant Hematology 06/09/21 Laurence Oden LCSW [address] [facility] ([facility] [place] [phone] [place] [address] SHOP Outpatient Division Head 07/12/23 08/09/23 documented as of this encounter
--- OUTSIDE RECORDS SUMMARY | 2024-09-16 11:32 | XMS_ITS | Encounter Summary ---
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
--- OUTSIDE RECORDS SUMMARY | 2024-09-16 11:32 | XMS_ITS | Encounter Summary ---
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
--- OUTSIDE RECORDS SUMMARY | 2024-09-16 11:32 | XMS_ITS | Encounter Summary ---
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
--- OUTSIDE RECORDS SUMMARY | 2024-09-16 11:32 | XMS_ITS | Encounter Summary ---
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
--- OUTSIDE RECORDS SUMMARY | 2024-09-16 11:32 | XMS_ITS | Continuity of Care Document ---
Author Organization [facility] Address [address] [facility] [address] [place] [address] Insurance Providers Payer Plan Claims Address Claims Phone Policy Number Group Number Relation Employer Guarantor Name Guarantor Guarantor Address Guarantor Phone [employer] [address] [address], [place] [address] tel:[phone] Vaibhav Dinh 1945 [address] [place] [address] [employer] [address], [place] [address] tel:[phone] Vaibhav Dinh 1945 [address] [place] [address] [employer] [address], [place] [address] tel:[phone] Vaibhav Dinh 1945 [address] [place] [address] Problems Condition ICD9 code ICD10 [...]
[2024-09-16 11:35] LABS: Alanine Aminotransferase 19 U/L (6-35); Albumin Level 2.7 g/dL (3.5-5.1); Alkaline Phosphatase 215 U/L (38-126); Anion Gap 6 mmol/L (4-12); Aspartate Amino Transferase 46 U/L (14-36); Bilirubin,Total 1.4 mg/dL (0.2-1.3); Blood Urea Nitrogen 38 mg/dL (7-17); Calcium 8.2 mg/dL (8.4-10.2); Carbon Dioxide 31 mmol/L (22-30); Chloride 104 mmol/L (98-107); Estimated CRCL calculation 18 ml/min; Estimated Glomerular Filt Rate 24; Glucose 132 mg/dL (65-110); Magnesium 2.3 mg/dL (1.6-2.3); Osmolality Calculated 303 mOsm/kg (285-295); Potassium 3.1 mmol/L (3.4-5.0); Sodium 141 mmol/L (137-145); Total Protein 7.0 g/dL (6.3-8.2)
[2024-09-16] MEDS: cefTRIAXone 2 GM in SODIUM CHLORIDE 0.9% IV 100 ML 200 ML IVPB (11:35)
--- OUTSIDE RECORDS SUMMARY | 2024-09-16 11:52 | XMS_ITS | Clinical Summary ---
Author Organization [facility] Address [address] [place] [address] Care Team Providers Care Sports Medicine Physician Name Role Phone Denis Hansen MD Primary Care Provider [phone] Allergies Active Allergy Reactions Criticality Noted Date [...] continue eliquis for the time being A-fib ([facility]) 11/11/2017 Assessment & Plan (11/11/2017 6:26 PM [...] to complete this topic Insurance MED REPLACE [facility] MEDICARE [facility] Advance Directives * Full Code (Latest Code Status on File) Date Activated Date Inactivated Comments 11/11/2017 6:20 PM 11/14/2017 7:49 PM Care Teams Sports Medicine Physician Relationship Specialty Start Date End Date Denis Hansen MD [address] [place] [id number] PCP - General INTERNAL MEDICINE 11/11/17
[2024-09-16] MEDS: SODIUM CHLORIDE 0.9% IV 500 ML 999 ML IV CONT (12:21)
[2024-09-16] MEDS: POTASSIUM CHLORIDE 20 MEQ ER TABLET 40 MEQ PO (12:27)
--- NOTE | 2024-09-16 12:52 | PC.NURSE ---
Pt provided with hot meal tray at bedside. Pt family member stating that pt is acting back to normal.
--- NOTE | 2024-09-16 12:54 | PC.NURSE ---
Bed 209 received from floor under admitting provider Shira Torres. Registration made aware of bed assignment.
--- NOTE | 2024-09-16 13:41 | ADMGEN ---
This patient, Andreina Dinh, was admitted to 2nd Floor Room 209-1. Patient/family oriented to hospital policies and general routines including ID bracelet, bed and alarms, visiting hours, pain management, procedures, bathroom and other care routines, personal items, smoking policy, room service/diet, and visiting hours. Information on how to activate the Rapid Response Team has been discussed. Patient/Family are encouraged to report perceived risks to care and to ask questions if they do not understand what they are told or what they should do.
[2024-09-16] MEDS: SODIUM CHLORIDE 0.9% IV 1,000 ML 100 ML IV CONT (14:37)
[2024-09-16 14:41] LABS: Hematocrit 27.6 % (35.0-42.0); Hemoglobin 9.5 g/dL (11.7-13.8); Immature Granulocyte Percent A 0.5 % (0.0-0.0); Lymphocytes Absolute Auto 0.54 K/mm3 (1.10-4.50); Mean Corpuscular HGB Conc 34.4 g/dL (32-36); Mean Corpuscular Hemoglobin 32.5 pg (27.0-31.0); Mean Corpuscular Volume 94.5 fL (78.0-102.0); Nucleated Red Blood Cells Absolute Auto 0.00 K/mm3 (0.00-0.00); Nucleated Red Blood Cells Perc 0.0 % (0-0.0); Platelet Count Result 172 K/mm3 (150-420); Red Blood Count 2.92 M/mm3 (4.20-5.40); White Blood Count 5.8 K/mm3 (4.8-10.8)
--- NOTE | 2024-09-16 14:49 | PC.NURSE ---
Telemetry applied, afib noted, rate controlled 80-90's
[2024-09-16] MEDS: URSODIOL 500 MG PO (16:15)
[2024-09-16] MEDS: [UNRECOGNIZED DRUG - OTHER] PO (16:15)
[2024-09-16] MEDS: MIDODRINE HCL 2.5 MG TABLET PO (16:15)
[2024-09-16] MEDS: LACTULOSE 10 GM PO (16:16)
[2024-09-16] MEDS: [UNRECOGNIZED DRUG - OTHER] PO (16:16)
[2024-09-16] MEDS: GABAPENTIN 100 MG CAPSULE PO (20:57)
[2024-09-16] MEDS: APIXABAN 2.5 MG TABLET 5 MG BY MOUTH (20:57)
[2024-09-17] VITALS (9 sets, daily range): BP systolic 85–94; BP diastolic 48–60; PULSE 78–110; RESP 18–20; TEMP 36.6–37.2; O2SAT 96–100
[2024-09-17] MEDS: SODIUM CHLORIDE 0.9% IV 1,000 ML 100 ML IV CONT ×2 (01:06→11:01)
[2024-09-17 06:00] LABS: Hematocrit 27.8 % (35.0-42.0); Hemoglobin 9.4 g/dL (11.7-13.8); Immature Granulocyte Percent A 0.3 % (0.0-0.0); Immature Platelet Fraction Pct 6.1 % (1.0-7.0); Lymphocytes Absolute Auto 1.03 K/mm3 (1.10-4.50); Mean Corpuscular HGB Conc 33.8 g/dL (32-36); Mean Corpuscular Hemoglobin 31.6 pg (27.0-31.0); Mean Corpuscular Volume 93.6 fL (78.0-102.0); Nucleated Red Blood Cells Absolute Auto 0.00 K/mm3 (0.00-0.00); Nucleated Red Blood Cells Perc 0.0 % (0-0.0); Platelet Count Result 173 K/mm3 (150-420); Red Blood Count 2.97 M/mm3 (4.20-5.40); White Blood Count 6.9 K/mm3 (4.8-10.8)
[2024-09-17 06:05] LABS: Anion Gap -1 mmol/L (4-12); Blood Urea Nitrogen 31 mg/dL (7-17); Calcium 7.5 mg/dL (8.4-10.2); Carbon Dioxide 28 mmol/L (22-30); Chloride 115 mmol/L (98-107); Estimated CRCL calculation 22 ml/min; Estimated Glomerular Filt Rate 31; Glucose 82 mg/dL (65-110); Osmolality Calculated 299 mOsm/kg (285-295); Potassium 4.2 mmol/L (3.4-5.0); Sodium 142 mmol/L (137-145)
--- OUTSIDE RECORDS SUMMARY | 2024-09-17 07:20 | XMS_ITS | Clinical Summary ---
Author Organization [facility] Address [address] [place] [address] Care Team Providers Care Acid Tender Name Role Phone Denis Hansne MD Primary Care Provider [phone] Allergies Active Allergy Reactions Criticality Noted Date [...] continue eliquis for the time being A-fib ([facility]) 11/11/2017 Assessment & Plan (11/11/2017 [...] complete this topic Insurance MED REPLACE [facility] MEDICARE [facility] Advance Directives * Full Code (Latest Code Status on File) Date Activated Date Inactivated Comments 11/11/2017 6:20 PM 11/14/2017 7:49 PM Care Teams Acid Tender Relationship Specialty Start Date End Date Denis Hansen MD [address] [place] [address] PCP - General INTERNAL MEDICINE 11/11/17
--- OUTSIDE RECORDS SUMMARY | 2024-09-17 07:20 | XMS_ITS | Encounter Summary ---
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
--- OUTSIDE RECORDS SUMMARY | 2024-09-17 07:20 | XMS_ITS | Encounter Summary ---
Author Organization [facility] Address [address] [place] [address] Phone Care Team Providers Care Poultry Farm Worker Name Role Phone Denis Hansen MD Primary Care Provider [phone] Suzanne Klein MD Unavailable [phone] 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
--- OUTSIDE RECORDS SUMMARY | 2024-09-17 07:20 | XMS_ITS | Encounter Summary ---
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
--- OUTSIDE RECORDS SUMMARY | 2024-09-17 07:20 | XMS_ITS | Encounter Summary ---
Author Organization [facility] Address [address] [place] [address] Care Team Providers Care Boomswing Operator Name Role Phone Denis Hansen MD Primary Care Provider [phone] Encounter Details Date Type Department Care Team (Latest Contact Info) Description 11/12/2017 Abstract [facility] Michell Ruelas MD Social History [...] on filedocumented in this encounter Care Teams Boomswing Operator Relationship Specialty Start Date End Date Denis Hansen MD [address] [place] [id number] PCP - General INTERNAL MEDICINE 11/11/17 documented as of this encounter
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
--- OUTSIDE RECORDS SUMMARY | 2024-09-17 07:21 | XMS_ITS | Encounter Summary ---
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
--- OUTSIDE RECORDS SUMMARY | 2024-09-17 07:21 | XMS_ITS | Encounter Summary ---
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
--- OUTSIDE RECORDS SUMMARY | 2024-09-17 07:21 | XMS_ITS | Encounter Summary ---
Author Organization 

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
--- OUTSIDE RECORDS SUMMARY | 2024-09-17 07:22 | XMS_ITS | Encounter Summary ---
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
--- OUTSIDE RECORDS SUMMARY | 2024-09-17 07:22 | XMS_ITS | Encounter Summary ---
Author Organization [facility] Address [address] [place] [address] Care Team Providers Care Coke Wheeler Name Role Phone Denis Hansen MD Primary Care Provider Suzanne Klein MD Unavailable Laurence Oden [facility] Unavailable Encounter Details Date Type Department Care Team (Late st Contact Info) Description 10/03/2019 Telephone [facility] [address] [place], [place] [id number] Laura Pérez MD [address] 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 No t on file documented as of this encounter Plan of Treatment Not on file documented as of this encounter Visit Diagnoses Not on filedocumented in this encounter Care Teams Coke Wheeler Relationship Specialty Start Date End Date Denis Hansen MD [address] [place] [address] PCP - General 12/26/16 Suzanne Klein MD [address] [place] [address] Medical Oncologist/Energy Engineer Hematology 06/09/21 Laurence Oden LCSW [address] [facility] ([facility]) Mailstop [phone] [place] [address] SHOP Outpatient Blender Helper 07/12/23 08/09/23 documented as of this encounter
--- OUTSIDE RECORDS SUMMARY | 2024-09-17 07:22 | XMS_ITS | Encounter Summary ---
Author Organization [facility] Address [address] [place] [address] Phone Care Team Providers Care Director Radio News Name Role Phone Denis Hansen MD Primary Care Provider Suzanne Klein MD Unavailable [phone] Encounter Details Date Type Department Care Team (Late st Contact Info) Description 09/05/2024 Telephone [facility] Cardiology [address] [facility] Advanced Medicine 8th [place] [address] [place] [address] Edson Vega MD [address] [facility] [address] [place], [place] [id number] Social History Tobacco Use Types Packs/Day Years Used Date Smoking Tobacco: Never Passive Smoke Exposure: Never Smokeless Tobacco: Never Alcohol Use Standard Drinks/Week Comments No 0 (1 standard drink = 0.6 oz pur e alcohol) [facility] Utilities Answer Date Recorded In the past 12 months has [employer], gas, oil, or water company threatened [...] often do you attend chur ch or temple services? More than 4 times per year 07/12/2023 Do you belong to any clubs o r organizations such as buddhism groups, unions, fraternal or athletic groups, or [...] any time in the past 12 m [facility], were you homeless or living in a prison (including now)? No 07/12/2023 Personal Safety Answer Date Recorded Have you ever been in or are you currently in a harmful physical or emotional relationship or is someone making you feel afraid or unsafe? 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 * Telephone Encounter - Negar Trotter - 09/05/2024 12:11 PM CDT Silvia Patient's daughter called requesting lab orders to be sent to [facility]. She would also like to discuss questions she has regarding lasix. Adelita can be reached at [phone]. documented in this encounter Plan of Treatment Not on file documented as of this encounter Visit Diagnoses Not on filedocumented in this encounter Care Teams Director Radio News Relationship Specialty Start Date End Date Denis Hansen MD [address] [place] [address] PCP - General 12/26/16 Suzanne Klein MD [address] [place] [address] Medical Oncologist/Assistant Quality Manager Hematology 06/09/21 documented as of this encounter
--- OUTSIDE RECORDS SUMMARY | 2024-09-17 07:22 | XMS_ITS | Encounter Summary ---
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
--- OUTSIDE RECORDS SUMMARY | 2024-09-17 07:22 | XMS_ITS | Encounter Summary ---
Author Organization [facility] Address [address] [place] [address] Phone Care Team Providers Care Kindergarten Tutor Name Role Phone Denis Hansen MD Primary Care Provider Suzanne Klein MD Unavailable Laurence Oden [facility] Unavailable Encounter Details Date Type Department Care Team (Late st Contact Info) Description 05/12/2022 Telephone [facility] Cardiology [address] [facility] Advanced Medicine 8th [place] [address] [place] [address] Edson Vega MD [address] [facility] [address] [place] [address] Social History Tobacco Use Types [...] on file Legal Sex Female 8:41 PM FINANCIAL ADVOCATE Gender Identity Not on file Sexual Orientation Not on file 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 file No t on file documented as of this encounter Plan of Treatment Not on file documented as of this encounter Visit Diagnoses Not on filedocumented in this encounter Care Teams Kindergarten Tutor Relationship Specialty Start Date End Date Denis Hansen MD [address] [place] [address] PCP - General 12/26/16 Suzanne Klein MD [address] [place] [address] Medical Oncologist/Injection Operator Hematology 06/09/21 Laurence Oden LCSW [address] [facility] ([facility] [phone] [place] [address] SHOP Outpatient Meterman 07/12/23 08/09/23 documented as of this encounter
--- OUTSIDE RECORDS SUMMARY | 2024-09-17 07:22 | XMS_ITS | Encounter Summary ---
Author Organization [facility] Address [address] [place] [address] Phone Care Team Providers Care Speech Lang Path Therapist Name Role Phone Denis Hansen MD Primary Care Provider [phone] Suzanne Klein MD Unavailable [phone] Encounter Details Date Type Department Care Team (Late st Contact Info) Description 09/03/2024 Results Follow-Up [facility] Cardiology [address] [place] [address] Edson Vega MD [address] [facility] [address] [place] [address] Pro B-type natriuretic peptide, Basic metabolic panel, Critical Result Callback Chemistry, Additional followed-up results: 2 Social History Tobacco Use Types Packs/Day Years Used Date Smoking Tobacco: Never Passive Smoke Exposure: Never Smokeless Tobacco: Never Alcohol Use Standard Drinks/Week Comments No 0 (1 standard drink = 0.6 oz pur e alcohol) [facility] Utilities Answer Date Recorded In the past 12 months has [employer], gas, oil, or water [employer] threatened to shut off services in your [...] How often do you attend chur or baptism services? 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
--- OUTSIDE RECORDS SUMMARY | 2024-09-17 07:22 | XMS_ITS | Encounter Summary ---
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
[2024-09-17] MEDS: cefTRIAXone 2 GM in SODIUM CHLORIDE 0.9% IV 100 ML 200 ML IVPB (09:06)
[2024-09-17] MEDS: APIXABAN 2.5 MG TABLET 5 MG BY MOUTH (09:08)
[2024-09-17] MEDS: MULTIVITAMINS THERAPEUTIC TAB (*BKC) 1 TABLET PO (09:09)
[2024-09-17] MEDS: PRAVASTATIN SODIUM 10 MG TABLET PO (09:09)
[2024-09-17] MEDS: PANTOPRAZOLE 40 MG TABLET PO (09:09)
[2024-09-17] MEDS: URSODIOL 500 MG PO ×2 (09:10→17:09)
[2024-09-17] MEDS: MIDODRINE HCL 2.5 MG TABLET PO (09:10)
[2024-09-17] MEDS: [UNRECOGNIZED DRUG - OTHER] PO ×2 (09:10→17:09)
--- NOTE | 2024-09-17 11:14 | P.SS_ITS ---
Same Day Admit/Disch: HPI History of Present Illness Chief complaint: HYPOTENSION DEHYDRATION Narrative: Andreina Dinh is a 79 year old female [facility] Past Medical History Medical History Esophagitis Hypotension GERD (gastroesophageal reflux disease) Hyperlipidemia CHF (congestive heart failure) Afib Social History Social History Smoking status: Never smoker Second hand tobacco smoke exposure: No Alcohol intake: never Substance use: never Substance use type: does not use Do You Feel Safe in your Home?: Yes Lack of Transportation: No Lack of Food: Never True Current Housing: I Have Housing Concerned About Future Housing: No Difficulty Paying Gas/Electric Bills: No Difficulty Paying for Meds: No Currently Unemployed: No Education: Bachelor's Degree Difficulty w/ Childcare or Family Care: No Spiritual care concerns: No Same Day Admit/Disch: Med Pre-admit Medications Home Medications ?Medication ?Instructions ?Recorded ?Confirmed ?Type pravastatin 20 mg tablet 10 mg PO DAILY 05/04/21 09/16/24 History omeprazole 40 mg capsule,delayed 40 mg PO DAILY 05/12/22 09/16/24 History release ursodiol 500 mg tablet 500 mg PO BID 05/12/22 09/16/24 History lactulose 10 gram/15 mL oral 20 g PO TID 12/06/22 09/16/24 History solution acetaminophen 650 tablet PO Q6H PRN Pain 11/12/23 09/16/24 History apixaban 5 mg tablet (Eliquis) 5 mg PO BID #60 tabs 11/22/23 09/16/24 Rx calcium carbonate 200 mg (0.4 x 500 mg calcium 11/22/23 09/16/24 Rx (1,250 mg)) PO Q2H PRN Indigestion #90 tabs cholecalciferol (vitamin D3) 125 5,000 unit PO DAILY #30 tabs 11/22/23 09/16/24 Rx mcg (5,000 unit) tablet docusate sodium 100 mg capsule 100 mg PO BID PRN Constipation #60 11/22/23 09/16/24 Rx caps ferrous sulfate 325 mg (65 mg 325 mg PO DAILY #30 tabs 11/22/23 09/16/24 Rx iron) tablet,delayed release lidocaine 4 % topical patch 2 patch topical DAILY #30 ea 11/22/23 09/16/24 Rx (Blue-Emu Lidocaine Patch) methocarbamol 500 mg tablet 1,000 mg (2 x 500 mg) PO TID #90 11/22/23 09/16/24 Rx tabs midodrine 2.5 mg tablet 2.5 mg PO TID #90 tabs 11/22/23 09/16/24 Rx multivitamin with folic acid 400 1 tablet PO QAM #30 tabs 11/22/23 09/16/24 Rx mcg tablet (Thera) oxycodone 5 mg tablet 5 mg PO Q8H PRN Pain Rated 7-10 11/22/23 09/16/24 Rx #20 tabs pantoprazole 40 mg tablet,delayed 40 mg PO DAILY #30 tabs 11/22/23 09/16/24 Rx release polyethylene glycol 3350 17 gram 17 g PO DAILY #30 ea 11/22/23 09/16/24 Rx oral powder packet gabapentin 100 mg capsule 100 mg PO HS 09/02/24 09/16/24 History potassium chloride 20 mEq 20 meq PO DAILY 09/02/24 09/16/24 History tablet,extended release(part/cryst) amoxicillin 875 mg-potassium 1 tablet PO Q12H 09/16/24 09/16/24 History clavulanate 125 mg tablet bumetanide 1 mg tablet 1 mg PO Q12H 09/16/24 09/16/24 History rifaximin 550 mg tablet (Xifaxan) 550 mg PO BID 09/16/24 09/16/24 History DS: Data Data Completed and Pending Labs on day of discharge: Labs from last 24 hours 09/17/24 09/16/24 09/16/24 05:33 14:37 11:21 WBC 6.9 5.8 6.2 RBC 2.97 L 2.92 L 3.32 L Hgb 9.4 L 9.5 L 10.7 L Hct 27.8 L 27.6 L 31.2 L MCV 93.6 94.5 94.0 MCH 31.6 H 32.5 H 32.2 H MCHC 33.8 34.4 34.3 RDW 18.4 H 18.6 H 18.6 H Plt Count 173 172 215 MPV 12.8 H 12.0 H 12.1 H Immature Gran % (Auto) 0.3 H 0.5 H 0.3 H Neut % (Auto) 69.5 81.2 H 70.7 H Lymph % (Auto) 15.0 L 9.4 L 16.1 L [place] % (Auto) 9.8 6.1 8.4 Eos % (Auto) 4.1 1.9 3.2 Baso % (Auto) 1.3 H 0.9 1.3 H Lymph # (Auto) 1.03 L 0.54 L 1.00 L [place] # (Auto) 0.67 0.35 0.52 Eos # (Auto) 0.28 0.11 0.20 Baso # (Auto) 0.09 0.05 0.08 Abs Immat Gran (auto) 0.02 H 0.03 H 0.02 H Absolute Neuts (auto) 4.77 4.67 4.38 Absolute Nucleated RBC 0.00 0.00 0.02 H Nucleated RBC % 0.0 0.0 0.3 H % Immature Plt Fraction 6.1 Sodium 142 141 Potassium 4.2 3.1 L Chloride 115 H 104 Carbon Dioxide 28 31 H Anion Gap -1 L 6 BUN 31 H 38 H D Creatinine 1.62 H 2.00 H Estim Creat Clear Calc 22 18 Estimated GFR 31 L 24 L Glucose 82 132 H Calculated Osmolality 299 H 303 H Calcium 7.5 L 8.2 L Magnesium 2.3 Total Bilirubin 1.4 H AST 46 H ALT 19 Alkaline Phosphatase 215 H Total Protein 7.0 Albumin 2.7 L DS: Summary Time Spent with Patient Time attestation: Total time spent providing and/or coordinating discharge services: Discharge Plan Discharge Patient Language: Portuguese Discharge Medications: No Action pravastatin 20 mg Tablet 10 mg PO DAILY lactulose 10 gram/15 mL solution 20 g PO TID Patient Comments: PT CAN ONLY TOLERATE KRISTALOSE BRAND OF LACTULOSE Rx Instructions: 2 PACKETS (20GM) BY MOUTH TID. MAY HOLD DOSE IF HAS BOWEL MOVEMENT. gabapentin 100 mg capsule 100 mg PO HS potassium chloride 20 mEq tablet,ER particles/crystals 20 meq PO DAILY bumetanide 1 mg tablet 1 mg PO Q12H amoxicillin-pot clavulanate 875-125 mg tablet 1 tablet PO Q12H Xifaxan 550 mg tablet 550 mg PO BID Patient Comments: has been taking since December per [facility] omeprazole 40 mg capsule,delayed release(DR/EC) 40 mg PO DAILY ursodiol 500 mg tablet 500 mg PO BID acetaminophen 650 tablet PO Q6H PRN (Reason: Pain) oxycodone 5 mg Tablet 5 mg PO Q8H PRN (Reason: Pain Rated 7-10) Qty: 20 0RF pantoprazole 40 mg Tablet,Delayed Release (Dr/Ec) 40 mg PO DAILY Qty: 30 0RF docusate sodium 100 mg Capsule 100 mg PO BID PRN (Reason: Constipation) Qty: 60 0RF calcium carbonate 500 mg calcium (1,250 mg) Tablet,Chewable 200 mg PO Q2H PRN (Reason: Indigestion) Qty: 90 0RF ferrous sulfate 325 mg (65 mg iron) Tablet,Delayed Release (Dr/Ec) 325 mg PO DAILY Qty: 30 0RF cholecalciferol (vitamin D3) 125 mcg (5,000 unit) Tablet 5,000 unit PO DAILY Qty: 30 0RF multivitamin with folic acid [Thera] 400 mcg Tablet 1 tablet PO QAM Qty: 30 0RF methocarbamol 500 mg Tablet 1,000 mg PO TID Qty: 90 0RF lidocaine [Blue-Emu Lidocaine Patch] 4 % Adhesive Patch,Medicated 2 patch TOPICAL DAILY Qty: 30 0RF polyethylene glycol 3350 17 gram Powder In Packet 17 g PO DAILY Qty: 30 0RF midodrine 2.5 mg tablet 2.5 mg PO TID Qty: 90 0RF Eliquis 5 mg Tablet 5 mg PO BID Qty: 60 0RF Date of admission: 09/16/24 12:51 Primary Care Provider: Denis Hansen Admitting Provider: Son Pollard Attending physician on admission: Son Pollard Condition: Improved
--- NOTE | 2024-09-17 12:44 | P.HP_ITS ---
H&P: HPI History of Present Illness Date/Time: 09/17/24 10:15 Chief Complaint: Hypotension, GLORIA, possible UTI Narrative: This is a 79 year old female patient who is admitted due to hypotension and dizziness. Patient has a history of low blood pressure usually. Her daughter and granddaughter have diagnosis of POTS. Patient also has atrial fibrillation and is on Eliquis for stroke prevention. Patient states that yesterday she was very dizzy and blood pressure was 50s over 40 at home prompting her ER visit. In ER she was given 2 liters of IV fluids with improvement in blood pressure and dizziness. Patient found to have GLORIA on CKD with Cr 2, her baseline is 1.1-1.7 per review of records. She has been on IV fluids overnight and labs this morning show Cr down to 1.6. Urinalysis indicates possible UTI so she was started on Rocephin pending cultures. Patient reports feeling much better today. Orthostatic vital signs completed and her BP stayed on the lower side of normal for her usual per patient's daughter who is also a nurse. Patient had wanted to go home but was ok with staying another day to continue IV fluids for GLORIA. We discussed her home medications and a few changes were recommended including decreasing Eliquis to 2.5 mg BID and increasing midodrine to 5 mg TID. We also discussed having patient take 0.5 mg Bumex daily with 10 mEq KCL and having labs rechecked in a week. She had been prescribed Augmentin for UTI prior to hospitalization but did not pick it up from the pharmacy yet. I reviewed this and the Augmentin should be dose adjusted due to renal function. New prescriptions written. Patient will remain on Rocephin daily while hospitalized. Urine and blood cultures pending. Review of Systems Review of Systems: All systems reviewed & are unremarkable except as noted in HPI and below PMFSH Past Medical History Medical History Esophagitis Hypotension GERD (gastroesophageal reflux disease) Hyperlipidemia CHF (congestive heart failure) Afib Social History Social History Smoking status: Never smoker Second hand tobacco smoke exposure: No Alcohol intake: never Substance use: never Substance use type: does not use Do You Feel Safe in your Home?: Yes Lack of Transportation: No Lack of Food: Never True Current Housing: I Have Housing Concerned About Future Housing: No Difficulty Paying Gas/Electric Bills: No Difficulty Paying for Meds: No Currently Unemployed: No Education: Bachelor's Degree Difficulty w/ Childcare or Family Care: No Spiritual care concerns: No Meds Home Medications and Allergies Home Medications ?Medication ?Instructions ?Recorded ?Confirmed ?Type pravastatin 20 mg tablet 10 mg PO DAILY 05/04/21 09/16/24 History omeprazole 40 mg capsule,delayed 40 mg PO DAILY 05/12/22 09/16/24 History release ursodiol 500 mg tablet 500 mg PO BID 05/12/22 09/16/24 History lactulose 10 gram/15 mL oral 20 g PO TID 12/06/22 09/16/24 History solution acetaminophen 650 tablet PO Q6H PRN Pain 11/12/23 09/16/24 History apixaban 5 mg tablet (Eliquis) 5 mg PO BID #60 tabs 11/22/23 09/16/24 Rx calcium carbonate 200 mg (0.4 x 500 mg calcium 11/22/23 09/16/24 Rx (1,250 mg)) PO Q2H PRN Indigestion #90 tabs cholecalciferol (vitamin D3) 125 5,000 unit PO DAILY #30 tabs 11/22/23 09/16/24 Rx mcg (5,000 unit) tablet docusate sodium 100 mg capsule 100 mg PO BID PRN Constipation #60 11/22/23 09/16/24 Rx caps ferrous sulfate 325 mg (65 mg 325 mg PO DAILY #30 tabs 11/22/23 09/16/24 Rx iron) tablet,delayed release lidocaine 4 % topical patch 2 patch topical DAILY #30 ea 11/22/23 09/16/24 Rx (Blue-Emu Lidocaine Patch) methocarbamol 500 mg tablet 1,000 mg (2 x 500 mg) PO TID #90 11/22/23 09/16/24 Rx tabs midodrine 2.5 mg tablet 2.5 mg PO TID #90 tabs 11/22/23 09/16/24 Rx multivitamin with folic acid 400 1 tablet PO QAM #30 tabs 11/22/23 09/16/24 Rx mcg tablet (Thera) oxycodone 5 mg tablet 5 mg PO Q8H PRN Pain Rated 7-10 11/22/23 09/16/24 Rx #20 tabs pantoprazole 40 mg tablet,delayed 40 mg PO DAILY #30 tabs 11/22/23 09/16/24 Rx release polyethylene glycol 3350 17 gram 17 g PO DAILY #30 ea 11/22/23 09/16/24 Rx oral powder packet gabapentin 100 mg capsule 100 mg PO HS 09/02/24 09/16/24 History potassium chloride 20 mEq 20 meq PO DAILY 09/02/24 09/16/24 History tablet,extended release(part/cryst) amoxicillin 875 mg-potassium 1 tablet PO Q12H 09/16/24 09/16/24 History clavulanate 125 mg tablet bumetanide 1 mg tablet 1 mg PO Q12H 09/16/24 09/16/24 History rifaximin 550 mg tablet (Xifaxan) 550 mg PO BID 09/16/24 09/16/24 History amoxicillin 500 mg-potassium 1 tablet PO Q12H #14 tabs 09/17/24 Rx clavulanate 125 mg tablet (Augmentin) apixaban 2.5 mg tablet (Eliquis) 2.5 mg BYMOUTH Q12HR #60 tabs 09/17/24 Rx bumetanide 1 mg tablet 0.5 mg (1/2 x 1 mg) PO DAILY #15 09/17/24 Rx tabs midodrine 5 mg tablet 5 mg PO TID #90 tabs 09/17/24 Rx Allergies Allergy/AdvReac Type Severity Reaction Status Date / Time Sulfa (Sulfonamide Allergy Hives Verified 09/16/24 11:13 Antibiotics) Vital Signs Vital Signs - 24 hr 09/16/24 12:45 09/16/24 12:49 09/16/24 12:50 Temperature Pulse Rate 85 90 107 H Respiratory Rate 15 14 15 Blood Pressure 82/59 L Pulse Oximetry 99 98 98 Oxygen Delivery 09/16/24 13:00 09/16/24 13:01 09/16/24 13:15 Temperature Pulse Rate 106 H 87 96 Respiratory Rate 18 20 15 Blood Pressure 87/65 L Pulse Oximetry 98 95 Oxygen Delivery 09/16/24 13:25 09/16/24 16:00 09/16/24 16:00 Temperature 36.3 C L 36.6 C Pulse Rate 74 95 87 Respiratory Rate 18 20 Blood Pressure 77/53 L 87/63 L Pulse Oximetry 99 99 Oxygen Delivery Room Air Room Air 09/16/24 20:00 09/16/24 20:00 09/17/24 00:00 Temperature Pulse Rate 87 87 92 Respiratory Rate 20 Blood Pressure Pulse Oximetry 99 Oxygen Delivery Room Air 09/17/24 00:00 09/17/24 04:00 09/17/24 08:00 Temperature 36.7 C Pulse Rate 92 98 98 Respiratory Rate 18 Blood Pressure 85/57 L Pulse Oximetry 100 Oxygen Delivery Room Air 09/17/24 08:00 09/17/24 10:56 09/17/24 10:57 Temperature 37.2 C 37.1 C Pulse Rate 100 98 108 H Respiratory Rate 18 20 Blood Pressure 94/60 L 92/50 L 88/52 L Pulse Oximetry 96 Oxygen Delivery Room Air Room Air 09/17/24 10:58 Temperature Pulse Rate 110 H Respiratory Rate Blood Pressure 86/48 L Pulse Oximetry 96 Oxygen Delivery Room Air Exam Const: General: healthy appearing and no acute distress Nutritional Appearance: well nourished Orientation/consciousness: patient oriented x3 Limitations: no limitations HENMT: Head: normal to inspection Face and sinus: normal facial exam Mouth: Yes Normal oral and palatal mucosa present Throat: posterior oropharynx normal Eyes: EOM: EOMs intact bilaterally Chest: Chest palpation & inspection: normal inspection of the chest Resp: Effort & Inspection: normal respiratory effort Auscultation: clear to auscultation bilaterally Cardio: Rate: regular rate Rhythm: abnormal rhythm irregularly irregular GI: GI Palp: Yes Soft to palpation and No Tenderness to palpation present (GI) Auscultation: normal bowel sounds Skin: General skin exam: normal color Rashes: no rashes Wounds: no wounds Neuro: General: patient oriented x3, moves all extremities, no meningeal signs, no focal motor deficits and CN's II-XI intact bilaterally Speech: normal speech Extrem: General: normal to inspection and no clubbing, cyanosis or edema Psych: Mental Status: mental status grossly normal Affect: normal affect Attitude: cooperative H&P: Results Labs Labs: Short CBC 09/16/24 09/17/24 Range/Units 14:37 05:33 WBC 5.8 6.9 (4.8-10.8) K/mm3 Hgb 9.5 L 9.4 L (11.7-13.8) g/dL Hct 27.6 L 27.8 L (35.0-42.0) % Plt Count 172 173 (150-420) K/mm3 [facility] 09/17/24 05:33 Sodium 142 Potassium 4.2 Chloride 115 H Carbon Dioxide 28 BUN 31 H Creatinine 1.62 H Glucose 82 Calcium 7.5 L Pulse Oximetry SpO2 results: 96-100% on room air Attestation: I personally reviewed and interpreted this pulse oximetry as follows: Interpretation: No need for supplemental oxygenation at this time ECG Attestation: I personally reviewed and interpreted this ECG as follows: ECG completion date: 09/16/24 ECG completion time: 11:36 Prior ECG tracings: available for review Interpretation: Atrial fibrillation rate of 80 Assessment and Plan Assessment and plan (1) Acute hypotension: Code(s): I95.9 - Hypotension, unspecified Status: Acute Assessment and Plan: -[place] to be acute on chronic hypotension due to dehydration from overdiuresis -Recent change from furosemide to Bumex -Home medication of midodrine 2.5 mg TID -UTI suspected and treated with Rocephin -Does not meet sepsis criteria (2) Acute kidney injury superimposed on CKD: Code(s): N17.9 - Acute kidney failure, unspecified; N18.9 - Chronic kidney disease, unspecified Status: Acute Assessment and Plan: -Initial Cr 2 on admit, down to 1.6 after IV fluids -Continue IV fluids one more day but monitor for fluid overload (3) Abnormal urinalysis: Code(s): R82.90 - Unspecified abnormal findings in urine Status: Acute Assessment and Plan: -UA with findings that could indicate UTI -IV Rocephin started, will continue -Plan discharge on Augmentin which has been renally adjusted (4) Acute dehydration: Code(s): E86.0 - Dehydration Status: Acute Assessment and Plan: -See above, felt to be due to over-diuresis (5) Acute hypokalemia: Code(s): E87.6 - Hypokalemia Status: Acute Assessment and Plan: -Potassium 3.2 on admit -Previous potassium prescription discontinued for hyperkalemia--was taking 40 mEq daily and skipping diuretic -Now compliant with Bumex and potassium low again -Recheck labs in the morning -KCL 10 mEq daily with Bumex 0.5 mg daily to start 09/18 and prescriptions changed for discharge also 09/18 (6) Afib: Qualifiers: Atrial fibrillation type: unspecified chronic Qualified Code(s): I48.20 - Chronic atrial fibrillation, unspecified Code(s): I48.91 - Unspecified atrial fibrillation Status: Acute Assessment and Plan: -Chronic history of afib -Eliquis home medication, dose reduction indicated due to elevated serum creatinine and low total body weight -One episode of significant tachycardia overnight with activity--up to restroom -No current dizziness with HR around 90-110 -Blood pressure improved with IV fluids -OK to DC telemetry (7) Primary biliary cirrhosis: Code(s): K74.3 - Primary biliary cirrhosis Status: Chronic Assessment and Plan: -History of cirrhosis with elevated ammonia -Continue specified version of lactulose and Xifaxin -No confusion at this time -Per family, patient does not get ascities Plan -Modified Code, no intubation per patient wishes Quality VTE Prophylaxis VTE prophylaxis: pharmacologic ordered (Eliquis--dose adjusted) Hospitalist MIPS Advance Care Plan I have confirmed that the patient's Advanced Care Plan is present, code status is documented, or surrogate decision maker is listed in patient medical record.: Yes Medication Reconciliation I have utilized all available resources to obtain, update and review the patients current medications (includes all prescriptions, OTC, herbals, cannabis, and nutritional supplements).: Yes
[2024-09-17] MEDS: MIDODRINE HCL 2.5 MG TABLET 5 MG PO ×2 (13:06→17:10)
[2024-09-17] MEDS: LACTULOSE 10 GM PO (17:11)
[2024-09-17] MEDS: [UNRECOGNIZED DRUG - OTHER] PO (17:11)
[2024-09-17] MEDS: GABAPENTIN 100 MG CAPSULE PO (20:01)
[2024-09-17] MEDS: APIXABAN 2.5 MG TABLET BY MOUTH (20:01)
[2024-09-17] MEDS: oxyCODONE HCL (*CRX) 5 MG TAB IR PO (20:01)
[2024-09-18] VITALS: BP 95/60; PULSE 79; RESP 17; TEMP 37; O2SAT 99
[2024-09-18] MEDS: SODIUM CHLORIDE 0.9% IV 1,000 ML 60 ML IV CONT (03:04)
[2024-09-18 05:18] LABS: Hematocrit 27.0 % (35.0-42.0); Hemoglobin 9.1 g/dL (11.7-13.8); Immature Granulocyte Percent A 1.2 % (0.0-0.0); Lymphocytes Absolute Auto 1.18 K/mm3 (1.10-4.50); Mean Corpuscular HGB Conc 33.7 g/dL (32-36); Mean Corpuscular Hemoglobin 31.9 pg (27.0-31.0); Mean Corpuscular Volume 94.7 fL (78.0-102.0); Nucleated Red Blood Cells Absolute Auto 0.03 K/mm3 (0.00-0.00); Nucleated Red Blood Cells Perc 0.4 % (0-0.0); Platelet Count Result 182 K/mm3 (150-420); Red Blood Count 2.85 M/mm3 (4.20-5.40); White Blood Count 7.4 K/mm3 (4.8-10.8)
[2024-09-18 05:31] LABS: Alanine Aminotransferase 13 U/L (6-35); Albumin Level 2.0 g/dL (3.5-5.1); Alkaline Phosphatase 166 U/L (38-126); Anion Gap 1 mmol/L (4-12); Aspartate Amino Transferase 35 U/L (14-36); Bilirubin,Total 1.1 mg/dL (0.2-1.3); Blood Urea Nitrogen 27 mg/dL (7-17); Calcium 7.9 mg/dL (8.4-10.2); Carbon Dioxide 25 mmol/L (22-30); Chloride 115 mmol/L (98-107); Estimated CRCL calculation 27 ml/min; Estimated Glomerular Filt Rate 39; Glucose 87 mg/dL (65-110); Magnesium 2.2 mg/dL (1.6-2.3); Osmolality Calculated 296 mOsm/kg (285-295); Potassium 4.0 mmol/L (3.4-5.0); Sodium 141 mmol/L (137-145); Total Protein 5.5 g/dL (6.3-8.2)
[2024-09-18 08:00] VITALS: BP 111/72; PULSE 84; RESP 20; TEMP 37.2; O2SAT 97
[2024-09-18] MEDS: cefTRIAXone 2 GM in SODIUM CHLORIDE 0.9% IV 100 ML 200 ML IVPB (08:54)
[2024-09-18] MEDS: [UNRECOGNIZED DRUG - OTHER] PO (08:54)
[2024-09-18] MEDS: URSODIOL 500 MG PO (08:54)
[2024-09-18] MEDS: BUMETANIDE 0.5 MG TABLET PO (09:03)
[2024-09-18] MEDS: MIDODRINE HCL 2.5 MG TABLET 5 MG PO (09:04)
[2024-09-18] MEDS: MULTIVITAMINS THERAPEUTIC TAB (*BKC) 1 TABLET PO (09:04)
[2024-09-18] MEDS: POTASSIUM CHLORIDE 10 MEQ ER TABLET PO (09:05)
[2024-09-18] MEDS: APIXABAN 2.5 MG TABLET BY MOUTH (09:05)
[2024-09-18] MEDS: PRAVASTATIN SODIUM 10 MG TABLET PO (09:05)
[2024-09-18] MEDS: LACTULOSE 10 GM PO (09:06)
[2024-09-18] MEDS: PANTOPRAZOLE 40 MG TABLET PO (09:06)
[2024-09-18] MEDS: [UNRECOGNIZED DRUG - OTHER] PO (09:06)
--- NOTE | 2024-09-18 09:34 | PM.DS ---
DS: Admitting Diagnosis Discharge Date 09/18/2024 Admitting Diagnosis symptomatic hypotension DS: Discharge Diagnosis Discharge Diagnosis (1) Acute hypotension: Code(s): I95.9 - Hypotension, unspecified Status: Acute (2) Acute kidney injury superimposed on CKD: Code(s): N17.9 - Acute kidney failure, unspecified; N18.9 - Chronic kidney disease, unspecified Status: Acute (3) Abnormal urinalysis: Code(s): R82.90 - Unspecified abnormal findings in urine Status: Acute (4) Acute dehydration: Code(s): E86.0 - Dehydration Status: Acute (5) Acute hypokalemia: Code(s): E87.6 - Hypokalemia Status: Acute (6) Afib: Qualifiers: Atrial fibrillation type: unspecified chronic Qualified Code(s): I48.20 - Chronic atrial fibrillation, unspecified Code(s): I48.91 - Unspecified atrial fibrillation Status: Acute (7) Primary biliary cirrhosis: Code(s): K74.3 - Primary biliary cirrhosis Status: Chronic DS: Summary Hospital Course Reason for hospitalization: symptomatic hypotension Hospital Course: Admission: Patient was a 79 year old female patient who is admitted due to hypotension and dizziness. Patient has a history of low blood pressure usually. Her daughter and granddaughter have diagnosis of POTS. Patient also has atrial fibrillation and is on Eliquis for stroke prevention. Patient states that yesterday she was very dizzy and blood pressure was 50s over 40 at home prompting her ER visit. In ER she was given 2 liters of IV fluids with improvement in blood pressure and dizziness. In the ED: Patient found to have GLORIA on CKD with Cr 2, her baseline is 1.1-1.7 per review of records. She has been on IV fluids overnight and labs this morning show Cr down to 1.6. Urinalysis indicates possible UTI so she was started on Rocephin pending cultures. Hospital course: Patient was admitted to the medical unit on IV fluids and orthostatic vital signs completed with her BP staying on the lower side of normal for her usual. We discussed her home medications and a few changes were recommended including decreasing Eliquis to 2.5 mg BID and increasing midodrine to 5 mg TID. We also discussed having patient take 0.5 mg Bumex daily with 10 mEq KCL and having labs rechecked in a week. She had been prescribed Augmentin for UTI prior to hospitalization but did not pick it up from the pharmacy yet. I reviewed this and the Augmentin should be dose adjusted due to renal function. New prescriptions written. Patient with overall improvement to symptoms including BP she remained afebrile and was tolerating oral intake. patient reported feeling back to her baseline and was discharged home family reviewed and educated on medication adjustments and spoke with patient's daughter Adelita as well regarding medication changes. Status at Discharge Functional status at discharge: independent ambulation Overall status at discharge: patient is back to baseline Time Spent with Patient Time attestation: Total time spent providing and/or coordinating discharge services: Time spent: Greater than 30 minutes Exam Const: General: healthy appearing, no acute distress and well nourished Nutritional Appearance: well nourished Orientation/consciousness: patient oriented x3 Limitations: no limitations HENMT: Head: normal to inspection Face/Nose/Sinus: normal facial exam Face and sinus: normal facial exam Mouth: Yes Normal oral and palatal mucosa present Throat: posterior oropharynx normal Eyes: EOM: EOMs intact bilaterally Neck: Neck: no meningeal signs Chest: Chest palpation & inspection: normal inspection of the chest Resp: Effort & Inspection: normal respiratory effort Auscultation: clear to auscultation bilaterally Cardio: Rate: regular rate Rhythm: abnormal rhythm irregularly irregular GI: Auscultation: normal bowel sounds Skin: General skin exam: normal color Rashes: no rashes Wounds: no wounds Neuro: General: patient oriented x3, moves all extremities, no meningeal signs, no focal motor deficits and CN's II-XI intact bilaterally Speech: normal speech Extrem: General: normal to inspection and no clubbing, cyanosis or edema Psych: Mental Status: mental status grossly normal Affect: normal affect Attitude: cooperative DS: Data Data Completed and Pending Labs on day of discharge: Labs from last 24 hours 09/18/24 05:11 WBC 7.4 RBC 2.85 L Hgb 9.1 L Hct 27.0 L MCV 94.7 MCH 31.9 H MCHC 33.7 RDW 18.4 H Plt Count 182 MPV 12.2 H Immature Gran % (Auto) 1.2 H Neut % (Auto) 65.3 Lymph % (Auto) 16.0 L [place] % (Auto) 11.3 H Eos % (Auto) 5.0 Baso % (Auto) 1.2 H Lymph # (Auto) 1.18 [place] # (Auto) 0.83 Eos # (Auto) 0.37 Baso # (Auto) 0.09 Abs Immat Gran (auto) 0.09 H Absolute Neuts (auto) 4.80 Absolute Nucleated RBC 0.03 H Nucleated RBC % 0.4 H Sodium 141 Potassium 4.0 Chloride 115 H Carbon Dioxide 25 Anion Gap 1 L BUN 27 H Creatinine 1.32 H Estim Creat Clear Calc 27 Estimated GFR 39 L Glucose 87 Calculated Osmolality 296 H Calcium 7.9 L Magnesium 2.2 Total Bilirubin 1.1 AST 35 ALT 13 Alkaline Phosphatase 166 H Total Protein 5.5 L Albumin 2.0 L Discharge Plan Discharge Attending physician on discharge: Son Pollard Consulting providers: Brett Rodney; Hayley Bosch; Shaun Lr Discharging Clinician: Hayley Bosch Anticipated Discharge Date/Time: 09/18/24 11:00 Patient Disposition: Home Activity: as tolerated Diet: as tolerated and low sodium Discharge Instructions: Medication changes: Start the Augmentin and take until completed Decrease dose of Eliquis--2.5 mg twice a day Increase dose of midodrine--5 mg three times a day Decrease dose of bumex--0.5 mg Daily may take extra dose if you have increased lower Extremity swelling Potassium chloride--10 mEq daily and recheck labs in a week Continue other home medicines as previously prescribed Patient Instructions: Antibiotic Form, Amoxicillin/Clavulanate Potassium (By mouth), Midodrine (By mouth), Fall Prevention for Older Adults (DC), Hypotension (DC) Patient Language: Citizen Of [place] Stand Alone Forms: General Discharge Information Follow-up/Referrals: Denis Hansen MD [Primary Care Provider] - Follow Up with Primary Dr Discharge Medications: New Eliquis 2.5 mg Tablet 2.5 mg BYMOUTH Q12HR Qty: 60 0RF midodrine 5 mg tablet 5 mg PO TID Qty: 90 2RF Rx Instructions: do not give last dose of day after 6PM or within 4 hrs of bedtime bumetanide 1 mg Tablet 0.5 mg PO DAILY Qty: 15 0RF amoxicillin-pot clavulanate [Augmentin] 500-125 mg tablet 1 tablet PO Q12H Qty: 14 0RF potassium chloride 10 mEq capsule, extended release 10 meq PO DAILY Qty: 30 0RF midodrine 2.5 mg Tablet 5 mg PO TID Qty: 90 0RF Continued pravastatin 20 mg Tablet 10 mg PO DAILY lactulose 10 gram/15 mL solution 20 g PO TID Patient Comments: PT CAN ONLY TOLERATE KRISTALOSE BRAND OF LACTULOSE Rx Instructions: 2 PACKETS (20GM) BY MOUTH TID. MAY HOLD DOSE IF HAS BOWEL MOVEMENT. gabapentin 100 mg capsule 100 mg PO HS Xifaxan 550 mg tablet 550 mg PO BID Patient Comments: has been taking since December per [facility] omeprazole 40 mg capsule,delayed release(DR/EC) 40 mg PO DAILY ursodiol 500 mg tablet 500 mg PO BID acetaminophen 650 tablet PO Q6H PRN (Reason: Pain) oxycodone 5 mg Tablet 5 mg PO Q8H PRN (Reason: Pain Rated 7-10) Qty: 20 0RF pantoprazole 40 mg Tablet,Delayed Release (Dr/Ec) 40 mg PO DAILY Qty: 30 0RF docusate sodium 100 mg Capsule 100 mg PO BID PRN (Reason: Constipation) Qty: 60 0RF calcium carbonate 500 mg calcium (1,250 mg) Tablet,Chewable 200 mg PO Q2H PRN (Reason: Indigestion) Qty: 90 0RF ferrous sulfate 325 mg (65 mg iron) Tablet,Delayed Release (Dr/Ec) 325 mg PO DAILY Qty: 30 0RF cholecalciferol (vitamin D3) 125 mcg (5,000 unit) Tablet 5,000 unit PO DAILY Qty: 30 0RF multivitamin with folic acid [Thera] 400 mcg Tablet 1 tablet PO QAM Qty: 30 0RF methocarbamol 500 mg Tablet 1,000 mg PO TID Qty: 90 0RF lidocaine [Blue-Emu Lidocaine Patch] 4 % Adhesive Patch,Medicated 2 patch TOPICAL DAILY Qty: 30 0RF polyethylene glycol 3350 17 gram Powder In Packet 17 g PO DAILY Qty: 30 0RF Discontinued potassium chloride 20 mEq tablet,ER particles/crystals 20 meq PO DAILY bumetanide 1 mg tablet 1 mg PO Q12H amoxicillin-pot clavulanate 875-125 mg tablet 1 tablet PO Q12H midodrine 2.5 mg tablet 2.5 mg PO TID Qty: 90 0RF Eliquis 5 mg Tablet 5 mg PO BID Qty: 60 0RF Date of admission: 09/16/24 12:51 Primary Care Provider: Denis Hansen Admitting Provider: Son Pollard Attending physician on admission: Son Pollard Condition: Improved Quality VTE Prophylaxis VTE prophylaxis: pharmacologic ordered (Eliquis--dose adjusted) -Patient's previous records reviewed on admission -ER notes reviewed in detail on admission -discussed all findings and current treatment plan with patient/Family/POA -Consultations reviewed for recommendations -Patient's disposition for safe discharge discussed with supportive employment case manager Dictation performed by Smash[employer] direct speech recognition software, therefore infectious disease technician variants and typographical errors may occur. Hospitalist MIPS Heart Failure (Exclusion) Patient has history of Heart Transplant or Left Ventricular Assistive Device?: No IF YES, STOP HERE Heart Failure (Qualifier) Patient has current or prior documentation of LVEF less than or equal to 40%, or mod/servere depressed LVSF?: No IF NO, STOP HERE
--- NOTE | 2024-09-18 10:52 | PC.NURSE ---
1030. iv removed pressure applied coban in place. dc instructions went over with family and her. they all vaocalize an understanding. daughter is nurse and claims she understaneds and talked with physician/internist about changes and follow ups. dc per wc to family auto. encouraged to call back for questions.
--- NOTE | 2024-09-20 11:20 | PC.NURSE ---
Called cell phone and home phone listed for patient contacts information. No answer at either number at this time.
== END 2024-09-18 10:30 | disposition home or self-care (01) ==
LOC: CHSED 12:51 → CHS2ND 09-17 07:17
PROVIDERS: Nurse Practitioner; Nurse Practitioner Family; Admitting Provider Internal Medicine; Emergency Provider Emergency Medicine; PCP Internal Medicine; Visit Provider Internal Medicine
DX: I95.9 Hypotension, unspecified (principal); N17.9 Acute kidney failure, unspecified; R82.90 Unspecified abnormal findings in urine; E86.0 Dehydration; E87.6 Hypokalemia; I48.20 Chronic atrial fibrillation, unspecified; K74.3 Primary biliary cirrhosis; K21.9 Gastro-esophageal reflux disease without esophagitis; N18.9 Chronic kidney disease, unspecified; I50.9 Heart failure, unspecified; E78.5 Hyperlipidemia, unspecified; Z79.01 Long term (current) use of anticoagulants
CPT/HCPCS: 36415; 80048; 80053; 83735; 85025; 85055; 93005; 96361; 96365; 96366; 99285; A9270; G0378; J0696; J7030; J7040

== ENCOUNTER 2024-09-27 10:52 | Outpatient (CLI) | payer MEDICARE, SELFPAY ==
--- OUTSIDE RECORDS SUMMARY | 2024-09-27 11:00 | XMS_ITS | Encounter Summary ---
Author Organization [facility] Address [address] [place] [address] Phone Care Team Providers Care Foreign Trade Teacher Name Role Phone Denis Hansen MD Primary Care Provider Suzanne Klein MD Unavailable [phone] Laurence Oden 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
--- OUTSIDE RECORDS SUMMARY | 2024-09-27 11:00 | XMS_ITS | Encounter Summary ---
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
--- OUTSIDE RECORDS SUMMARY | 2024-09-27 11:00 | XMS_ITS | Encounter Summary ---
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
--- OUTSIDE RECORDS SUMMARY | 2024-09-27 11:00 | XMS_ITS | Encounter Summary ---
Author Organization [facility] Address [address] [place] [address] Care Team Providers Care Ham Clerk Name Role Phone Denis Hansen MD Primary Care Provider Suzanne Klein MD Unavailable Laurence Oden [facility] Unavailable Encounter Details Date Type Department Care Team (Late st Contact Info) Description 10/03/2019 Telephone [facility] [address] [place], [place] [id number] Laura Pérez MD [address] [facility] [address] [place], [place] [id number] Social History Tobacco Use Types Packs/Day Years Used Date Smoking Tobacco: Never Smokeless Tobacco: Never Alcohol Use Standard Drinks/Week Comments No 0 (1 standard drink = 0.6 oz pur e alcohol) Comments Unknown Sex and Gender Information Value Date Recorded Sex Assigned at Not on file Legal Sex Female 8:41 PM SLEEP TECHNICIAN Gender Identity Not on file Sexual Orientation Not on file 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 Not on file No t on file documented as of this encounter Plan of Treatment Not on file documented as of this encounter Visit Diagnoses Not on filedocumented in this encounter Care Teams Ham Clerk Relationship Specialty Start Date End Date Denis Hansen MD [address] [place] [address] PCP - General 12/26/16 Suzanne Klein MD [address] [place] [address] Medical Oncologist/Carbonizer Tester Hematology 06/09/21 Laurence Oden LCSW [address] [facility] ([facility] Mailstop [phone] [place] [address] SHOP Outpatient Stereoplotter Operator 07/12/23 08/09/23 documented as of this encounter
--- OUTSIDE RECORDS SUMMARY | 2024-09-27 11:00 | XMS_ITS | Encounter Summary ---
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
--- OUTSIDE RECORDS SUMMARY | 2024-09-27 11:00 | XMS_ITS | Encounter Summary ---
Author Organization [facility] Address [address] [place] [address] Phone Care Team Providers Care Wind Turbine Performance Engineer Name Role Phone Denis Hansen MD Primary Care Provider Suzanne Klein MD Unavailable Encounter Details Date Type Department Care Team (Late st Contact Info) Description 09/05/2024 Telephone [facility] Cardiology [address] [facility] Advanced Medicine [address]th [place] [address] [place] [address] Edson Vega MD [address] [facility] [address] [place], [place] [id number] Social History Tobacco Use Types Packs/Day Years Used Date Smoking Tobacco: Never Passive Smoke Exposure: Never Smokeless Tobacco: Never Alcohol Use Standard Drinks/Week Comments No 0 (1 standard drink = 0.6 oz pur e alcohol) [facility] Utilities Answer Date Recorded In the past 12 months has [employer] electric, gas, oil, or water company threatened [...] often do you attend chur ch or jew services? 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 * Telephone Encounter - Negar Trotter - 09/05/2024 12:11 PM CDT Silvia Patient's daughter called requesting lab orders to be sent to [facility]. She would also like to discuss questions she has regarding lasix. Adelita can be reached at [phone]. documented in this encounter Plan of Treatment Not on file documented as of this encounter Visit Diagnoses Not on filedocumented in this encounter Care Teams Wind Turbine Performance Engineer Relationship Specialty Start Date End Date Denis Hansen MD [address] [place] [address] PCP - General 12/26/16 Suzanne Klein MD [address] [place] [address] Medical Oncologist/Events Intern Hematology 06/09/21 documented as of this encounter
--- OUTSIDE RECORDS SUMMARY | 2024-09-27 11:00 | XMS_ITS | Encounter Summary ---
Author Organization [facility] Address [address] [place] [address] Phone Care Team Providers Care Stiff Neck Loader Name Role Phone Denis Hansen MD Primary Care Provider Suzanne Klein MD Unavailable Encounter Details Date Type Department Care Team (Late st Contact Info) Description 09/03/2024 Results Follow-Up [facility] Cardiology [address] [facility] [address] [place] [address] Edson Vega MD [address] [facility] [address] [place] [address] Pro B-type natriuretic peptide, Basic metabolic panel, Critical Result Callback Chemistry, Additional followed-up results: 2 Social History Tobacco Use Types Packs/Day Years Used Date Smoking Tobacco: Never Passive Smoke Exposure: Never Smokeless Tobacco: Never Alcohol Use Standard Drinks/Week Comments No 0 (1 standard drink = 0.6 oz pur e alcohol) [facility] Utilities Answer Date Recorded In the past 12 months has [employer], gas, oil, or water [employer] threatened to shut off services in your [...] How often do you attend chur or anabaptism services? More than 4 times per year 07/12/2023 Do you belong to any clubs o r organizations such as islam groups, unions, fraternal or athletic groups, or [...] were you homeless or living in a correction (including now)? No 07/12/2023 Personal Safety Answer Date Recorded Have you ever been in or are you currently in a harmful physical or emotional relationship or is someone making you feel afraid or unsafe? 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
--- OUTSIDE RECORDS SUMMARY | 2024-09-27 11:00 | XMS_ITS | Encounter Summary ---
Author Organization [facility] Address [address] [place] [address] Phone Care Team Providers Care Machine Tank Operator Name Role Phone Denis Hansen MD Primary Care Provider Suzanne Klein MD Unavailable [phone] Laurence Oden [facility] Unavailable [phone] Encounter Details Date Type Department Care Team [...] on file Legal Sex Female 8:41 PM HUMIDIFIER MAINTENANCE WORKER Gender Identity Not on file Sexual [...] filedocumented in this encounter Care Teams Machine Tank Operator Relationship Specialty Start Date End Date Denis Hansen MD [address] [place] [address] PCP - General 12/26/16 Suzanne Klein MD [address] [facility] [address] [place] [address] Medical Oncologist/Digital Campaign Manager Hematology 06/09/21 Laurence Oden LCSW [address] [facility] ([facility]) Mailstop [phone] [place] [address] SHOP Outpatient Loin Trimmer 07/12/23 08/09/23 documented as of this encounter
--- OUTSIDE RECORDS SUMMARY | 2024-09-27 11:00 | XMS_ITS | Encounter Summary ---
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
--- OUTSIDE RECORDS SUMMARY | 2024-09-27 11:00 | XMS_ITS | Encounter Summary ---
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
--- OUTSIDE RECORDS SUMMARY | 2024-09-27 11:00 | XMS_ITS | Encounter Summary ---
Author Organization [facility] Address [address] [place] [address] Phone Care Team Providers Care Government Affairs Manager Name Role Phone Denis Hansen MD Primary Care Provider Suzanne Klein MD Unavailable Laurence Oden [facility] Unavailable Encounter Details Date Type Department Care Team (Late st Contact Info) Description 05/12/2022 Telephone [facility] Cardiology [address] [facility] Advanced Medicine 8th [place] [address] [place] [address] Edson Vega MD [address] [facility] [address] [place] [address] Social History Tobacco Use Types [...] on file 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 Gender Identity Not on file Sexual Orientation Not on file 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 Not on file No t on file documented as of this encounter Plan of Treatment Not on file documented as of this encounter Visit Diagnoses Not on filedocumented in this encounter Care Teams Government Affairs Manager Relationship Specialty Start Date End Date Denis Hansen MD [address] [place] [address] PCP - General 12/26/16 Suzanne Klein MD [address] [place] [address] Medical Oncologist/Scalper Operator Hematology 06/09/21 Laurence Oden LCSW [address] [facility] ([facility] [facility] [phone] [place] [address] SHOP Outpatient Administrative Assistant Receptionist 07/12/23 08/09/23 documented as of this encounter
--- OUTSIDE RECORDS SUMMARY | 2024-09-27 11:00 | XMS_ITS | Encounter Summary ---
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
--- OUTSIDE RECORDS SUMMARY | 2024-09-27 11:00 | XMS_ITS | Encounter Summary ---
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
[2024-09-27 11:40] LABS: Add Urine Microscopic? NO; Appearance Urine Clear (Clear); Glucose Urine UA Negative (Negative); Hematocrit 31.3 % (35.0-42.0); Hemoglobin 10.2 g/dL (11.7-13.8); Leukocyte Esterase Ur Negative LEU/UL (Negative); Mean Corpuscular HGB Conc 32.6 g/dL (32-36); Mean Corpuscular Hemoglobin 31.7 pg (27.0-31.0); Mean Corpuscular Volume 97.2 fL (78.0-102.0); Nitrate Urine Negative (Negative); Platelet Count Result 217 K/mm3 (150-420); Red Blood Count 3.22 M/mm3 (4.20-5.40); Specific Grav Ur 1.015 (1.010-1.020); White Blood Count 6.4 K/mm3 (4.8-10.8)
[2024-09-27 11:47] LABS: Total Protein Urine Random 25 mg/dL; Ur Ttl Prot Creatinine Ratio 0.33 mg/mg (0-0.20)
[2024-09-27 12:00] LABS: Alanine Aminotransferase 17 U/L (6-35); Albumin Level 2.9 g/dL (3.5-5.1); Alkaline Phosphatase 207 U/L (38-126); Anion Gap 9 mmol/L (4-12); Aspartate Amino Transferase 53 U/L (14-36); Bilirubin,Total 1.6 mg/dL (0.2-1.3); Blood Urea Nitrogen 30 mg/dL (7-17); Calcium 9.8 mg/dL (8.4-10.2); Carbon Dioxide 27 mmol/L (22-30); Chloride 107 mmol/L (98-107); Estimated Glomerular Filt Rate 25; Glucose 101 mg/dL (65-110); Iron 227 ug/dL (37-170); Osmolality Calculated 302 mOsm/kg (285-295); Potassium 3.7 mmol/L (3.4-5.0); Sodium 143 mmol/L (137-145); Total Protein 7.0 g/dL (6.3-8.2)
[2024-09-27 12:35] LABS: Ferritin 225.00 ng/mL (11.1-264)
[2024-09-28 09:08] LABS: Immunoglobulin A, Qn 437 mg/dL (64-422); Immunoglobulin G, Qn 2332 mg/dL (586-1602); Immunoglobulin M, Qn 525 mg/dL (26-217)
[2024-09-30 14:08] LABS: Free Lambda Lt Chains, Serum 82.1 mg/L (5.7-26.3); Kappa/Lambda Ratio, Serum 1.53 (0.26-1.65)
[2024-10-01 13:09] LABS: Immunoglobulin A, Qn 441 mg/dL (64-422); Immunoglobulin G, Qn 2363 mg/dL (586-1602); Immunoglobulin M, Qn 525 mg/dL (26-217)
== END 2024-09-27 10:53 | disposition home or self-care (01) ==
PROVIDERS: PCP Internal Medicine; Visit Provider Internal Medicine Cardiovascular Disease
DX: E87.70 Fluid overload, unspecified (principal); E85.9 Amyloidosis, unspecified; K74.69 Other cirrhosis of liver
CPT/HCPCS: 36415; 80053; 81003; 82570; 82728; 82784; 83521; 83540; 84156; 85027; 86334

== ENCOUNTER 2024-10-16 15:50 | Outpatient (CLI) | payer MEDICARE, SELFPAY ==
--- OUTSIDE RECORDS SUMMARY | 2024-10-16 15:54 | XMS_ITS | Encounter Summary ---
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 Gender Identity Not on file Sexual [...] on filedocumented in this encounter Care Teams Art History Professor Relationship Specialty Start Date End Date Denis Hansen MD [address] [place] [address] PCP - General 12/26/16 Suzanne Klein MD [address] [place] [address] Medical Oncologist/Senior It Auditor Hematology 06/09/21 Laurence Oden LCSW [address] [facility] ([facility] [place] Mailstop [phone] [place] [address] [facility] Outpatient Import And Export Clerk 07/12/23 08/09/23 documented as of this encounter
--- OUTSIDE RECORDS SUMMARY | 2024-10-16 15:54 | XMS_ITS | Encounter Summary ---
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 [address] [place] [address] Medical Oncologist/Supervisor Bottle House Cleaners Hematology 06/09/21 Laurence Oden LCSW [address] [facility] ([facility]) Mailstop [phone] [place] [address] [facility] Outpatient Tactical Debriefer 07/12/23 08/09/23 documented as of this encounter
--- OUTSIDE RECORDS SUMMARY | 2024-10-16 15:54 | XMS_ITS | Encounter Summary ---
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 [place]) Mailstop [phone] [place] [address] SHOP Outpatient Airport Shuttle Driver 07/12/23 08/09/23 documented as of this encounter
--- OUTSIDE RECORDS SUMMARY | 2024-10-16 15:54 | XMS_ITS | Encounter Summary ---
Author Organization [facility] Address [address] [place] [address] Phone Care Team Providers Care Front Line Leader Name Role Phone Denis Hansen MD Primary Care Provider [phone] Suzanne Klein MD Unavailable [phone] Laurence Oden 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
--- OUTSIDE RECORDS SUMMARY | 2024-10-16 15:54 | XMS_ITS | Clinical Summary ---
Author Organization [facility] Address [address] [place] [address] Care Team Providers Care Financial Administrator Name Role Phone Denis Hansen MD Primary Care Provider [phone] Allergies Active Allergy Reactions Criticality Noted Date [...] continue eliquis for the time being A-fib ([facility]) 11/11/2017 Assessment & Plan (11/11/2017 [...] to complete this topic Insurance MED REPLACE [facility] MEDICARE [facility] Advance Directives * Full Code (Latest Code Status on File) Date Activated Date Inactivated Comments 11/11/2017 6:20 PM 11/14/2017 7:49 PM Care Teams Financial Administrator Relationship Specialty Start Date End Date Denis Hansen MD [address] [place] [id number] PCP - General INTERNAL MEDICINE 11/11/17
--- OUTSIDE RECORDS SUMMARY | 2024-10-16 15:54 | XMS_ITS | Encounter Summary ---
Author Organization [facility] Address [address] [place] [address] Phone Care Team Providers Care Bowl Turner Name Role Phone Denis Hansen MD Primary Care Provider Suzanne Klein MD Unavailable Laurence Oden [facility] Unavailable Encounter Details Date Type Department Care Team (Late st Contact Info) Description 05/12/2022 Telephone 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 Not on file No t on file documented as of this encounter Plan of Treatment Not on file documented as of this encounter Visit Diagnoses Not on filedocumented in this encounter Care Teams Bowl Turner Relationship Specialty Start Date End Date Denis Hansen MD [address] [place] [address] PCP - General 12/26/16 Suzanne Klein MD [address] [place] [address] Medical Oncologist/Global Coordinator Hematology 06/09/21 Laurence Oden LCSW [address] [facility] ([facility]) Mailstop [phone] [place] [address] [facility] Outpatient [place]en Vessel Pilot 07/12/23 08/09/23 documented as of this encounter
--- OUTSIDE RECORDS SUMMARY | 2024-10-16 15:54 | XMS_ITS | Encounter Summary ---
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
--- OUTSIDE RECORDS SUMMARY | 2024-10-16 15:54 | XMS_ITS | Continuity of Care Document ---
Author Organization [facility] Address [address] [facility] [address] [place] [address] Insurance Providers Payer Plan Claims Address Claims Phone Policy Number Group Number Relation Employer Guarantor Name Guarantor Guarantor Address Guarantor Phone [employer] [address] [address], [place] [address] tel:[phone] Vaibhav Dinh [address] [place] [address] [employer] [address], [place] [address] tel:[phone] Vaibhav iDnh [address] [place] [address] [employer] [address], [place] [address] tel:[phone] Vaibhav Dinh [address] [place] [address] Problems Condition ICD9 code ICD10 [...]
--- OUTSIDE RECORDS SUMMARY | 2024-10-16 15:54 | XMS_ITS | Encounter Summary ---
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
--- OUTSIDE RECORDS SUMMARY | 2024-10-16 15:54 | XMS_ITS | Encounter Summary ---
Author Organization [facility] Address [address] [place] [address] Phone Care Team Providers Care Liner Machine Operator Name Role Phone Denis Hansen MD Primary Care Provider Suzanne Klein MD Unavailable Encounter Details Date Type Department Care Team (Late st Contact Info) Description 09/03/2024 Results Follow-Up [facility] Cardiology [address] [facility] [address] [place] [address] Edson Vega MD [address] [facility] [address] [place] [address] Pro B-type natriuretic peptide, Basic metabolic panel, Critical Result Callback Chemistry, Additional followed-up results: 2 Social History Tobacco Use Types Packs/Day Years Used Date Smoking Tobacco: Never Passive Smoke Exposure: Never Smokeless Tobacco: Never Alcohol Use Standard Drinks/Week Comments No 0 (1 standard drink = 0.6 oz pur e alcohol) [facility] Utilities Answer Date Recorded In the past 12 months has [employer], gas, oil, or water [employer] threatened to shut off services in your home? No 07/12/2023 Social Connection and Isolation Panel Answer Date Recorded In a typical week, how many times do you talk on the phone with family, friends, or neighbors? More than three times a week 07/12/2023 How often do you get togethe r with friends or relatives? More than three times a week 07/12/2023 How often do you attend chur ch or yazdanism services? 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
--- OUTSIDE RECORDS SUMMARY | 2024-10-16 15:54 | XMS_ITS | Encounter Summary ---
Author Organization [facility] Address [address] [place] [address] Care Team Providers Care Taximeter Repairer Name Role Phone Denis Hansen MD Primary Care Provider [phone] Encounter Details Date Type Department Care Team (Latest Contact Info) Description 11/12/2017 Abstract [facility] Medical Group Michell Ruelas MD Social History [...] on filedocumented in this encounter Care Teams Taximeter Repairer Relationship Specialty Start Date End Date Denis Hansen MD [address] [place] [id number] PCP - General INTERNAL MEDICINE 11/11/17 documented as of this encounter
--- OUTSIDE RECORDS SUMMARY | 2024-10-16 15:54 | XMS_ITS | Encounter Summary ---
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
--- OUTSIDE RECORDS SUMMARY | 2024-10-16 15:54 | XMS_ITS | Encounter Summary ---
Author Organization [facility] Address [address] [place] [address] Phone Care Team Providers Care Checkroom Attendant Name Role Phone Denis Hansen MD Primary Care Provider Suzanne Klein MD Unavailable [phone] Laurence Oden [facility] Unavailable [phone] Encounter Details Date Type Department Care Team [...] on file Legal Sex Female 8:41 PM PROSTHETICS LAB TECHNICIAN Gender Identity Not on file [...] on filedocumented in this encounter Care Teams Checkroom Attendant Relationship Specialty Start Date End Date Denis Hansen MD [address] [place] [address] PCP - General 12/26/16 Suzanne Klein MD [address] [facility] [address] [place] [address] Medical Oncologist/Hardwood Floor Refinisher Hematology 06/09/21 Laurence Oden LCSW [address] [facility] ([facility]) Mailstop [phone] [place] [address] [facility] Outpatient License And Permit Specialist 07/12/23 08/09/23 documented as of this encounter
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
--- OUTSIDE RECORDS SUMMARY | 2024-10-16 15:54 | XMS_ITS | Encounter Summary ---
Author Organization 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
--- OUTSIDE RECORDS SUMMARY | 2024-10-16 15:54 | XMS_ITS | Encounter Summary ---
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 file No t on file documented as of this encounter Plan of Treatment Not on file documented as of this encounter Visit Diagnoses Not on filedocumented in this encounter Care Teams Sap Basis Relationship Specialty Start Date End Date Denis Hansen MD [address] [place] [address] PCP - General 12/26/16 Suzanne Klein MD [address] [place] [address] Medical Oncologist/Checker Cashier Hematology 06/09/21 Laurence Oden LCSW [address] [facility] ([facility]) Mailstop [phone] [place] [address] SHOP Outpatient Grill Cook 07/12/23 08/09/23 documented as of this encounter
[2024-10-16 16:23] LABS: Hematocrit 32.3 % (35.0-42.0); Hemoglobin 10.6 g/dL (11.7-13.8); Mean Corpuscular HGB Conc 32.8 g/dL (32-36); Mean Corpuscular Hemoglobin 31.6 pg (27.0-31.0); Mean Corpuscular Volume 96.4 fL (78.0-102.0); Platelet Count Result 207 K/mm3 (150-420); Red Blood Count 3.35 M/mm3 (4.20-5.40); White Blood Count 6.8 K/mm3 (4.8-10.8)
[2024-10-16 16:36] LABS: Alanine Aminotransferase 18 U/L (6-35); Albumin Level 2.7 g/dL (3.5-5.1); Alkaline Phosphatase 198 U/L (38-126); Anion Gap 6 mmol/L (4-12); Aspartate Amino Transferase 55 U/L (14-36); Bilirubin,Total 1.6 mg/dL (0.2-1.3); Blood Urea Nitrogen 30 mg/dL (7-17); Calcium 9.4 mg/dL (8.4-10.2); Carbon Dioxide 26 mmol/L (22-30); Chloride 110 mmol/L (98-107); Estimated Glomerular Filt Rate 33; Glucose 112 mg/dL (65-110); Osmolality Calculated 301 mOsm/kg (285-295); Potassium 4.9 mmol/L (3.4-5.0); Sodium 142 mmol/L (137-145); Total Protein 6.7 g/dL (6.3-8.2)
[2024-10-16 16:45] LABS: NT Pro B Type Natriuretic Pept 1990 pg/mL (19.9-100)
== END 2024-10-16 15:51 | disposition home or self-care (01) ==
LOC: CHSLAB 15:52
PROVIDERS: PCP Internal Medicine; Visit Provider Internal Medicine
DX: I50.9 Heart failure, unspecified (principal); N18.30 Chronic kidney disease, stage 3 unspecified; N39.0 Urinary tract infection, site not specified
CPT/HCPCS: 36415; 80053; 83880; 85027

== ENCOUNTER 2024-10-25 09:06 | Outpatient (CLI) | payer MEDICARE, SELFPAY ==
--- OUTSIDE RECORDS SUMMARY | 2024-10-25 09:17 | XMS_ITS | Encounter Summary ---
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
--- OUTSIDE RECORDS SUMMARY | 2024-10-25 09:17 | XMS_ITS | Encounter Summary ---
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
--- OUTSIDE RECORDS SUMMARY | 2024-10-25 09:17 | XMS_ITS | Encounter Summary ---
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
--- OUTSIDE RECORDS SUMMARY | 2024-10-25 09:17 | XMS_ITS | Encounter Summary ---
Author Organization [facility] Address [address] [place] [address] Phone Care Team Providers Care Handhole Machine Operator Name Role Phone Denis Hansen MD Primary Care Provider Suzanne Klein MD Unavailable Laurence Oden [facility] Unavailable Encounter Details Date Type Department Care Team (Late st Contact Info) Description 05/12/[address] [facility] Medicine Cardiology [address] 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 Not on file No t on file documented as of this encounter Plan of Treatment Not on file documented as of this encounter Visit Diagnoses Not on filedocumented in this encounter Care Teams Handhole Machine Operator Relationship Specialty Start Date End Date Denis Hansen MD [address] [place] [address] PCP - General 12/26/16 Suzanne Klein MD [address] [place] [address] Medical Oncologist/Supervisor Pumping Station Hematology 06/09/21 Laurence Oden LCSW [address] [facility] ([facility]) Mailstop [phone] [place] [address] SHOP Outpatient Electromedical Equipment Repairer 07/12/23 08/09/23 documented as of this encounter
--- OUTSIDE RECORDS SUMMARY | 2024-10-25 09:17 | XMS_ITS | Encounter Summary ---
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) Mailstop [phone] [place] [address] SHOP Outpatient High School Mathematics Teacher 07/12/23 08/09/23 documented as of this encounter
--- OUTSIDE RECORDS SUMMARY | 2024-10-25 09:17 | XMS_ITS | Encounter Summary ---
Author Organization [facility] Address [address] [place] [address] Phone Care Team Providers Care Wet Cotton Feeder Name Role Phone Denis Hansen MD Primary Care Provider Suzanne Klein MD Unavailable [phone] Laurence Oden [facility] Unavailable [phone] Encounter Details Date Type Department Care Team [...] on file Legal Sex Female 8:41 PM PROFESSOR OF LEGAL STUDIES Gender Identity Not on file Sexual Orientation [...] on filedocumented in this encounter Care Teams Wet Cotton Feeder Relationship Specialty Start Date End Date Dneis Hansen MD [address] [place] [address] PCP - General 12/26/16 Suzanne Klein MD [address] [facility] [address] [place] [address] Medical Oncologist/Resolution Expert Hematology 06/09/21 Laurence Oden LCSW 64[address] [facility] ([facility]) Mailstop [phone] [place] [address] SHOP Outpatient Tire Buster 07/12/23 08/09/23 documented as of this encounter
--- OUTSIDE RECORDS SUMMARY | 2024-10-25 09:17 | XMS_ITS | Encounter Summary ---
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
--- OUTSIDE RECORDS SUMMARY | 2024-10-25 09:17 | XMS_ITS | Encounter Summary ---
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
--- OUTSIDE RECORDS SUMMARY | 2024-10-25 09:17 | XMS_ITS | Encounter Summary ---
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
--- OUTSIDE RECORDS SUMMARY | 2024-10-25 09:17 | XMS_ITS | Encounter Summary ---
Author Organization [facility] Address [address] [place] [address] Care Team Providers Care Railway Head Tender Name Role Phone Denis Hansen MD Primary Care Provider [phone] Suzanne Klein MD Unavailable Laurence Oden [facility] Unavailable Encounter Details Date Type Department Care Team (Late st Contact Info) Description 10/03/2019 Telephone [facility]) [address] [place], [place] [id number] Laura Pérez MD [address] [facility] [address], [place] [id number] Social History Tobacco Use Types Packs/Day Years Used Date Smoking Tobacco: Never Smokeless Tobacco: Never Alcohol Use Standard Drinks/Week Comments No 0 (1 standard drink = 0.6 oz pur e alcohol) Comments Unknown Sex and Gender Information Value Date Recorded Sex Assigned at Not on file 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 Gender Identity Not on file Sexual Orientation Not on file 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 Not on file No t on file documented as of this encounter Plan of Treatment Not on file documented as of this encounter Visit Diagnoses Not on filedocumented in this encounter Care Teams Railway Head Tender Relationship Specialty Start Date End Date Denis Hansen MD [address] [place] [address] PCP - General 12/26/16 Suzanne Klein MD [address] [place] [address] Medical Oncologist/Auto Body Technician Hematology 06/09/21 Laurence Oden LCSW 0[facility] ([facility] Mailstop [phone] [place] [address] SHOP Outpatient Retail Coverage Merchandiser 07/12/23 08/09/23 documented as of this encounter
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
--- OUTSIDE RECORDS SUMMARY | 2024-10-25 09:17 | XMS_ITS | Encounter Summary ---
Author Organization [facility] Address [address] [place] [address] Phone Care Team Providers Care Tool Or Die Drawing Checker Name Role Phone Denis Hansen MD Primary Care Provider Suzanne Klein MD Unavailable Encounter Details Date Type Department Care Team (Late st Contact Info) Description 09/03/2024 Results Follow-Up [facility] [address] [place] [address] Edson Vega MD [address] [facility] [place] [address] Pro B-type natriuretic peptide, Basic metabolic panel, Critical Result Callback Chemistry, Additional followed-up results: 2 Social History Tobacco Use Types Packs/Day Years Used Date Smoking Tobacco: Never Passive Smoke Exposure: Never Smokeless Tobacco: Never Alcohol Use Standard Drinks/Week Comments No 0 (1 standard drink = 0.6 oz pur e alcohol) [facility] Utilities Answer Date Recorded In the past 12 months has [employer], gas, oil, or water [email or web address] threatened to shut off services in your [...] often do you attend chur ch or restoration services? 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
--- OUTSIDE RECORDS SUMMARY | 2024-10-25 09:17 | XMS_ITS | Encounter Summary ---
Author Organization 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
== END 2024-10-25 09:07 | disposition home or self-care (01) ==
LOC: CHSLAB 09:09
PROVIDERS: PCP Internal Medicine; Visit Provider Internal Medicine Cardiovascular Disease
DX: I95.1 Orthostatic hypotension (principal); E87.70 Fluid overload, unspecified; I50.32 Chronic diastolic (congestive) heart failure
CPT/HCPCS: 84156; 84166; 86335